=== PATIENT | male | born 1955 | race Caucasian/White ===

== ENCOUNTER 2016-08-01 12:37 | Outpatient (CLI) | payer OTHER | END 2016-08-01 12:38 | disposition home or self-care (01) | DX: R73.01 Impaired fasting glucose (principal); R79.0 Abnormal level of blood mineral ==

== ENCOUNTER 2016-08-11 11:01 | Outpatient (CLI) | payer OTHER | END 2016-08-11 11:02 | disposition home or self-care (01) | DX: R73.01 Impaired fasting glucose (principal); R79.0 Abnormal level of blood mineral ==

== ENCOUNTER 2016-10-08 11:07 | Outpatient (CLI) | payer OTHER ==
--- NOTE | 2016-10-09 09:50 | XRAY Report ---
TWO-VIEW CHEST: 10/08/2016 CLINICAL INDICATION: Pulmonary sarcoidosis. COMPARISON: 04/06/2014 FINDINGS: Frontal and lateral views of the chest demonstrate a normal cardiac silhouette. A left pierre bclavian dual-chamber pacemaker is now in place, with leads terminating in the expected locations of the right atrium and right ventricle. Bilateral hilar fullness persists, as does reticular nodular i nterstitial opacities predominant in the upper lobes, compatible with the given diagnosis of sarcoido sis. No effusion or pneumothorax is present. Previously noted mass-like consolidation in the right upper lobe has improved. IMPRESSION: FINDINGS COMPATIBLE WITH SARCOIDOSIS. NO EVIDENCE OF ACUTE CARDIOPULMONARY DISEASE. JOB #: [id number] EXT JOB #:[id number]
== END 2016-10-08 11:08 | disposition home or self-care (01) ==
LOC: DI.S 11:07
PROVIDERS: ATTEND Nurse Practitioner Family
DX: D86.0 Sarcoidosis of lung (principal)
CPT/HCPCS: 71020

== ENCOUNTER 2016-11-18 13:55 | Outpatient (CLI) | payer MEDICARE, OTHER ==
--- NOTE | 2016-11-20 11:43 | XRAY Report ---
RIGHT HAND, THREE VIEWS: 11/18/2016 CLINICAL HISTORY: Gout. FINDINGS: Mild narrowing is noted in the 1st MP joint and 3rd MP joint with a moderate degree of narrowing seen in the 2nd MP joint. Mild narrowing is noted in the proximal interphalangeal joints. Significant narrowing is seen in the distal interphalangeal joints of the ring and little fingers. Mild narrowing is seen in the distal interphalangeal joints of the index, middle, and thumb. There is a defect noted in the radial aspect of the head of the 2nd metacarpal. This is a V-shaped defect. This may be result of old trauma. Other possibility is erosive change due to gout. There is also subtle erosive change noted occurring in the ulnar aspect of the head of the 1st metacarpal that does appear to have an overhanging edge and may represent a subtle sign of gout. IMPRESSION: ARTHRITIC CHANGES NOTED IN THE RIGHT HAND. MOST OF THE ARTHRITIC CHANGE SEEN IS RELATED TO OSTEOARTHRITIS. EQUIVOCAL FINDINGS ARE NOTED IN REGARD TO GOUT INVOLVING THE RADIAL ASPECT OF THE HEAD OF THE 2ND METACARPAL AND THE ULNAR ASPECT OF THE HEAD OF THE 1ST METACARPAL. JOB #: [id number] EXT JOB #: [id number] LAMONTE
== END 2016-11-18 13:56 | disposition home or self-care (01) ==
LOC: DI.S 13:55
PROVIDERS: ATTEND Nurse Practitioner Family
DX: M19.041 Primary osteoarthritis, right hand (principal)

== ENCOUNTER 2016-11-30 08:00 | Outpatient (CLI) | payer MEDICARE | END 2016-11-30 23:59 | disposition home or self-care (01) | LOC: LAB.R 08:00 | PROVIDERS: ATTEND Nurse Practitioner Family | DX: R19.4 Change in bowel habit (principal) | CPT/HCPCS: 82270 ==

== ENCOUNTER 2016-12-03 07:57 | Outpatient (CLI) | payer MEDICARE ==
[2016-12-03 11:09] LABS: BASOPHILS # (AUTO) 0.1 10^3/uL (0.0-0.1); BASOPHILS % (AUTO) 1.3 %; EOSINOPHILS # (AUTO) 0.2 10^3/uL (0.0-0.7); HGB - HEMOGLOBIN 14.5 g/dL (14.0-18.0); LYMPHOCYTES # (AUTO) 0.6 10^3/uL (1.5-3.5); LYMPHOCYTES % (AUTO) 7.9 %; MEAN CORPUSCULAR HEMOGLOBIN 31.9 pg (27.0-31.0); MEAN CORPUSCULAR HGB CONC 33.7 g/dL (32.0-36.0); MEAN CORPUSCULAR VOLUME 94.8 fL (80.0-94.0); MEAN PLATELET VOLUME 8.4 fL (7.4-11.4); MONOCYTES # (AUTO) 0.7 10^3/uL (0.0-1.0); MONOCYTES % (AUTO) 10.4 %; NEUTROPHILS # (AUTO) 5.6 10^3/uL (1.5-6.6); NEUTROPHILS % (AUTO) 77.4 %; NUCLEATED RED BLOOD CELLS AUTO 0.2 /100WBC; RED BLOOD COUNT 4.54 10^6/uL (4.70-6.10); RED CELL DISTRIBUTION WIDTH 14.2 % (12.0-15.0); UNCORRECTED WHITE BLOOD COUNT 7.2 x10^3/uL; WHITE BLOOD COUNT 7.2 x10^3/uL (4.8-10.8)
[2016-12-03 11:23] LABS: ALBUMIN/GLOBULIN RATIO 1.2 (1.0-2.2); BILIRUBIN,TOTAL 0.8 mg/dL (0.2-1.0); CALCIUM 9.1 mg/dL (8.5-10.3); CREATININE 1.1 mg/dL (0.6-1.2); POTASSIUM 4.3 mmol/L (3.5-5.0); TOTAL PROTEIN 6.9 g/dL (6.7-8.2)
[2016-12-03 11:40] LABS: HEMOGLOBIN A1C 0.63 g/dL
== END 2016-12-03 07:58 | disposition home or self-care (01) ==
LOC: LAB.F 07:57
PROVIDERS: ATTEND Nurse Practitioner Family
DX: R73.01 Impaired fasting glucose (principal); D64.9 Anemia, unspecified; R79.0 Abnormal level of blood mineral
CPT/HCPCS: 36415; 80053; 83036; 83540; 84466; 85025

== ENCOUNTER 2017-04-01 09:37 | Outpatient (CLI) | payer MEDICARE | END 2017-04-01 09:38 | disposition home or self-care (01) | LOC: LAB.F 09:37 | PROVIDERS: ATTEND Nurse Practitioner Family | DX: Z78.9 Other specified health status (principal) | CPT/HCPCS: 36415; 86803 ==

== ENCOUNTER 2017-06-15 09:18 | Outpatient (CLI) | payer MEDICARE ==
[2017-06-15 18:06] LABS: BASOPHILS % (AUTO) 2.2 %; EOSINOPHILS % (AUTO) 3.5 %; HGB - HEMOGLOBIN 13.4 g/dL (14.0-18.0); LYMPHOCYTES % (AUTO) 11.9 %; MEAN CORPUSCULAR HEMOGLOBIN 30.5 pg (27.0-31.0); MEAN CORPUSCULAR HGB CONC 32.3 g/dL (32.0-36.0); MEAN CORPUSCULAR VOLUME 94.3 fL (80.0-94.0); MEAN PLATELET VOLUME 8.4 fL (7.4-11.4); MONOCYTES % (AUTO) 12.3 %; NEUTROPHILS % (AUTO) 70.1 %; PLT - PLATELET COUNT 232 10^3/uL (130-450); RED CELL DISTRIBUTION WIDTH 14.4 % (12.0-15.0)
[2017-06-15 18:22] LABS: ABNORMAL LYMPHS % (MANUAL) 0 %
[2017-06-15 18:31] LABS: % IRON SATURATION 19 % (20-50); ALBUMIN 3.7 g/dL (3.2-5.5); ALBUMIN/GLOBULIN RATIO 1.2 (1.0-2.2); ALKALINE PHOSPHATASE 61 IU/L (42-121); ALT ALANINE AMINOTRANSFERASE 13 IU/L (10-60); AST ASPARTATE AMINOTRANSFERASE 17 IU/L (10-42); BILIRUBIN,TOTAL 0.6 mg/dL (0.2-1.0); BUN - BLOOD UREA NITROGEN 28 mg/dL (6-20); CALCIUM 9.1 mg/dL (8.5-10.3); CARBON DIOXIDE - CO2 27 mmol/L (21-32); CHLORIDE 107 mmol/L (101-111); CHOL/HDL RATIO 6.1 (<5.0); CHOLESTEROL 158 mg/dL; CREATININE 1.3 mg/dL (0.6-1.2); GFR - MDRD 56 (>89); GLUCOSE 82 mg/dL (70-100); HDL CHOLESTEROL 26 mg/dL; IRON 73 ug/dL (45-182); LDL CHOLESTEROL,CALCULATED 113 mg/dL; LDL/HDL RATIO 4.3 (<3.6); SODIUM 138 mmol/L (135-145); TOTAL IRON BINDING CAPACITY 378 ug/dL (250-450); TOTAL PROTEIN 6.9 g/dL (6.7-8.2); TRANSFERRIN 270 mg/dL (180-329); URIC ACID 9.9 mg/dL (2.6-7.2); VLDL CHOLESTEROL 19 mg/dL
[2017-06-15 21:54] LABS: BAND NEUTROPHILS % (MANUAL) 4 %; BASOPHILS # (MANUAL) 0.1 10^3/uL (0-0.1); BASOPHILS % (MANUAL) 2 %; EOSINOPHILS # (MANUAL) 0.2 10^3/uL (0-0.7); LYMPHOCYTES # (MANUAL) 0.3 10^3/uL (1.5-3.5); LYMPHOCYTES % (MANUAL) 5 %; MONOCYTES # (MANUAL) 0.7 10^3/uL (0.0-1.0); NEUTROPHILS # (MANUAL) 4.6 10^3/uL (1.5-6.6); NEUTROPHILS % (MANUAL) 73 %; PLATELET ESTIMATE, MANUAL NORMAL (130-450,000) (NORMAL); PLATELET MORPHOLOGY NORMAL APPEARANCE (NORMAL); RBC MORPHOLOGY (MULTIPLE) NORMAL APPEARANCE (NORMAL)
[2017-06-15 21:55] LABS: DIFFERENTIAL COMMENT MANUAL DIFFERENTIAL
== END 2017-06-15 09:19 | disposition home or self-care (01) ==
LOC: LAB.S 09:18
PROVIDERS: ATTEND Nurse Practitioner Family
DX: E78.5 Hyperlipidemia, unspecified (principal); M10.9 Gout, unspecified; R79.0 Abnormal level of blood mineral
CPT/HCPCS: 36415; 80053; 80061; 82728; 83540; 83721; 84466; 84550; 85025

== ENCOUNTER 2017-07-06 14:28 | Outpatient (CLI) | payer MEDICARE ==
[2017-07-06 17:50] LABS: BASOPHILS # (AUTO) 0.1 10^3/uL (0.0-0.1); BASOPHILS % (AUTO) 1.1 %; EOSINOPHILS # (AUTO) 0.2 10^3/uL (0.0-0.7); EOSINOPHILS % (AUTO) 1.3 %; HGB - HEMOGLOBIN 14.5 g/dL (14.0-18.0); LYMPHOCYTES # (AUTO) 0.7 10^3/uL (1.5-3.5); LYMPHOCYTES % (AUTO) 5.4 %; MEAN CORPUSCULAR HEMOGLOBIN 30.3 pg (27.0-31.0); MEAN CORPUSCULAR HGB CONC 32.6 g/dL (32.0-36.0); MEAN PLATELET VOLUME 8.5 fL (7.4-11.4); MONOCYTES % (AUTO) 8.2 %; NEUTROPHILS # (AUTO) 10.1 10^3/uL (1.5-6.6); PLT - PLATELET COUNT 215 10^3/uL (130-450); RED BLOOD COUNT 4.78 10^6/uL (4.70-6.10); RED CELL DISTRIBUTION WIDTH 14.3 % (12.0-15.0); WHITE BLOOD COUNT 12.1 x10^3/uL (4.8-10.8)
[2017-07-06 18:52] LABS: HB2 TOTAL 15.5 g/dL; HEMOGLOBIN A1C 0.62 g/dL; HEMOGLOBIN A1C % 5.8 % (4.6-6.2)
== END 2017-07-06 14:29 | disposition home or self-care (01) ==
LOC: LAB.S 14:28
PROVIDERS: ATTEND Nurse Practitioner Family
DX: R73.01 Impaired fasting glucose (principal); N28.9 Disorder of kidney and ureter, unspecified
CPT/HCPCS: 36415; 83036; 85025

== ENCOUNTER 2017-07-31 10:02 | Outpatient (CLI) | payer MEDICARE ==
[2017-07-31 18:28] LABS: BUN - BLOOD UREA NITROGEN 15 mg/dL (6-20); CALCIUM 9.4 mg/dL (8.5-10.3); CARBON DIOXIDE - CO2 28 mmol/L (21-32); CHLORIDE 101 mmol/L (101-111); CHOL/HDL RATIO 6.2 (<5.0); CHOLESTEROL 174 mg/dL; CREATININE 0.8 mg/dL (0.6-1.2); GFR - MDRD 98 (>89); GLUCOSE 97 mg/dL (70-100); HDL CHOLESTEROL 28 mg/dL; LDL CHOLESTEROL,CALCULATED 123 mg/dL; LDL/HDL RATIO 4.4 (<3.6); SODIUM 136 mmol/L (135-145); VLDL CHOLESTEROL 23 mg/dL
== END 2017-07-31 10:03 | disposition home or self-care (01) ==
LOC: LAB.F 10:02
PROVIDERS: ATTEND Nurse Practitioner Family
DX: R94.4 Abnormal results of kidney function studies (principal); E78.5 Hyperlipidemia, unspecified; Z12.5 Encounter for screening for malignant neoplasm of prostate
CPT/HCPCS: 36415; 80048; 80061; G0103; 83721; 84153

== ENCOUNTER 2017-08-25 11:51 | Outpatient (CLI) | payer MEDICARE | END 2017-08-25 11:52 | disposition home or self-care (01) | LOC: LAB.F 11:51 | PROVIDERS: ATTEND Nurse Practitioner Family | DX: R97.20 Elevated prostate specific antigen [PSA] (principal) | CPT/HCPCS: 36415; 81599; 84402; 84403 ==

== ENCOUNTER 2017-09-12 10:58 | Inpatient (IN) | payer MEDICARE ==
[2017-09-12] MEDS ORDERED: FUROSEMIDE 40 MG/4 ML VIAL IVP STA (11:25)
[2017-09-12] MEDS ORDERED: diltiaZEM INJ 5 MG/ML VIAL IVP STA (11:25)
--- NOTE | 2017-09-12 11:26 | ED Physician Documentation ---
PD HPI DYSPNEA - Stated complaint Stated Complaint: SOA/DIZZY/NUMB FINGERS - Chief complaint Chief Complaint: Resp - History obtained from History obtained from: Patient - History of Present Illness Timing - onset: How many days ago (5) Timing - onset during: Rest Timing - duration: Days Timing - details: Gradual onset, Still present Improved by: O2, Sitting up Worsened by: Laying flat, Coughing Associated symptoms: Cough, Chest pain / discomfort, Bilateral edema Similar symptoms before: Diagnosis (COPD) Recently seen: Clinic - Additional information Additional information: 62-year-old male with a history of COPD has developed increasing dyspnea over the past week and he has not found any relief with the use of his inhalers. He did go and see his access assoc on a routine visit about 2 days ago and at that time he is saturating 100%. He did have CT scan done of his chest that day. The patient relates that over the past 4-5 days he has had increasing shortness of breath especially if he is laying flat or exerting himself. He has not been able to get relief with his inhaler. He has noticed some swelling in his ankles. Review of Systems Constitutional: denies: Fever Eyes: denies: Decreased vision Ears: denies: Ear pain Nose: denies: Congestion Throat: denies: Sore throat Cardiac: denies: Chest pain / pressure, Palpitations Respiratory: reports: Dyspnea, Cough GI: denies: Abdominal Pain, Nausea, Vomiting : denies: Dysuria, Frequency Skin: denies: Rash Musculoskeletal: reports: Extremity swelling. denies: Neck pain, Back pain, Extremity pain Neurologic: denies: Generalized weakness, Focal weakness, Numbness PD PAST MEDICAL HISTORY - Past Medical History Past Medical History: Yes Cardiovascular: Hypertension, Atrial fibrillation Respiratory: Other Musculoskeletal: Chronic back pain - Past Surgical History Past Surgical History: Yes Cardiovascular: Pacemaker HEENT: Tonsil/Adenoidectomy - Present Medications Home Medications: Ambulatory Orders Medication Instructions Recorded Confirmed Sotalol [Betapace] 80 mg PO BID 04/24/14 02/26/15 amLODIPine [Norvasc] 10 mg PO DAILY 11/13/14 02/26/15 Apixaban [Eliquis] 5 mg PO BID 02/26/15 02/26/15 Lisinopril 10 mg PO DAILY 02/26/15 02/26/15 - Allergies Allergies/Adverse Reactions: Allergies Allergy/AdvReac Type Severity Reaction Status Date / Time No Known Drug Allergies Allergy Verified 04/06/14 10:16 - Social History Does the pt smoke?: Yes Smoking Status: Former smoker Does the pt drink ETOH?: Yes Does the pt have substance abuse?: Yes - POLST Patient has POLST: No PD ED PE NORMAL - Vitals Vital signs reviewed: Yes (Tachycardic hypertensive and hypoxic) - General General: Alert and oriented X 3, No acute distress, Well developed/nourished - HEENT HEENT: Atraumatic, PERRL, EOMI - Neck Neck: Supple, no meningeal sign - Cardiac Cardiac: No murmur, Other (Irregularly irregular rate and rhythm with a rapid rate) - Respiratory Respiratory: No respiratory distress, Other - Abdomen Abdomen: Soft, Non tender - Back Back: No CVA TTP, No spinal TTP - Derm Derm: Normal color, Warm and dry, No rash - Extremities Extremities: No deformity, Other (Diminished breath sounds with Rales in the bases there is trace edema bilaterally that is pitting to the mid calf) - Neuro Neuro: No motor deficit, No sensory deficit Eye Opening: Spontaneous Motor: Obeys Commands Verbal: Oriented GCS Score: 15 - Psych Psych: Normal mood, Normal affect Results - Vitals Vitals: Vital Signs - 24 hr 09/12/17 11:02 Temperature 35.6 C L Heart Rate 110 H Respiratory 20 Rate Blood Pressure 146/98 H O2 Saturation 90 L Oxygen O2 Source [] Room air O2 Source [] Room air O2 Source Room air Oxygen Flow Rate 4 - EKG (time done) 1110 Rate: Rate (enter#) (123) Rhythm: Atrial fibrillation Ischemia: Normal ST segments, Non specific changes Compare to prior EKG: Changed from prior EKG (SPT 04-06-2018 rate has increased) Computer interpretation: Agree with computer - Labs Labs: Laboratory Tests 09/12/17 09/12/17 09/12/17 11:09 11:09 11:09 WBC 11.1 H RBC 4.90 Hgb 14.6 Hct 46.0 MCV 93.9 MCH 29.9 MCHC 31.8 L RDW 16.8 H Plt Count 242 MPV 7.9 Neut # 9.6 H Lymph # 0.6 L Kaufman # 0.7 Eos # 0.0 Baso # 0.1 Absolute Nucleated RBC 0.01 Nucleated RBC % 0.1 Sodium 138 Potassium 3.7 Chloride 101 Carbon Dioxide 29 Anion Gap 8.0 BUN 19 Creatinine 0.9 Estimated GFR (MDRD) 85 L Glucose 203 H Calcium 9.5 Total Bilirubin 1.1 H AST 23 ALT 14 Alkaline Phosphatase 85 Troponin I < 0.04 B-Natriuretic Peptide Total Protein 7.3 Albumin 3.8 Globulin 3.5 Albumin/Globulin Ratio 1.1 Lipase 51 Urine Color Urine Clarity Urine pH Ur Specific [place] Urine Protein Urine Glucose (UA) Urine Ketones Urine Occult Blood Urine Nitrite Urine Bilirubin Urine Urobilinogen Ur Leukocyte Esterase Urine RBC Urine WBC Ur Squamous Epith Cells Urine Bacteria Urine Casts Urine Mucus Ur Microscopic Review Urine Culture Comments 09/12/17 09/12/17 11:09 11:45 WBC RBC Hgb Hct MCV MCH MCHC RDW Plt Count MPV Neut # Lymph # Kaufman # Eos # Baso # Absolute Nucleated RBC Nucleated RBC % Sodium Potassium Chloride Carbon Dioxide Anion Gap BUN Creatinine Estimated GFR (MDRD) Glucose Calcium Total Bilirubin AST ALT Alkaline Phosphatase Troponin I B-Natriuretic Peptide 1665 H Total Protein Albumin Globulin Albumin/Globulin Ratio Lipase Urine Color YELLOW Urine Clarity CLEAR Urine pH 5.0 Ur Specific [place] 1.025 Urine Protein 100 H Urine Glucose (UA) NEGATIVE Urine Ketones NEGATIVE Urine Occult Blood TRACE-LYSE Urine Nitrite POSITIVE H Urine Bilirubin NEGATIVE Urine Urobilinogen 1 (NORMAL) Ur Leukocyte Esterase TRACE H Urine RBC 0-5 Urine WBC 6-10 H Ur Squamous Epith Cells NONE SEEN Urine Bacteria Few Urine Casts 0-2 Hyaline Casts Urine Mucus Few Strands Ur Microscopic Review INDICATED Urine Culture Comments INDICATED - Rads (name of study) 2 veiw chest Radiology: Prelim report reviewed (Impression: 1. Moderate right and small left pleural effusions, new from prior exam. 2. Moderate diffuse interstitial abnormality throughout both lungs with bilateral perihilar fullness similar to prior exam. 3. Heart and mediastinum appear stable with cardiac pacer leads in unchanged position.), EMP read indepedently, See rad report Procedures - IVC sono (time) 1115 Bedside IVC sono: IVC measures (cm) (2.22), IVC collapsed c insp (cm) (1.89), Collapsibility index (0.15), High CVP, Fluid overload PD MEDICAL DECISION MAKING - ED course Complexity details: reviewed old records, reviewed results, re-evaluated patient , considered differential, d/w patient ED course: 62-year-old male with a history of COPD and atrial fibrillation with a pacemaker in place has developed increasing exertional dyspnea and orthopnea and on evaluation here today is found to be in failure with a atrial fibrillation with rapid ventricular response. We have requested dose of diltiazem and Lasix. He has some improvement with treatment but remains hypoxic. He has urinary tract infection as well. Dr. Akbar is consulted in the case and will treat the patient further in the hospital. Departure - Departure Disposition: [facility] DC/Xfer Clinical Impression: Congestive heart failure Qualifiers: Heart failure type: unspecified Heart failure chronicity: acute on chronic Qualified Code(s): I50.9 - Heart failure, unspecified Urinary tract infection Qualifiers: Urinary tract infection type: acute cystitis Hematuria presence: without hematuria Qualified Code(s): N30.00 - Acute cystitis without hematuria Condition: Serious
[2017-09-12] MEDS ORDERED: DILTIAZEM 50 MG/10 ML VIAL IVP STA (11:34)
[2017-09-12 11:37] LABS: BASOPHILS # (AUTO) 0.1 10^3/uL (0.0-0.1); BASOPHILS % (AUTO) 0.9 %; EOSINOPHILS % (AUTO) 0.2 %; HGB - HEMOGLOBIN 14.6 g/dL (14.0-18.0); LYMPHOCYTES # (AUTO) 0.6 10^3/uL (1.5-3.5); LYMPHOCYTES % (AUTO) 5.7 %; MEAN CORPUSCULAR HEMOGLOBIN 29.9 pg (27.0-31.0); MEAN CORPUSCULAR HGB CONC 31.8 g/dL (32.0-36.0); MEAN CORPUSCULAR VOLUME 93.9 fL (80.0-94.0); MEAN PLATELET VOLUME 7.9 fL (7.4-11.4); MONOCYTES # (AUTO) 0.7 10^3/uL (0.0-1.0); MONOCYTES % (AUTO) 6.7 %; NEUTROPHILS # (AUTO) 9.6 10^3/uL (1.5-6.6); NEUTROPHILS % (AUTO) 86.5 %; PLT - PLATELET COUNT 242 10^3/uL (130-450); RED CELL DISTRIBUTION WIDTH 16.8 % (12.0-15.0); WHITE BLOOD COUNT 11.1 x10^3/uL (4.8-10.8)
[2017-09-12 11:46] LABS: ALBUMIN 3.8 g/dL (3.2-5.5); ALBUMIN/GLOBULIN RATIO 1.1 (1.0-2.2); BILIRUBIN,TOTAL 1.1 mg/dL (0.2-1.0); CALCIUM 9.5 mg/dL (8.5-10.3); CREATININE 0.9 mg/dL (0.6-1.2); TOTAL PROTEIN 7.3 g/dL (6.7-8.2)
[2017-09-12 11:57] LABS: BILIRUBIN,URINE NEGATIVE (NEGATIVE); GLUCOSE, URINE (UA) NEGATIVE (NEGATIVE); KETONES,URINE (UA) NEGATIVE (NEGATIVE); LEUKOCYTE ESTERASE, URINE TRACE (NEGATIVE); NITRITE,URINE POSITIVE (NEGATIVE); OCCULT BLOOD,URINE TRACE-LYSE (NEGATIVE); PROTEIN,URINE 100 mg/dL (NEGATIVE); UROBILINOGEN,URINE 1 (NORMAL) E.U./dL (NORMAL)
[2017-09-12 11:58] LABS: CLARITY,URINE CLEAR (CLEAR)
[2017-09-12 12:09] LABS: BACTERIA,URINE Few /HPF (None Seen); CASTS, URINE 0-2 Hyaline Casts /LPF; MUCUS,URINE Few Strands; RBC,URINE 0-5 /HPF (0-5); SQUAMOUS EPITHELIAL CELL,UR NONE SEEN (<= Few)
--- NOTE | 2017-09-12 12:40 | XRAY Report ---
EXAM: CHEST RADIOGRAPHY EXAM DATE: 09/12/2017 12:06 PM. CLINICAL HISTORY: Shortness of breath, diminished breath sounds. History of sarcoidosis. COMPARISON: 10/08/2016. TECHNIQUE: 2 views. FINDINGS: Lungs/Pleura: Moderate right and small left pleural effusions are noted. Diffuse interstitial abnorma lity throughout both lungs with bilateral perihilar fullness, similar to prior exam. Mediastinum: Heart and mediastinum are stable. Cardiac pacer leads appear in unchanged position. Other: None. IMPRESSION: 1. Moderate right and small left pleural effusions, new from prior exam. 2. Moderate diffuse interstitial abnormality throughout both lungs with bilateral perihilar fullness, similar to prior exam. 3. Heart and mediastinum appear stable with cardiac pacer leads in unchanged position. ELIANE Referring Provider Line: [phone] SITE ID: [id number]
[2017-09-12] MEDS ORDERED: TEMAZEPAM 15 MG CAPSULE PO PRN (15:19)
[2017-09-12] MEDS ORDERED: HYDROmorphone 0.5 MG/0.5 ML SYRINGE IVP PRN (15:19)
[2017-09-12] MEDS ORDERED: PROCHLORPERAZINE 10 MG/2 ML VIAL IVP PRN (15:19)
[2017-09-12] MEDS: METOPROLOL 5 MG/5 ML VIAL IVP SCH (20:27)
[2017-09-12] MEDS: SODIUM CHLORIDE FLUSH 0.9% 10 ML SYRINGE IVP SCH ×2 (20:27→23:58)
[2017-09-12] MEDS: CIPROFLOXACIN 400 MG/200 ML 200 ML IV SCH (20:49)
--- NOTE | 2017-09-12 20:49 | HISTORY & PHYSICAL EXAMINATION ---
DATE OF SERVICE: 09/12/2017 Physician: Sarah Mejia MD HISTORY OF PRESENT ILLNESS: This is a 62-year-old white male with a history of hypertension, tachybrady syndrome requiring a pacemaker implant approximately 4 years ago, pneumonia that he says led to sarcoidosis for which he is followed by a Label Rewinder. He sees his Radio Mechanic Apprentice approximately once a year, at which time he also gets his pacemaker checked. He is due for this check coming up, therefore, the last one was a year ago and everything was stable according to the patient. The patient presents with a 2-3 day history of shortness of breath with activity , new leg edema, PND and orthopnea. The patient states he normally keeps half a gallon of water by his bedside and keeps trying to "flush out the body." He was never told to have fluid restriction. The patient also reports that 3 days ago he lost all of his medications, looked in all the normal places that he keeps them and simply has not been able to find them. He has just asked for an override for lost prescriptions with his pharmacy, but has not received them yet. He therefore has been on no medicines for about 3 days. The patient denies any chest pain, palpitations, syncope or lightheadedness. There has been no cough or fever. PAST MEDICAL HISTORY: Tachybrady syndrome with a pacemaker. The patient is on Pradaxa for his atrial fibrillation as well as on sotalol. There is a history of hypertension and sarcoidosis. REVIEW OF SYSTEMS: A comprehensive review of systems was performed and the pertinent positives are listed above. The rest are negative. FAMILY HISTORY: No inherited diseases. SOCIAL HISTORY: The patient is an ex-smoker, quit 5-10 years ago, drinks beer socially. No illicit drug use. The patient is a , lives alone but is active. ALLERGIES: NONE. MEDICATIONS: 1. Allopurinol 100 mg daily. 2. Amlodipine 10 mg daily. 3. Pradaxa 150 b.i.d. 4. Lisinopril 20 mg b.i.d. 5. Sotalol 80 mg b.i.d. PHYSICAL EXAMINATION: GENERAL: Elderly white male. He is in mild to moderate respiratory distress with speaking. VITAL SIGNS: Blood pressure 150/98, heart rate 110 in atrial fibrillation. He is afebrile. Room air saturation is 90%, on 4 liters nasal cannula it increases to 96%. HEENT: Reveals moist oral mucosa and otherwise unremarkable. NECK: No JVD in a vertical position. No carotid bruits. CHEST: Bibasilar rales up one-third. No wheezes. HEART: Heart sounds are very distant. No murmurs. No gallop or heave. ABDOMEN: Soft, distended, possible ascites. No organomegaly. Nontender. Normal bowel sounds. EXTREMITIES: 1+ ankle edema. No clubbing or cyanosis. NEUROLOGIC: Intact. LABORATORY DATA: Normal electrolytes, normal BUN and creatinine. Normal liver tests. First troponin is not detectable at less than 0.04. BNP 1665. White blood count 11.1 with a slight left shift. Hemoglobin 14.6, platelet count normal at 242. No INR was done. Urinalysis showed no squamous cells, high protein, positive nitrites and trace esterase with few hyaline casts and bacteria. Chest x-ray: moderate diffuse interstitial lung disease and bilateral perihilar fullness, also moderate small left and right pleural effusions. The heart size is normal. EKG: Atrial fibrillation, rate 110-123, diffuse flat T waves and poor R-wave progression. An Echo, which was done in 2013, showed normal LV size and EF of 70%. IMPRESSION/DIAGNOSIS. 1. Congestive heart failure exacerbation, unknown if this is systolic or diastolic dysfunction. 2. Atrial fibrillation on Pradaxa and sotalol, with RVR. 3. Tachybrady syndrome with pacemaker. 4. Hypertension. 5. Urinary tract infection with CBC consistent with an infection. ASSESSMENT AND PLAN: 1. Admit the patient to telemetry. Begin IV diuresis, follow his I's and O's, daily weights, electrolytes, BUN and creatinine and magnesium. The most likely cause is that he has run out of his medications over the 3 days putting him into heart failure, especially in a gentleman who tries to "flush his body out with half a gallon of water daily." 2. Resume his anticoagulant, resume Sotalol and try for rate control and it may chemically cardiovert him to sinus rhythm. Because of the need for higher IV diuretic doses, plus rate control medications, his Amlodipine will be put on hold 3. Resume Lisinopril for BP control. 4. Treat his UTI, starting with iv antibiotics and plan a prolonged treatment course for potential prostatitis. Urology followup after discharge was discussed with the patient. He is agreeable with the plan. Deep venous thrombosis prophylaxis: Pradaxa and SCDs. CODE STATUS: FULL CODE. ATTESTATION: The patient is expected to be discharged or transferred to another facility within 96 hours. TD: 09/12/2017 20:48 LAMONTE
[2017-09-12] MEDS: DABIGATRAN 75 MG CAPSULE PO SCH (21:14)
[2017-09-12] MEDS: LISINOPRIL 20 MG TABLET PO SCH (21:14)
[2017-09-12] MEDS: FUROSEMIDE 20 MG/2 ML VIAL IVP SCH (21:15)
[2017-09-12] MEDS: SODIUM CHLORIDE FLUSH 0.9% 10 ML SYRINGE IVP PRN (21:15)
[2017-09-12] MEDS: SOTALOL 80 MG TABLET PO SCH (21:19)
[2017-09-13] MEDS: METOPROLOL 5 MG/5 ML VIAL IVP SCH ×2 (01:31→08:18)
[2017-09-13] MEDS: SODIUM CHLORIDE FLUSH 0.9% 10 ML SYRINGE IVP PRN (01:40)
[2017-09-13 06:34] LABS: BASOPHILS # (AUTO) 0.1 10^3/uL (0.0-0.1); BASOPHILS % (AUTO) 0.9 %; EOSINOPHILS # (AUTO) 0.1 10^3/uL (0.0-0.7); EOSINOPHILS % (AUTO) 1.2 %; HGB - HEMOGLOBIN 14.9 g/dL (14.0-18.0); LYMPHOCYTES # (AUTO) 0.8 10^3/uL (1.5-3.5); LYMPHOCYTES % (AUTO) 7.5 %; MEAN CORPUSCULAR HEMOGLOBIN 29.5 pg (27.0-31.0); MEAN CORPUSCULAR HGB CONC 30.5 g/dL (32.0-36.0); MEAN CORPUSCULAR VOLUME 96.7 fL (80.0-94.0); MEAN PLATELET VOLUME 7.4 fL (7.4-11.4); MONOCYTES # (AUTO) 1.4 10^3/uL (0.0-1.0); MONOCYTES % (AUTO) 12.8 %; NEUTROPHILS # (AUTO) 8.6 10^3/uL (1.5-6.6); NEUTROPHILS % (AUTO) 77.6 %; PLT - PLATELET COUNT 214 10^3/uL (130-450); RED BLOOD COUNT 5.04 10^6/uL (4.70-6.10); RED CELL DISTRIBUTION WIDTH 18.1 % (12.0-15.0); WHITE BLOOD COUNT 11.1 x10^3/uL (4.8-10.8)
[2017-09-13 07:09] LABS: CALCIUM 9.2 mg/dL (8.5-10.3); CREATININE 0.9 mg/dL (0.6-1.2); MAGNESIUM 1.9 mg/dL (1.7-2.8)
[2017-09-13] MEDS: CIPROFLOXACIN 400 MG/200 ML 200 ML IV SCH ×2 (08:18→20:59)
[2017-09-13] MEDS: POLYETHYLENE GLYCOL 3350 17 GM PACKET PO SCH ×2 (08:19→09:36)
[2017-09-13] MEDS: DABIGATRAN 75 MG CAPSULE PO SCH ×2 (08:19→21:09)
[2017-09-13] MEDS: FAMOTIDINE 20 MG TABLET PO SCH (08:19)
[2017-09-13] MEDS: ALLOPURINOL 100 MG TABLET PO SCH (08:20)
[2017-09-13] MEDS: LISINOPRIL 20 MG TABLET PO SCH ×2 (08:20→21:10)
[2017-09-13] MEDS: SOTALOL 80 MG TABLET PO SCH ×2 (08:33→21:10)
[2017-09-13] MEDS: FUROSEMIDE 20 MG/2 ML VIAL IVP SCH (08:47)
[2017-09-13] MEDS: SODIUM CHLORIDE FLUSH 0.9% 10 ML SYRINGE IVP SCH ×2 (08:47→21:09)
[2017-09-13] MEDS: METOPROLOL TARTRATE 50 MG TABLET PO SCH ×2 (09:12→21:10)
--- NOTE | 2017-09-13 11:14 | CT Report ---
EXAM: CT ABDOMEN AND PELVIS (CT KUB) EXAM DATE: 09/13/2017 10:32 AM. CLINICAL HISTORY: UTI. COMPARISONS: None. TECHNIQUE: Routine axial helical CT imaging was performed through the abdomen and pelvis without IV c ontrast. Reconstructions: Coronal and sagittal. In accordance with CT protocol optimization, one or more of the following dose reduction techniques w ere utilized for this exam: automated exposure control, adjustment of mA and/or KV based on patient s ize, or use of iterative reconstructive technique. FINDINGS: Lung Bases: Moderate right and small left pleural effusions. Patchy consolidation in the lingula. Sma ll groundglass nodular opacity in the RML most likely infectious/inflammatory. Subsegmental bilateral lower lobe atelectasis or consolidation. Mild groundglass attenuation at the lower lungs bilaterally , edema versus infiltrate. Coronary artery calcifications. Cardiac pacing leads. Kidneys/ureters: Small amount of thickening calculi measuring 3 mm the midpole of the right kidney an d 2 mm at the lower pole of the left kidney. No hydronephrosis. No hydroureter. No convincing uretera l calculi. No contour deforming renal mass. Other Solid Organs: 22 mm left adrenal nodule, indeterminate. Gallbladder/Bile Ducts: Contracted gallbladder with calcified gallstone. No secondary signs of inflam mation are evident. Peritoneal Cavity: There is lipomatosis or possibly lipoma of the ileocecal valve. No other mass or e vidence of acute inflammatory process. No evidence of obstruction. Pelvic Organs: No bladder stones or wall thickening. Noncontrast images of the visualized pelvic orga ns are unremarkable. Vasculature: Patient is status post aortobiiliac endovascular stent graft repair of abdominal aortic aneurysm. The aneurysm sac measures up to approximately 55 mm transverse. Other: None. IMPRESSION: No hydronephrosis. No ureteral calculi. Small bilateral nonobstructing renal calculi are present. Patchy lingular consolidation, groundglass nodular opacity in the RML, likely infectious/inflammatory . Subsegmental atelectasis or consolidation at the lower lobes bilaterally. Moderate right and small left pleural effusions. Abdominal aortic aneurysm status post endovascular stent graft repair. Other findings as noted above. [facility] Referring Provider Line: [phone] SITE ID: [id number]
--- NOTE | 2017-09-13 11:21 | PROVIDER PROGRESS NOTE ---
Assessment/Plan - Problem List (1) Acute systolic congestive heart failure, NYHA class 4 Assessment/Plan: Today's Echo shows 4 chamber enlargement, severe global LV hypkinesis, LVEF <20 % and pulmonary HTN with PAP 55-60 mmHg, and Cor Pulmonale with a flattened septum. This may be a tachycardia-induced cardiomyopathy, since the patient cannot feel his rapid Afib and therefore may have been in rapid Afib for a long time. Alternatively this may be an ischemic Cardiomyopathy, since coronary calificatioms are seen on CT. Also, sarcoid cardimyopathy may be present or end- stage hypertensive cardiomyopathy (but he does not have significant LVH). Will change the Sotalol and Metoprolol to Coreg, add Spironolactone, continue diuresis with Lasix, continue ASA and Lisinopril. Monitor I's and O's and daily weight, electrolytes, Mg, BUN/creat. (2) Atrial fibrillation with RVR Assessment/Plan: As above, will stop Sotalol, as it is not maintaining sinus rhythm. Will start Coreg, high doses, for CHF plus rate control. Cardizem may also be needed for rate control. Continue Pardaxa. (3) Hypertension Assessment/Plan: Adjust meds for BP control. (4) Tachy-parag syndrome Assessment/Plan: Pacer in for a backup rate, as his tachycardia needs incresing doses of HR slowinh meds. Monitor on telemetry. (5) History of AAA (abdominal aortic aneurysm) repair Assessment/Plan: Stable abdominal exam. Stable AAA repair findings on CT. Continue ASA and check lipids for possible statin need. Also he needs better BP control (6) Sarcoidosis Assessment/Plan: Evidence of some sarcoid change in chest, by CT (KUB). Will not start a steroid yet, until CHF more treated. (7) Cor pulmonale Assessment/Plan: Non-compliance with CPP is likely adding to this finding. Continue management as in #1. (8) SANDRA (obstructive sleep apnea) Assessment/Plan: Non-complaint with CPAP for 2-3 years. This may be adding to Afib. Will check an overnite oximetry. - Current Meds Current Meds: Current Medications Generic Name Dose Route Start Last Admin Trade Name Freq PRN Reason Stop Dose Admin Allopurinol 100 mg 09/13/17 09:00 09/13/17 08:20 Zyloprim PO 100 mg DAILY MARLO Administration Dabigatran 150 mg 09/12/17 21:00 09/13/17 08:19 Pradaxa PO 150 mg BID MARLO Administration Famotidine 20 mg 09/13/17 09:00 09/13/17 08:19 Pepcid PO 20 mg DAILY MARLO Administration Furosemide 20 mg 09/12/17 21:00 09/13/17 08:47 Lasix Inj 20mg Vial IVP 20 mg BID MARLO Administration Ciprofloxacin 200 mls @ 200 mls/hr 09/12/17 20:00 09/13/17 09:30 Cipro 400 Mg/200 Ml IV Infused Q12H MARLO Infusion Lisinopril 20 mg 09/12/17 21:00 09/13/17 08:20 Zestril PO 20 mg BID MARLO Administration Metoprolol Tartrate 50 mg 09/13/17 09:00 09/13/17 09:12 Lopressor PO 50 mg BID MARLO Administration Polyethylene Glycol 17 gm 09/13/17 09:00 09/13/17 09:36 Miralax PO Not Given DAILY MARLO Sodium Chloride 10 ml 09/12/17 15:19 09/13/17 01:40 Normal Saline Flush 0.9% IVP 10 ml PRN PRN Administration NEEDED PER PROVIDER ORDERS Sodium Chloride 10 ml 09/12/17 17:00 09/13/17 08:47 Normal Saline Flush 0.9% IVP 10 ml 0100,0900,1700 MARLO Administration Sotalol HCl 80 mg 09/12/17 21:00 09/13/17 08:33 Betapace PO 80 mg BID MARLO Administration - Lab Result Fish Bone Diagrams: 09/13/17 06:19 09/13/17 06:56 - Additional Planning My Orders: My Active Orders 09/12/17 16:00 CULTURE, BLOOD #1 [RM] Stat 09/12/17 17:57 CULTURE, BLOOD #2 [RM] Stat 09/12/17 20:00 Ciprofloxacin 400 mg/200 ml [Cipro 400 mg/200 ml] 200 ml IV Q12H 09/12/17 21:00 Dabigatran [Pradaxa] 150 mg PO BID FUROSEMIDE INJ 20mg VIAL [LASIX INJ 20mg VIAL] 20 mg IVP BID Lisinopril [Zestril] 20 mg PO BID Sotalol [Betapace] 80 mg PO BID 09/13/17 09:00 Allopurinol [Zyloprim] 100 mg PO DAILY Metoprolol Tartrate [Lopressor] 50 mg PO BID 09/14/17 05:00 BMP - BASIC METABOLIC PANEL [CHEM] DAILYLAB CBC - COMP BLD CT W/AUTO DIFF [HEME] DAILYLAB MAGNESIUM [CHEM] DAILYLAB 09/15/17 05:00 BMP - BASIC METABOLIC PANEL [CHEM] DAILYLAB CBC - COMP BLD CT W/AUTO DIFF [HEME] DAILYLAB Subjective - Subjective Patient Reports: Feeling Better, Shortness of Breath, Other (Today the patient shared more PMH with me: He had Renal failure and saw a Rheostat Assembler who stopped many of his meds, down to just 4 meds, and his renal failure improved. Also, the patient did have Cardioversion once, then the pacemaker was implanted. Also, the patient has had a pharmaceutical stress test and a cor. angio, but does not know the results, cannot remember if there were coronary blockages. Also, he was diagnosed with Sleep Apnea and used his CPAP intermittently and then returned the device 2-3 years ago. Also, he reports AAA repair with a stent several years ago.) Nursing Reports: Other (Tachy as high as 170 bpm) Objective Vital Signs: Vital Signs - 24 hr 09/12/17 09/12/17 09/12/17 15:45 16:00 20:00 Temperature 36.5 C 36.6 C Heart Rate 94 Heart Rate [ 78 88 Apical] Respiratory 20 21 22 Rate Blood Pressure 148/113 H Blood Pressure [Left Brachial artery] Blood Pressure 143/104 H 140/96 H [Right Brachial artery] O2 Saturation 96 98 96 09/12/17 09/12/17 09/12/17 20:25 20:27 20:40 Temperature Heart Rate Heart Rate [ 100 125 H Apical] Respiratory Rate Blood Pressure 148/109 H Blood Pressure 148/109 H 138/103 H [Left Brachial artery] Blood Pressure 148/109 H 138/103 H [Right Brachial artery] O2 Saturation 09/12/17 09/12/17 09/12/17 20:45 20:50 21:05 Temperature Heart Rate Heart Rate [ 118 H 88 93 Apical] Respiratory Rate Blood Pressure Blood Pressure 153/103 H 140/96 H 157/97 H [Left Brachial artery] Blood Pressure [Right Brachial artery] O2 Saturation 05/12/18 05/12/18 05/13/18 21:20 21:35 00:00 Temperature 37.0 C Heart Rate Heart Rate [ 98 105 H 98 Apical] Respiratory 18 Rate Blood Pressure Blood Pressure 152/109 H 150/107 H 123/96 H [Left Brachial artery] Blood Pressure [Right Brachial artery] O2 Saturation 97 09/13/17 09/13/17 09/13/17 01:31 01:38 01:41 Temperature Heart Rate Heart Rate [ 120 H 103 H Apical] Respiratory Rate Blood Pressure 137/104 H Blood Pressure 146/101 H 133/93 H [Left Brachial artery] Blood Pressure [Right Brachial artery] O2 Saturation 09/13/17 09/13/17 09/13/17 01:46 01:59 02:15 Temperature Heart Rate Heart Rate [ 117 H 100 90 Apical] Respiratory Rate Blood Pressure Blood Pressure 149/106 H 143/100 H 150/107 H [Left Brachial artery] Blood Pressure [Right Brachial artery] O2 Saturation 09/13/17 09/13/17 09/13/17 02:31 04:00 07:37 Temperature 36.7 C 36.5 C Heart Rate Heart Rate [ 108 H 102 H Apical] Respiratory 20 16 Rate Blood Pressure Blood Pressure 154/112 H 133/100 H 138/104 H [Left Brachial artery] Blood Pressure [Right Brachial artery] O2 Saturation 96 92 09/13/17 09/13/17 09/13/17 07:58 08:18 08:25 Temperature Heart Rate Heart Rate [ 111 H 77 Apical] Respiratory 24 Rate Blood Pressure 140/101 H Blood Pressure 142/101 H 130/94 H [Left Brachial artery] Blood Pressure [Right Brachial artery] O2 Saturation 98 09/13/17 09/13/17 09/13/17 08:30 08:45 09:12 Temperature Heart Rate Heart Rate [ 64 78 Apical] Respiratory Rate Blood Pressure 135/99 H Blood Pressure 143/98 H 135/99 H [Left Brachial artery] Blood Pressure [Right Brachial artery] O2 Saturation Oxygen O2 Source Nasal cannula I&O (Last 24 Hrs): Intake and Output Totals x24h 09/11/17 09/12/17 09/13/17 23:59 23:59 23:59 Intake Total 770 440 Output Total 800 1225 Balance -30 -785 General: Oriented x3 HEENT: Mucous membr. moist/pink Neck: Supple, No JVD Neuro: Non Focal Cardiovascular: Other (Irreg, distant HS) Abdomen: Other (Distended vs obese with pannus) Extremities: No edema (R ankle 1+ edema, non on L) - Results Results: Laboratory Results WBC 11.1 x10^3/uL (4.8-10.8) H 09/13/17 06:19 RBC 5.04 10^6/uL (4.70-6.10) 09/13/17 06:19 Hgb 14.9 g/dL (14.0-18.0) 09/13/17 06:19 Hct 48.8 % (42.0-52.0) 09/13/17 06:19 MCV 96.7 fL (80.0-94.0) H 09/13/17 06:19 MCH 29.5 pg (27.0-31.0) 09/13/17 06:19 MCHC 30.5 g/dL (32.0-36.0) L 09/13/17 06:19 RDW 18.1 % (12.0-15.0) H 09/13/17 06:19 Plt Count 214 10^3/uL (130-450) 09/13/17 06:19 MPV 7.4 fL (7.4-11.4) 09/13/17 06:19 Neut # 8.6 10^3/uL (1.5-6.6) H 09/13/17 06:19 Lymph # 0.8 10^3/uL (1.5-3.5) L 09/13/17 06:19 [place] # 1.4 10^3/uL (0.0-1.0) H 09/13/17 06:19 Eos # 0.1 10^3/uL (0.0-0.7) 09/13/17 06:19 Baso # 0.1 10^3/uL (0.0-0.1) 09/13/17 06:19 Absolute Nucleated RBC 0.01 x10^3/uL 09/13/17 06:19 Nucleated RBC % 0.1 /100WBC 09/13/17 06:19 Sodium 139 mmol/L (135-145) 09/13/17 06:56 Potassium 4.1 mmol/L (3.5-5.0) 09/13/17 06:56 Chloride 104 mmol/L (101-111) 09/13/17 06:56 Carbon Dioxide 29 mmol/L (21-32) 09/13/17 06:56 Anion Gap 6.0 (6-13) 09/13/17 06:56 BUN 26 mg/dL (6-20) H 09/13/17 06:56 Creatinine 0.9 mg/dL (0.6-1.2) 09/13/17 06:56 Estimated GFR (MDRD) 85 (>89) L 09/13/17 06:56 Glucose 98 mg/dL (70-100) 09/13/17 06:56 Calcium 9.2 mg/dL (8.5-10.3) 09/13/17 06:56 Magnesium 1.9 mg/dL (1.7-2.8) 09/13/17 06:56 Total Bilirubin 1.1 mg/dL (0.2-1.0) H 09/12/17 11:09 AST 23 IU/L (10-42) 09/12/17 11:09 ALT 14 IU/L (10-60) 09/12/17 11:09 Alkaline Phosphatase 85 IU/L (42-121) 09/12/17 11:09 Troponin I 0.08 ng/mL (<0.49) 09/13/17 00:57 B-Natriuretic Peptide 967 pg/mL (5-100) H 09/13/17 06:19 Total Protein 7.3 g/dL (6.7-8.2) 09/12/17 11:09 Albumin 3.8 g/dL (3.2-5.5) 09/12/17 11:09 Globulin 3.5 g/dL (2.1-4.2) 09/12/17 11:09 Albumin/Globulin Ratio 1.1 (1.0-2.2) 09/12/17 11:09 Lipase 51 U/L (22-51) 09/12/17 11:09 Urine Color YELLOW 09/12/17 11:45 Urine Clarity CLEAR (CLEAR) 09/12/17 11:45 Urine pH 5.0 PH (5.0-7.5) 09/12/17 11:45 Ur Specific [place] 1.025 (1.002-1.030) 09/12/17 11:45 Urine Protein 100 mg/dL (NEGATIVE) H 09/12/17 11:45 Urine Glucose (UA) NEGATIVE mg/dL (NEGATIVE) 09/12/17 11:45 Urine Ketones NEGATIVE mg/dL (NEGATIVE) 09/12/17 11:45 Urine Occult Blood TRACE-LYSE (NEGATIVE) 09/12/17 11:45 Urine Nitrite POSITIVE (NEGATIVE) H 09/12/17 11:45 Urine Bilirubin NEGATIVE (NEGATIVE) 09/12/17 11:45 Urine Urobilinogen 1 (NORMAL) E.U./dL (NORMAL) 09/12/17 11:45 Ur Leukocyte Esterase TRACE (NEGATIVE) H 09/12/17 11:45 Urine RBC 0-5 /HPF (0-5) 09/12/17 11:45 Urine WBC 6-10 /HPF (0-3) H 09/12/17 11:45 Ur Squamous Epith Cells NONE SEEN (<= Few) 09/12/17 11:45 Urine Bacteria Few /HPF (None Seen) 09/12/17 11:45 Urine Casts 0-2 Hyaline Casts /LPF 09/12/17 11:45 Urine Mucus Few Strands 09/12/17 11:45 Ur Microscopic Review INDICATED 09/12/17 11:45 Urine Culture Comments INDICATED 09/12/17 11:45 ABX Reporting Has patient been on IV antibiotics over the past 48 hours?: Yes
[2017-09-13] MEDS ORDERED: MORPHINE 2 MG/ML SYRINGE IVP ONE (14:12)
[2017-09-13] MEDS ORDERED: FUROSEMIDE 20 MG/2 ML VIAL IVP SCH (14:20)
[2017-09-14] MEDS: SODIUM CHLORIDE FLUSH 0.9% 10 ML SYRINGE IVP SCH ×3 (00:04→16:56)
[2017-09-14 05:54] LABS: BASOPHILS # (AUTO) 0.1 10^3/uL (0.0-0.1); BASOPHILS % (AUTO) 1.3 %; EOSINOPHILS # (AUTO) 0.2 10^3/uL (0.0-0.7); EOSINOPHILS % (AUTO) 2.3 %; HGB - HEMOGLOBIN 13.3 g/dL (14.0-18.0); LYMPHOCYTES # (AUTO) 0.7 10^3/uL (1.5-3.5); LYMPHOCYTES % (AUTO) 7.2 %; MEAN CORPUSCULAR HEMOGLOBIN 29.6 pg (27.0-31.0); MEAN CORPUSCULAR HGB CONC 31.6 g/dL (32.0-36.0); MEAN CORPUSCULAR VOLUME 93.7 fL (80.0-94.0); MEAN PLATELET VOLUME 7.4 fL (7.4-11.4); MONOCYTES # (AUTO) 1.2 10^3/uL (0.0-1.0); MONOCYTES % (AUTO) 12.2 %; NEUTROPHILS # (AUTO) 7.4 10^3/uL (1.5-6.6); PLT - PLATELET COUNT 225 10^3/uL (130-450); RED BLOOD COUNT 4.51 10^6/uL (4.70-6.10); RED CELL DISTRIBUTION WIDTH 17.5 % (12.0-15.0); WHITE BLOOD COUNT 9.6 x10^3/uL (4.8-10.8)
[2017-09-14 06:01] LABS: MAGNESIUM 1.8 mg/dL (1.7-2.8)
[2017-09-14] MEDS: SODIUM CHLORIDE FLUSH 0.9% 10 ML SYRINGE IVP PRN (06:49)
[2017-09-14] MEDS: FUROSEMIDE 40 MG/4 ML VIAL IVP SCH ×2 (08:37→15:14)
[2017-09-14] MEDS: ALLOPURINOL 100 MG TABLET PO SCH (08:37)
[2017-09-14] MEDS: DABIGATRAN 75 MG CAPSULE PO SCH ×2 (08:37→21:15)
[2017-09-14] MEDS: LISINOPRIL 20 MG TABLET PO SCH ×2 (08:37→21:13)
[2017-09-14] MEDS: FAMOTIDINE 20 MG TABLET PO SCH (08:37)
[2017-09-14] MEDS: POLYETHYLENE GLYCOL 3350 17 GM PACKET PO SCH (08:37)
[2017-09-14] MEDS: SPIRONOLACTONE 25 MG TABLET PO SCH (08:43)
[2017-09-14] MEDS ORDERED: AMOX/CLAV 875 MG/125 MG TABLET PO SCH (09:00)
[2017-09-14] MEDS ORDERED: CARVEDILOL 12.5 MG TABLET PO SCH (09:00)
[2017-09-14] MEDS: diltiaZEM CD 120 MG CAPSULE PO SCH (11:22)
--- NOTE | 2017-09-14 13:38 | PROVIDER PROGRESS NOTE ---
Assessment/Plan - Problem List (1) Acute systolic congestive heart failure, NYHA class 4 Assessment/Plan: Pt still has PND. Weigjt down only lbs. Will increase Lasix iv dose and give at 8 am and 2 pm. Monoitor I's and O's, daily weigjht, BUN/creat, electrolytes amnd Mg. HR still excessive, which may have caused tachycardia-induced cardiomyopathy, therefore will adjust meds for better rate control. (2) Atrial fibrillation with RVR Assessment/Plan: HR still excessive, which may have caused tachycardia-induced cardiomyopathy, therefore will adjust meds for better rate contro. Continue Pradaxa, dose was reviewed and OKd with our Pharmacist Sincere. (3) Hypertension Assessment/Plan: BP still poorly controlled. Will adjust meds. monitor BUN/creat. (4) Tachy-parag syndrome Assessment/Plan: Pt has a pacemeker for backup. We have not seen a HR low enough for the pacing to kick in. (5) History of AAA (abdominal aortic aneurysm) repair Assessment/Plan: Stable (6) Sarcoidosis Assessment/Plan: Stable, presumably, since Pt was just seen by his Security Systems Administrator as an outpt before this admission, for SOB. (7) Cor pulmonale Assessment/Plan: Continue with management as in #1. (8) SANDRA (obstructive sleep apnea) Assessment/Plan: Pt has admitted he is non-compliant with a CPAP, since he needed to send it in because he was "not using it as prescribed at least 8 hours a night". This will need attention and restart after Dch. - Current Meds Current Meds: Current Medications Generic Name Dose Route Start Last Admin Trade Name Marcelle PRN Reason Stop Dose Admin Allopurinol 100 mg 09/13/17 09:00 09/14/17 08:37 Zyloprim PO 100 mg DAILY MARLO Administration Dabigatran 150 mg 09/12/17 21:00 09/14/17 08:37 Pradaxa PO 150 mg BID MARLO Administration Diltiazem HCl 120 mg 09/14/17 11:00 09/14/17 11:22 Cardizem Cd PO 120 mg DAILY MARLO Administration Famotidine 20 mg 09/13/17 09:00 09/14/17 08:37 Pepcid PO 20 mg DAILY MARLO Administration Furosemide 40 mg 09/14/17 08:30 09/14/17 08:37 Lasix Inj 40 Mg Vial IVP 40 mg 0800,1400 MARLO Administration Lisinopril 20 mg 09/12/17 21:00 09/14/17 08:37 Zestril PO 20 mg BID MARLO Administration Polyethylene Glycol 17 gm 09/13/17 09:00 09/14/17 08:37 Miralax PO Not Given DAILY MARLO Sodium Chloride 10 ml 09/12/17 15:19 09/14/17 06:49 Normal Saline Flush 0.9% IVP 10 ml PRN PRN Administration NEEDED PER PROVIDER ORDERS Sodium Chloride 10 ml 09/12/17 17:00 09/14/17 08:37 Normal Saline Flush 0.9% IVP 10 ml 0100,0900,1700 MARLO Administration Spironolactone 25 mg 09/14/17 09:00 09/14/17 08:43 Aldactone PO 25 mg DAILY MARLO Administration - Lab Result Fish Bone Diagrams: 09/14/17 05:37 09/14/17 05:37 - Additional Planning My Orders: My Active Orders 09/14/17 08:09 HYDROmorphone INJ SYRINGE [Dilaudid Inj Syringe] 0.5 mg IVP Q2H PRN 09/14/17 08:30 FUROSEMIDE INJ 40mg VIAL [LASIX INJ 40 mg VIAL] 40 mg IVP 0800,1400 09/14/17 09:00 Spironolactone [Aldactone] 25 mg PO DAILY 09/14/17 10:27 Nutrition Consult [CONS] Routine 09/14/17 11:00 [id number] CD [Cardizem Cd] 120 mg PO DAILY 09/14/17 21:00 Metoprolol Succinate [Toprol Xl] 100 mg PO BID Sulfamethox/Trimeth 800/160 [Bactrim Ds 800/160] 1 tab PO BID 09/15/17 05:00 BMP - BASIC METABOLIC PANEL [CHEM] DAILYLAB MAGNESIUM [CHEM] DAILYLAB 09/16/17 05:00 BMP - BASIC METABOLIC PANEL [CHEM] DAILYLAB MAGNESIUM [CHEM] DAILYLAB 09/17/17 05:00 MAGNESIUM [CHEM] DAILYLAB Subjective - Subjective Patient Reports: Feeling Better Objective Vital Signs: Vital Signs - 24 hr 09/13/17 09/13/17 09/13/17 15:58 21:08 21:10 Temperature 36.3 C L 36.6 C Heart Rate [ 90 90 Apical] Respiratory 22 20 Rate Blood Pressure 134/90 H Blood Pressure 123/94 H 136/86 H [Left Brachial artery] O2 Saturation 96 95 09/13/17 09/14/17 09/14/17 23:40 04:20 08:00 Temperature 36.5 C 36.6 C 36.4 C L Heart Rate [ 80 90 84 Apical] Respiratory 16 18 18 Rate Blood Pressure Blood Pressure 135/86 H 143/83 H 140/97 H [Left Brachial artery] O2 Saturation 95 94 91 L Oxygen O2 Source Nasal cannula I&O (Last 24 Hrs): Intake and Output Totals x24h 09/12/17 09/13/17 09/14/17 23:59 23:59 23:59 Intake Total 770 1400 1010 Output Total 800 2550 1460 Balance -30 -1150 -450 General: Alert, Oriented x3 HEENT: Mucous membr. moist/pink Neck: Supple, No JVD Neuro: Non Focal Cardiovascular: No murmurs Respiratory: Other (Bilat rales up 1/) Abdomen: Soft Extremities: No edema - Results Results: Laboratory Results WBC 9.6 x10^3/uL (4.8-10.8) 09/14/17 05:37 RBC 4.51 10^6/uL (4.70-6.10) L 09/14/17 05:37 Hgb 13.3 g/dL (14.0-18.0) L 09/14/17 05:37 Hct 42.3 % (42.0-52.0) 09/14/17 05:37 MCV 93.7 fL (80.0-94.0) 09/14/17 05:37 MCH 29.6 pg (27.0-31.0) 09/14/17 05:37 MCHC 31.6 g/dL (32.0-36.0) L 09/14/17 05:37 RDW 17.5 % (12.0-15.0) H 09/14/17 05:37 Plt Count 225 10^3/uL (130-450) 09/14/17 05:37 MPV 7.4 fL (7.4-11.4) 09/14/17 05:37 Neut # 7.4 10^3/uL (1.5-6.6) H 09/14/17 05:37 Lymph # 0.7 10^3/uL (1.5-3.5) L 09/14/17 05:37 [place] # 1.2 10^3/uL (0.0-1.0) H 09/14/17 05:37 Eos # 0.2 10^3/uL (0.0-0.7) 09/14/17 05:37 Baso # 0.1 10^3/uL (0.0-0.1) 09/14/17 05:37 Absolute Nucleated RBC 0.01 x10^3/uL 09/14/17 05:37 Nucleated RBC % 0.1 /100WBC 09/14/17 05:37 Sodium 139 mmol/L (135-145) 09/14/17 05:37 Potassium 3.8 mmol/L (3.5-5.0) 09/14/17 05:37 Chloride 99 mmol/L (101-111) L 09/14/17 05:37 Carbon Dioxide 35 mmol/L (21-32) H 09/14/17 05:37 Anion Gap 5.0 (6-13) L 09/14/17 05:37 BUN 26 mg/dL (6-20) H 09/14/17 05:37 Creatinine 1.0 mg/dL (0.6-1.2) 09/14/17 05:37 Estimated GFR (MDRD) 75 (>89) L 09/14/17 05:37 Glucose 102 mg/dL (70-100) H 09/14/17 05:37 Calcium 9.0 mg/dL (8.5-10.3) 09/14/17 05:37 Magnesium 1.8 mg/dL (1.7-2.8) 09/14/17 05:37 Total Bilirubin 1.1 mg/dL (0.2-1.0) H 09/12/17 11:09 AST 23 IU/L (10-42) 09/12/17 11:09 ALT 14 IU/L (10-60) 09/12/17 11:09 Alkaline Phosphatase 85 IU/L (42-121) 09/12/17 11:09 Troponin I 0.08 ng/mL (<0.49) 09/13/17 00:57 B-Natriuretic Peptide 967 pg/mL (5-100) H 09/13/17 06:19 Total Protein 7.3 g/dL (6.7-8.2) 09/12/17 11:09 Albumin 3.8 g/dL (3.2-5.5) 09/12/17 11:09 Globulin 3.5 g/dL (2.1-4.2) 09/12/17 11:09 Albumin/Globulin Ratio 1.1 (1.0-2.2) 09/12/17 11:09 Lipase 51 U/L (22-51) 09/12/17 11:09 Urine Color YELLOW 09/12/17 11:45 Urine Clarity CLEAR (CLEAR) 09/12/17 11:45 Urine pH 5.0 PH (5.0-7.5) 09/12/17 11:45 Ur Specific [place] 1.025 (1.002-1.030) 09/12/17 11:45 Urine Protein 100 mg/dL (NEGATIVE) H 09/12/17 11:45 Urine Glucose (UA) NEGATIVE mg/dL (NEGATIVE) 09/12/17 11:45 Urine Ketones NEGATIVE mg/dL (NEGATIVE) 09/12/17 11:45 Urine Occult Blood TRACE-LYSE (NEGATIVE) 09/12/17 11:45 Urine Nitrite POSITIVE (NEGATIVE) H 09/12/17 11:45 Urine Bilirubin NEGATIVE (NEGATIVE) 09/12/17 11:45 Urine Urobilinogen 1 (NORMAL) E.U./dL (NORMAL) 09/12/17 11:45 Ur Leukocyte Esterase TRACE (NEGATIVE) H 09/12/17 11:45 Urine RBC 0-5 /HPF (0-5) 09/12/17 11:45 Urine WBC 6-10 /HPF (0-3) H 09/12/17 11:45 Ur Squamous Epith Cells NONE SEEN (<= Few) 09/12/17 11:45 Urine Bacteria Few /HPF (None Seen) 09/12/17 11:45 Urine Casts 0-2 Hyaline Casts /LPF 09/12/17 11:45 Urine Mucus Few Strands 09/12/17 11:45 Ur Microscopic Review INDICATED 09/12/17 11:45 Urine Culture Comments INDICATED 09/12/17 11:45
[2017-09-14] MEDS: SULFAMETH/TRIMETH DS 800/160 MG TABLET PO SCH (21:16)
[2017-09-14] MEDS: METOPROLOL SUCCINATE 50 MG TABLET PO SCH (21:16)
[2017-09-15 05:38] LABS: CALCIUM 9.1 mg/dL (8.5-10.3); CREATININE 0.8 mg/dL (0.6-1.2); MAGNESIUM 1.9 mg/dL (1.7-2.8)
[2017-09-15] MEDS: SODIUM CHLORIDE FLUSH 0.9% 10 ML SYRINGE IVP SCH ×3 (07:31→17:11)
[2017-09-15] MEDS: FAMOTIDINE 20 MG TABLET PO SCH (08:16)
[2017-09-15] MEDS: DABIGATRAN 75 MG CAPSULE PO SCH ×2 (08:16→21:34)
[2017-09-15] MEDS: diltiaZEM CD 120 MG CAPSULE PO SCH (08:17)
[2017-09-15] MEDS: ALLOPURINOL 100 MG TABLET PO SCH (08:17)
[2017-09-15] MEDS: SPIRONOLACTONE 25 MG TABLET PO SCH (08:17)
[2017-09-15] MEDS: METOPROLOL SUCCINATE 50 MG TABLET PO SCH ×2 (08:17→21:34)
[2017-09-15] MEDS: LISINOPRIL 20 MG TABLET PO SCH ×2 (08:17→21:35)
[2017-09-15] MEDS: SULFAMETH/TRIMETH DS 800/160 MG TABLET PO SCH ×2 (08:17→21:35)
[2017-09-15] MEDS: POLYETHYLENE GLYCOL 3350 17 GM PACKET PO SCH (08:22)
[2017-09-15] MEDS: FUROSEMIDE 40 MG/4 ML VIAL IVP SCH ×2 (10:36→14:18)
[2017-09-15] MEDS: ACETAMINOPHEN 325 MG TABLET PO PRN (11:18)
[2017-09-15] MEDS ORDERED: NAPROXEN 250 MG TABLET PO PRN (12:38)
--- NOTE | 2017-09-15 12:41 | PROVIDER PROGRESS NOTE ---
Subjective - Prog Note Date Prog Note Date: 09/15/17 Prog Note Time: 12:40 - Subjective Subjective: 1. CHF. For his sob he is not at baseline. he is much improved since admit but still hernandez with getting up to go to bathroom. at home he isn't he states. denies cp, palpitations. 2. Ankle and toe pain. Got up to urinate last night and stubbed in little toe on left foot and hit ankle. now red, hot, hurts to weight bear on ankle. Current Medications - Current Medications Current Medications: Active Medications Acetaminophen (Tylenol) 650 mg PO Q4HR PRN PRN Reason: Pain or Fever > 38C (100.4F) Last Admin: 09/15/17 11:18 Dose: 650 mg Allopurinol (Zyloprim) 100 mg PO DAILY [facility] Last Admin: 09/15/17 08:17 Dose: 100 mg Celecoxib (Celebrex) 100 mg PO BID [facility] Dabigatran (Pradaxa) 150 mg PO BID [facility] Last Admin: 09/15/17 08:16 Dose: 150 mg Diltiazem HCl (Cardizem Cd) 120 mg PO DAILY [facility] Last Admin: 09/15/17 08:17 Dose: 120 mg Famotidine (Pepcid) 20 mg PO DAILY [facility] Last Admin: 09/15/17 08:16 Dose: 20 mg Furosemide (Lasix Inj 40 Mg Vial) 40 mg IVP 0800,1400 [facility] Last Admin: 09/15/17 10:36 Dose: 40 mg Hydromorphone HCl (Dilaudid Inj Syringe) 0.5 mg IVP Q2H PRN PRN Reason: Dyspnea Lisinopril (Zestril) 20 mg PO BID [facility] Last Admin: 09/15/17 08:17 Dose: 20 mg Metoprolol Succinate (Toprol Xl) 100 mg PO BID [facility] Last Admin: 09/15/17 08:17 Dose: 100 mg Naproxen (Naprosyn) 250 mg PO TID PRN PRN Reason: PAIN Polyethylene Glycol (Miralax) 17 gm PO DAILY [facility] Last Admin: 09/15/17 08:22 Dose: Not Given Prochlorperazine Edisylate (Compazine Inj) 10 mg IVP Q6HR PRN PRN Reason: Nausea / Vomiting Sodium Chloride (Normal Saline Flush 0.9%) 10 ml IVP PRN PRN PRN Reason: NEEDED PER PROVIDER ORDERS Last Admin: 09/14/17 06:49 Dose: 10 ml Sodium Chloride (Normal Saline Flush 0.9%) 10 ml IVP 0100,0900,1700 [facility] Last Admin: 09/15/17 10:36 Dose: 10 ml Spironolactone (Aldactone) 25 mg PO DAILY [facility] Last Admin: 09/15/17 08:17 Dose: 25 mg Temazepam (Restoril) 15 mg PO QPM PRN PRN Reason: Insomnia Trimethoprim/Sulfamethoxazole (Bactrim Ds 800/160) 1 tab PO BID [facility] Last Admin: 09/15/17 08:17 Dose: 1 tab Sotalol [Betapace] 80 mg PO BID 04/24/14 Allopurinol [Zyloprim] 100 mg PO DAILY 09/12/17 Amlodipine Besylate [Norvasc] 10 mg PO DAILY 09/12/17 Dabigatran Etexilate Mesylate [Pradaxa] 150 mg PO BID 09/12/17 Lisinopril [Zestril] 20 mg PO BID 09/12/17 Objective - Vital Signs/Intake & Output Reviewed Vital Signs: Yes Vital Signs: Vital Signs x48h Temp Pulse Resp BP Pulse Ox 09/15/17 07:49 36.5 C 88 16 129/85 H 95 09/15/17 05:00 36.5 C 77 16 127/67 95 Intake & Output: Intake & Output 09/12/17 09/13/17 09/14/17 09/15/17 23:59 23:59 23:59 23:59 Intake Total 770 1400 1570 356 Output Total 800 2550 3560 1675 Balance -30 -1150 -1990 -1319 - Objective General Appearance: positive: No acute distress, Alert, Other (tall alert white male looks older than stated age, sitting up in chair, comfortable) Eyes Bilateral: positive: PERRL ENT: positive: Pharynx nml Neck: positive: No JVD, Carotid bruit. negative: Stiff neck Respiratory: positive: No respiratory distress, Rales (at bases.), Other (very poor air sounds diffusely) Cardiovascular: positive: Irregularly irregular, Systolic murmur. negative: JVD present, Gallop/S4, Friction rub Abdomen: positive: Non-tender, No organomegaly, Nml bowel sounds, No distention Skin: positive: Warm, Dry Extremities: positive: Full ROM (except for his left ankle, pain with inversion along medial malleoli, warm to touch, left 5th toe is swollen), Pedal edema ( with reddened shins, ankles, slightly warm to touch) Neurologic/Psychiatric: positive: Oriented x3, CN's nml (2-12), Motor nml - Lab Results Fish Bones: 09/14/17 05:37 09/15/17 05:05 Other Labs: Lab Results x24hrs 09/15/17 Range/Units 05:05 Sodium 142 (135-145) mmol/L Potassium 4.0 (3.5-5.0) mmol/L Chloride 101 (101-111) mmol/L Carbon Dioxide 36 H (21-32) mmol/L Anion Gap 5.0 L (6-13) BUN 24 H (6-20) mg/dL Creatinine 0.8 (0.6-1.2) mg/dL Estimated GFR (MDRD) 98 (>89) Glucose 119 H (70-100) mg/dL Calcium 9.1 (8.5-10.3) mg/dL Magnesium 1.9 (1.7-2.8) mg/dL ABX Reporting Has patient been on IV antibiotics over the past 48 hours?: No Assessment/Plan - Problem List (1) Left ankle injury Impression: he states it was from getting up last night and hitting his toes and his ankle. hurts to weight bear and to invert. check films I tried to use toradol, naprosyn, or celebrex but all are contraindicated bc of his pradaxa. So will use tylenol and dilaudid prn. Qualifiers: Encounter type: initial encounter Qualified Code(s): S99.912A - Unspecified injury of left ankle, initial encounter (2) Acute systolic congestive heart failure, NYHA class 4 Impression: Pt still has PND. Weight was 117 on admit and he's 121 today even though his I/ O have been consistently negative since admit. On increased Lasix iv dose and given at 8 am and 2 pm. Monoitor I's and O's, daily weigjht, BUN/creat, electrolytes and Mg. HR was excessive, which may have caused tachycardia-induced cardiomyopathy, therefore meds adjusted for better rate control. ECHO shows he has deteriorated with his LVEF. His EF is 35%, severely dilated LA , reduced EF of dilated RV and his severe TR. Aorta is up to 4 cm. His IV has infiltrated but will need new one since I do want more IV lasix until he is baseline. Anticipate 1-2 more days of diuresis Check BNP in am. (3) Atrial fibrillation with RVR Assessment/Plan: HR was excessive, which may have caused tachycardia-induced cardiomyopathy, therefore meds adjusted for better rate control. He was on sotalol in the outpatient setting and that was switched to metoprolol bid. Then on 09/14 cardizem 120 mg added. Continue Pradaxa, dose was reviewed and OKd with our Pharmacist Sincere. His pulse has been in 70's to 80's since yesterday so currently controlled. (4) Hypertension Assessment/Plan: controlled BP has been 115-129 systolic since yesterday's adjustment. monitor BUN/creat. (5) Tachy-parag syndrome Assessment/Plan: Pt has a pacemeker for backup. We have not seen a HR low enough for the pacing to kick in. (6) History of AAA (abdominal aortic aneurysm) repair Assessment/Plan: Stable (7) Sarcoidosis Assessment/Plan: Stable, presumably, since Pt was just seen by his Capability Lead, Dr. Mynor Rai from the [facility], as an outpt before this admission, for SOB. (8) Cor pulmonale Assessment/Plan: Continue with management as in #1. (9) SANDRA (obstructive sleep apnea) Assessment/Plan: Pt has admitted he is non-compliant with a CPAP, since he needed to send it in because he was "not using it as prescribed at least 8 hours a night". This will need attention and restart after [facility].
[2017-09-15] MEDS: HYDROmorphone 0.5 MG/0.5 ML SYRINGE IVP PRN ×2 (12:52→17:11)
[2017-09-15] MEDS: SODIUM CHLORIDE FLUSH 0.9% 10 ML SYRINGE IVP PRN ×3 (12:53→17:11)
[2017-09-15] MEDS ORDERED: CELECOXIB 100 MG CAPSULE PO SCH (13:00)
--- NOTE | 2017-09-15 14:20 | XRAY Report ---
TWO VIEW LEFT FOOT: 09/15/2017 CLINICAL INDICATION: Trauma, pain. FINDINGS: Frontal and lateral views of the left foot demonstrate osteoarthritis. There is no evidence of fracture or dislocation. Soft tissue swelling is present. No foreign body is seen in the soft tissues. IMPRESSION: OSTEOARTHRITIS. TD: 09/15/2017 13:49
--- NOTE | 2017-09-15 14:21 | XRAY Report ---
TWO VIEW LEFT ANKLE: 09/15/2017 CLINICAL INDICATION: Trauma pain. FINDINGS: Frontal and lateral views of the left ankle demonstrate no evidence of acute fracture or dislocation. Degenerative changes are present, with plantar and posterior calcaneal spurring. Soft tissue swelling is present. No foreign body is seen. IMPRESSION: DEGENERATIVE CHANGES. NO EVIDENCE OF ACUTE FRACTURE. TD: 09/15/2017 13:51
[2017-09-16] MEDS: SODIUM CHLORIDE FLUSH 0.9% 10 ML SYRINGE IVP SCH ×3 (01:29→21:11)
[2017-09-16 06:05] LABS: CALCIUM 9.2 mg/dL (8.5-10.3); CREATININE 0.9 mg/dL (0.6-1.2); MAGNESIUM 1.9 mg/dL (1.7-2.8)
[2017-09-16] MEDS: ACETAMINOPHEN 325 MG TABLET PO PRN (06:07)
[2017-09-16] MEDS: HYDROmorphone 0.5 MG/0.5 ML SYRINGE IVP PRN ×2 (07:55→21:19)
[2017-09-16] MEDS: SODIUM CHLORIDE FLUSH 0.9% 10 ML SYRINGE IVP PRN ×2 (07:56→15:05)
[2017-09-16] MEDS: LISINOPRIL 20 MG TABLET PO SCH ×2 (07:59→21:11)
[2017-09-16] MEDS: ALLOPURINOL 100 MG TABLET PO SCH (07:59)
[2017-09-16] MEDS: diltiaZEM CD 120 MG CAPSULE PO SCH (07:59)
[2017-09-16] MEDS: SPIRONOLACTONE 25 MG TABLET PO SCH (07:59)
[2017-09-16] MEDS: DABIGATRAN 75 MG CAPSULE PO SCH ×2 (07:59→21:11)
[2017-09-16] MEDS: SULFAMETH/TRIMETH DS 800/160 MG TABLET PO SCH ×2 (07:59→21:11)
[2017-09-16] MEDS: METOPROLOL SUCCINATE 50 MG TABLET PO SCH ×2 (08:00→21:11)
[2017-09-16] MEDS: POLYETHYLENE GLYCOL 3350 17 GM PACKET PO SCH (08:00)
[2017-09-16] MEDS: FAMOTIDINE 20 MG TABLET PO SCH (08:00)
[2017-09-16] MEDS: FUROSEMIDE 40 MG/4 ML VIAL IVP SCH ×2 (08:00→15:05)
--- NOTE | 2017-09-16 10:23 | PROVIDER PROGRESS NOTE ---
Subjective - Prog Note Date Prog Note Date: 09/16/17 Prog Note Time: 10:20 - Subjective Pt reports feeling: No change Subjective: his ankle pain and toe pain are better. No new injuries. Walking in room w aid of a cane. Goes to BR. Prefers to sit up in chair bc of mild PND now. Overall not much change in CAMPOS or edema from yesterday but overall this admission has helped quite a bit. Denies cp, cough, phlegm. No GI problems. Current Medications - Current Medications Current Medications: Active Medications Acetaminophen (Tylenol) 650 mg PO Q4HR PRN PRN Reason: Pain or Fever > 38C (100.4F) Last Admin: 09/16/17 06:07 Dose: 650 mg Allopurinol (Zyloprim) 100 mg PO DAILY [facility] Last Admin: 09/16/17 07:59 Dose: 100 mg Dabigatran (Pradaxa) 150 mg PO BID [facility] Last Admin: 09/16/17 07:59 Dose: 150 mg Diltiazem HCl (Cardizem Cd) 120 mg PO DAILY [facility] Last Admin: 09/16/17 07:59 Dose: 120 mg Famotidine (Pepcid) 20 mg PO DAILY [facility] Last Admin: 09/16/17 08:00 Dose: 20 mg Furosemide (Lasix Inj 40 Mg Vial) 40 mg IVP 0800,1400 [facility] Last Admin: 09/16/17 08:00 Dose: 40 mg Hydromorphone HCl (Dilaudid Inj Syringe) 0.5 mg IVP Q2H PRN PRN Reason: Dyspnea Last Admin: 09/16/17 07:55 Dose: 0.5 mg Lisinopril (Zestril) 20 mg PO BID [facility] Last Admin: 09/16/17 07:59 Dose: 20 mg Metoprolol Succinate (Toprol Xl) 100 mg PO BID [facility] Last Admin: 09/16/17 08:00 Dose: 100 mg Polyethylene Glycol (Miralax) 17 gm PO DAILY [facility] Last Admin: 09/16/17 08:00 Dose: Not Given Prochlorperazine Edisylate (Compazine Inj) 10 mg IVP Q6HR PRN PRN Reason: Nausea / Vomiting Sodium Chloride (Normal Saline Flush 0.9%) 10 ml IVP PRN PRN PRN Reason: NEEDED PER PROVIDER ORDERS Last Admin: 09/16/17 07:56 Dose: 10 ml Sodium Chloride (Normal Saline Flush 0.9%) 10 ml IVP 0100,0900,1700 [facility] Last Admin: 09/16/17 08:01 Dose: 10 ml Spironolactone (Aldactone) 25 mg PO DAILY [facility] Last Admin: 09/16/17 07:59 Dose: 25 mg Temazepam (Restoril) 15 mg PO QPM PRN PRN Reason: Insomnia Trimethoprim/Sulfamethoxazole (Bactrim Ds 800/160) 1 tab PO BID [facility] Last Admin: 09/16/17 07:59 Dose: 1 tab Sotalol [Betapace] 80 mg PO BID 04/24/14 Allopurinol [Zyloprim] 100 mg PO DAILY 09/12/17 Amlodipine Besylate [Norvasc] 10 mg PO DAILY 09/12/17 Dabigatran Etexilate Mesylate [Pradaxa] 150 mg PO BID 09/12/17 Lisinopril [Zestril] 20 mg PO BID 09/12/17 Objective - Vital Signs/Intake & Output Reviewed Vital Signs: Yes Vital Signs: Vital Signs x48h Temp Pulse Resp BP BP Pulse Ox 09/16/17 08:19 75 91 L 09/16/17 07:20 36.4 C L 90 18 122/84 H 92 09/16/17 03:00 36.7 C 85 18 111/74 95 Intake & Output: Intake & Output 09/13/17 09/14/17 09/15/17 09/16/17 23:59 23:59 23:59 23:59 Intake Total 1400 1570 1246 360 Output Total 2550 3560 3150 650 Balance -1150 -1990 -1904 -290 - Objective General Appearance: positive: No acute distress, Alert, Other (middle aged white male who looks older than stated age, sitting up in chair. Has already eaten breakfast. Comfortable.) Eyes Bilateral: positive: PERRL ENT: positive: Pharynx nml, Other (bad teeth) Neck: positive: No JVD. negative: Stiff neck, Carotid bruit Respiratory: positive: Chest non-tender, Rales (still at bases, no change), Other (overall quiet lungs with poor heard air movement diffusely). negative: Wheezes (but has prolonged end exhalation), Rhonchi Cardiovascular: positive: Irregularly irregular, Systolic murmur. negative: Gallop/S3, Gallop/S4, Friction rub Abdomen: positive: Non-tender, No organomegaly, Nml bowel sounds, No distention Back: positive: Other Extremities: positive: Pedal edema (mild with redness of shins and ankles without change from yesterday) Neurologic/Psychiatric: positive: Oriented x3, CN's nml (2-12), Motor nml, Other (is using a cane to ambulate . cane if from home. does limp a little off of left ankle) - Lab Results Fish Bones: 09/14/17 05:37 09/16/17 05:30 Other Labs: Lab Results x24hrs 09/16/17 Range/Units 05:30 Sodium 136 (135-145) mmol/L Potassium 4.1 (3.5-5.0) mmol/L Chloride 97 L (101-111) mmol/L Carbon Dioxide 34 H (21-32) mmol/L Anion Gap 5.0 L (6-13) BUN 25 H (6-20) mg/dL Creatinine 0.9 (0.6-1.2) mg/dL Estimated GFR (MDRD) 85 L (>89) Glucose 101 H (70-100) mg/dL Calcium 9.2 (8.5-10.3) mg/dL Magnesium 1.9 (1.7-2.8) mg/dL ABX Reporting Has patient been on IV antibiotics over the past 48 hours?: No Assessment/Plan - Problem List (1) Acute systolic congestive heart failure, NYHA class 4 Impression: Pt still has PND and prefers to sit not lay down. Weight was 117 on admit, 121 yesterday and 118.5 today. I/O have been consistently negative since admit. On increased Lasix iv dose and given at 8 am and 2 pm. Monoitor I's and O's, daily weigjht, BUN/creat, electrolytes and Mg. HR was excessive, which may have caused tachycardia-induced cardiomyopathy, therefore meds adjusted for better rate control. ECHO shows he has deteriorated with his LVEF. His EF is 35%, severely dilated LA , reduced EF of dilated RV and his severe TR. Aorta is up to 4 cm. His IV had infiltratedyesterday and needed new one since I do want more IV lasix until he is baseline. Anticipate 1 more days of diuresis. Still has crackles at bases. BNP not ordered today for am, so will order for afternoon. See Advanced Care Planning conversation under separate note. (2) Atrial fibrillation with RVR Assessment/Plan: HR was excessive, which may have caused tachycardia-induced cardiomyopathy, therefore meds adjusted for better rate control. He was on sotalol in the outpatient setting and that was switched to metoprolol bid. Then on 09/14 cardizem 120 mg added. Continue Pradaxa, dose was reviewed and OKd with our Pharmacist Sincere. His pulse has been in 70's to 80's since 09/14 so currently controlled. (3) Hypertension Assessment/Plan: controlled BP has been 115-129 systolic once meds changed and has been 90-122 systolic today. monitor BUN/creat. (4) Tachy-parag syndrome Assessment/Plan: Pt has a pacemeker for backup. We have not seen a HR low enough for the pacing to kick in. (5) History of AAA (abdominal aortic aneurysm) repair Assessment/Plan: Stable (6) Sarcoidosis Assessment/Plan: Stable, presumably, since Pt was just seen by his [employer] Social Worker, Dr. Mynor Rai from the [facility], as an outpt before this admission, for SOB. (7) Cor pulmonale Assessment/Plan: Continue with management as in #1. (8) SANDRA (obstructive sleep apnea) Assessment/Plan: Pt has admitted he is non-compliant with a CPAP, since he needed to send it in because he was "not using it as prescribed at least 8 hours a night". This will need attention and restart after [facility]. (9) Left ankle injury Impression: he states it was from getting up the night of 09/14 and hitting his toes and his ankle. hurts to weight bear and to invert. Films show only OA and no fracture. Less pain today. Able to ambulate without assists of a DME. Uses a cane at home anyway. I tried to use toradol, naprosyn, or celebrex but all are contraindicated bc of his pradaxa. So will use tylenol and dilaudid prn. Qualifiers: Encounter type: initial encounter Qualified Code(s): S99.912A - Unspecified injury of left ankle, initial encounter (10) UTI with E coli. E coli is resistant to quinolone so he's on Bactrim for closest tissue penetration we can get. Plan for 21-30 days of treatment in a male. Day #3 today.
--- NOTE | 2017-09-16 11:26 | ADVANCE CARE PLANNING NOTE ---
Advance Care Planning - Date/Time Date: 09/16/17 Time: 11:21 - Purpose of encounter Text: Explore his understanding of his disease and plans for the future. - Parties in attendance Parties in attendance: Hospitalist and patient. - Decisional capacity Decisional capacity of: patient is intact. Alert, oriented, lucid historian. - Subjective/Patient's story Subjective/Patient's story: He is a gentleman that used to live between [place] and [facility]. He traveled back and forth between the 2 states. He used his parents basement is a storage facility to keep things here while he was in [place]. He has lost his . [place]. He describes himself as a wanderer. He actually will sometimes live out of his van because he likes the freedom. He was hospitalized for pneumonia in the past, and was found to have sarcoidosis. He does see a pharmaceutical engineer. He started having problems with near syncope and underwent a pacemaker implant 4 years ago for tachybradycardia syndrome. He has high blood pressure. He was told that he had congestive heart failure but not Y. He does not remember having a heart attack. He does not understand what happened, but he lost his bottles of medications and went to get them refilled. However they needed an override because it was an early refill. The authorization from his job recruiter had not come through in time. He was without his medicines for 3-4 days and he went into congestive heart failure. This admissions ECHO shows his EF to have deteriorated from his previous EF. His life is very sedentary. Because of chronic dyspnea on exertion the most he can walk is 2-3 blocks walking very slowly, using a cane. He is still able to complete his activities of daily living with regards to self-care, eating, driving. He lives in the basement of his parents house. He rarely gets out. Is taking longer and longer for him to climb that single flight of stairs into the main house. He sometimes uses the garage door exit which takes him outside , but then he still has to climb a slight hill to get back into his parents house. He does go out to [employer]. Has to rely on the cart to lean on to be able to finish the shopping excursion. That is getting harder and harder to do. He is in contact with both of his kids. 1 of them just got . He describes them in terms of a loving, intact relationship. He just does not see [place] very often [place] - Objective/Medical story Objective/Medical Story: Past medical history of hypertension, tachybradycardia syndrome with an implant 4 years ago, sarcoidosis, and pneumonia. He is an ex-smoker who quit 5-10 years ago. Drinks beer socially. Ran out of his medications and progressed to orthopnea, pedal edema, dyspnea on exertion. Now admitted for acute on chronic systolic congestive heart failure. He has been gradually improving during the stay with weight going from 121 kg to 118 kg. Intake and output has been consistently negative for 4 days. Baseline exam still has crackles at the lung bases. But it is much improved from his admission exam where he had crackles throughout all lung oconnor with increasing respiratory effort even at rest. He is not able to sit upright, eat his breakfast, speak in a normal hoa without dyspnea on exertion. This admission's echocardiogram shows reduction in his ejection fraction from 65% down to 35%. - Goals of Care Goals of care determinations: He has not thought much about the future. While he recognizes that his lifestyle is getting increasingly restricted because of his inability to ambulate, he has not thought about the end game of what will happen when he can no longer take care of himself. Because this is a new question I imposing to him, he really cannot formulate an answer with regards to his plans. Options that I have mentioned to him include staying with his parents, and hiring somebody to take care of him if his parents cannot. A second option is moving into an assisted living facility. A third option is going from an assisted living facility to a intermediate facility. A fourth option is moving to the [id number] and living with his children or living near his children. All of these suggestions are in the assumption that he will continue to deteriorate with regards to cardiac status. I explained that sometimes people just get slower, slower, and finally just cannot get out of bed without assist. I do not know when that would happen to him. It could be 2 [address] down the road, 3 [address] or even [address]. Right now his goal is to remain as independent as possible. To continue his current lifestyle of leaving his parents house when he wants to to travel in his van. Although he recognizes that is happening less and less in the last year. With this in mind, he still wishes to be a full code. - Plan Plan: POLST form will be filled out To start exploring with his parents and his children's what their ideas are about his inevitable aging and deterioration Discussed this decision with his parents, children, and his primary care provider, ERVIN Ortiz Plan a visit with his job recruiter to make sure his job recruiter knows about the increasingly reduced ejection fraction and to make sure he is getting the appropriate workup in the outpatient setting Make sure his medications always remain up-to-date so that he can avoid hospitalizations because of not taking them - Code Status Code Status: Attempt Resuscitation - Time Spent on Advance Care Planning Time spent on advance care plannin minutes.
[2017-09-17] MEDS: ACETAMINOPHEN 325 MG TABLET PO PRN (00:25)
[2017-09-17] MEDS: SODIUM CHLORIDE FLUSH 0.9% 10 ML SYRINGE IVP SCH ×2 (00:26→11:09)
[2017-09-17] MEDS: FUROSEMIDE 40 MG/4 ML VIAL IVP SCH (09:16)
[2017-09-17] MEDS: ALLOPURINOL 100 MG TABLET PO SCH (09:20)
[2017-09-17] MEDS: SPIRONOLACTONE 25 MG TABLET PO SCH (09:21)
[2017-09-17] MEDS: SULFAMETH/TRIMETH DS 800/160 MG TABLET PO SCH (09:22)
[2017-09-17] MEDS: FAMOTIDINE 20 MG TABLET PO SCH (09:22)
--- NOTE | 2017-09-17 09:24 | Discharge Plan ---
Discharge Plan Disposition: 01 Home, Self Care Condition: Fair Prescriptions: Furosemide [Lasix] 20 mg PO BID #60 tablet Spironolactone [Aldactone] 25 mg PO DAILY #30 tablet Sulfamethox/Trimeth 800/160 [Bactrim Ds] 1 tab PO BID #32 tablet Diet: Cardiac Activity Restrictions: Activity as Tolerated Shower Restrictions: No Driving Restrictions: No Additional Instructions or Follow Up instructions: You were admitted to the hospital because you had lost your medications and were not able to take them for a few days. This resulted in acute congestive heart failure. We aggressively diuresed (or made you urinate a lot) you with IV Lasix and oral Spironolactone. While here, we repeated your echocardiogram and compared it to your previous echocardiogram. Your ejection fraction, the amount your heart pumps forward, has been reduced since the last time you were checked. You're now pumping it about 35%. The other thing we found you to have was a urinary tract infection. A urinary tract infection in males is different than females. Because you have a prostate , you will need antibiotic therapy for up to 3 weeks. Please see your enamel machine operator, Dr. Evangelista, from the [facility] in follow- up. I have called his office and you have an appointment on September 24. It is a 1: 05 PM check-in for a 1:20 PM appointment. Make sure that Dr. Evangelista checks your potassium. Much of your medication will interact to give you a high potassium if we do not keep an eye on it. He can also review your new echocardiogram results to see if anything else needs to be done to assess your heart. This should be straightforward for him since it is his group that reads the echocardiograms from [facility]. I would also like you to see your primary care provider, Lindsey Pantoja, in follow-up in the next 2-3 weeks to make sure she is having adequate continuity of your care. I have also referred you to the medical ambulatory clinic for congestive heart failure classes. Follow-Up Care: [facility] - CHF Classes No Smoking: If you smoke, Please STOP! Call for help. Follow-up with: Lindsey Pantoja ARNP [Primary Care Provider] -
[2017-09-17] MEDS: DABIGATRAN 75 MG CAPSULE PO SCH (09:25)
[2017-09-17] MEDS: METOPROLOL SUCCINATE 50 MG TABLET PO SCH (09:26)
[2017-09-17] MEDS: LISINOPRIL 20 MG TABLET PO SCH (09:27)
[2017-09-17] MEDS: diltiaZEM CD 120 MG CAPSULE PO SCH (09:27)
[2017-09-17] MEDS ORDERED: FUROSEMIDE 40 MG TABLET PO SCH (10:15)
[2017-09-17] MEDS: POLYETHYLENE GLYCOL 3350 17 GM PACKET PO SCH (11:09)
[2017-09-17 12:13] VITALS: BP 109/80
--- NOTE | 2017-09-21 12:43 | DISCHARGE SUMMARY ---
Physician: Leatha Mccullough MD DATE OF ADMISSION: 09/12/2017 DATE OF DISCHARGE: 09/17/2017 DISCHARGE DIAGNOSES 1. Acute systolic congestive heart failure, [place] Heart Association class IV. 2. Atrial fibrillation with rapid ventricular response. 3. Hypertension. 4. Tachybrady syndrome. 5. History of abdominal aortic aneurysm repair. 6. Sarcoidosis. 7. Cor pulmonale. 8. Obstructive sleep apnea. 9. Left ankle injury. 10. Urinary tract infection with Escherichia coli. DISCHARGE MEDICATIONS 1. Allopurinol 100 mg daily. 2. Norvasc 10 mg daily. 3. Pradaxa 150 mg p.o. b.i.d. 4. Zestril 20 mg p.o. daily. 5. Sotalol 80 mg p.o. b.i.d. 6. New prescription for Lasix 20 mg p.o. b.i.d. 7. New prescription for spironolactone 25 mg p.o. daily. 8. New prescription for Bactrim double strength 1 p.o. b.i.d., #32. PRINCIPAL PROCEDURES 1. Chest x-ray on admission showing moderate right pleural effusion, small left pleural effusion. Moderate diffuse interstitial abnormalities throughout both lungs with bilateral perihilar fullness, similar to exam 10/08/2016. 2. Abdomen and pelvis CT shows moderate right pleural effusion, left small pleural effusion. Patchy consolidation of the lingula. Small ground-glass nodular opacity in the right middle lobe, most likely infectious/inflammatory. Subsegmental bilateral lower lobe atelectasis. Mild ground-glass attenuation in the lower lungs bilaterally compatible with edema versus infiltrate. No hydronephrosis. No hydroureter. A small nonobstructing calculus in the mid pole of the right kidney. A 22 mm left adrenal nodule. A contracted gallbladder with calcified gallstone. No secondary signs of inflammation. Status post aortoiliac endovascular stent graft repair of abdominal aortic aneurysm. The aneurysm sac measures approximately 55 mm transverse. 3. Echocardiogram, which was compared to 04/2014 echocardiogram. Current echocardiogram has mild left ventricular enlargement. Moderately impaired ejection fraction of 35% to 40%. As compared to the previous echo, there is significant change from the 65% reported previously. Diastole and subtle regional wall motion abnormality, difficult to assess in the presence of arrhythmia. Severe left atrial enlargement. Moderately dilated right ventricle with mildly reduced function. Moderate tricuspid regurgitation. Pulmonary artery systolic pressure is 47 mmHg. Mildly dilated ascending aorta at 4 cm. 4. Blood cultures negative after 5 days. 5. Urine culture positive for E coli. 6. Stool fecal occult blood positive. HOSPITAL COURSE: The patient is a 62-year-old white male who has a history of hypertension, tachybrady syndrome requiring a pacemaker 4 years ago, and a history of recurrent pneumonia that led to a diagnosis of sarcoidosis. He is followed by Cardiology and Pulmonology. He sees his software specialist once a year, at which time he gets his pacemaker checked. Last time he saw Cardiology was about a year ago. Unfortunately, he lost his prescriptions. He could not find them and asked for refills. In getting authorizations and overrides, because he was getting prescriptions early, he was without his medicines for 3 to 4 days. He is adamant that he had no complaints up until then. In that 3 to 4 days, he developed leg edema, dyspnea on exertion, orthopnea, and a fast heart rate. He keeps a half gallon of water by his bedside to "flush out his body," and was drinking copious amounts of water. He denied chest pain, fevers, chills. He denied any abdominal complaints. He denied urgency, frequency, dysuria. He came to the emergency room and was evaluated by Dr. Garibay. Dr. Garibay also obtained a history of cough and chest pain in addition to the above problems. His temperature was 35.6, heart rate was 110, respirations 20, blood pressure 146/98. He is 90% saturated on room air. Dr. Garibay found him to be in atrial fibrillation with rapid ventricular response, no respiratory distress, but he had diminished breath sounds with rales at the bases, trace edema bilaterally that was pitting to the mid calf. He did not comment on any JVD. HOSPITAL COURSE He was admitted by the hospitalist who felt that the patient was in significant congestive heart failure with crackles all the way up. A repeat echocardiogram showed 4 chamber enlargement with severe global LV hypokinesis and a left ventricular ejection fraction that was significantly diminished from previous echoes. 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 The patient could not feel his AFib. He was aggressively diuresed with Lasix, spironolactone added. His sotalol was not on formulary and he was changed to metoprolol. He was continued on his Pradaxa. For a short time, Cardizem was used to control his rate. On abdominal examination, his aneurysm repair appeared stable. Sarcoidosis was not being manifested as sweats, fever or weight loss. He was now felt to have a new diagnosis of acute right-sided heart failure, considering the echo and cor pulmonale on exam. He was being noncompliant with his CPAP for the last 2 or 3 years and that may be adding to his atrial fibrillation. With the slowing of his heart rate, and diuresis, his intake and output balance was negative. Overall, we were able to diurese him a little over 7700 mL of negative balance. His weight was difficult to obtain at times. On admission, he was 117 kg, went up to 121 kg, and at discharge he is being recorded at 120 kg. We do not know how exact that is considering how negative his intake and output were. He was identified as having a urinary tract infection. It was sensitive to Bactrim. He was treated with Bactrim and expected to be treated for the next 3 weeks because of prostate. Blood pressure continued to be stable during his stay. He was not considered uncontrolled. He was encouraged, as an outpatient, to resume his CPAP. During his stay, he got up to urinate the night of 09/14/2017. He stubbed his toe and his ankle against the bedside brace, and it hurt to weight bear the next day and his ankle was a little bit swollen on inversion. We obtained films and other than osteoarthritis and soft tissue swelling, there was no other injury. I began advanced care planning discussions with him. With his new diagnosis of worsening congestive heart failure. I wanted to see what his plans were with regards to health care, planning for the future. He has not thought about the future. He recognizes that his lifestyle is getting increasingly restricted because of his inability to ambulate overall. Because this was a new thought process for him, he really could not formulate an answer with regards to future plans if he became so disabled that he needed to be taken care of. Right now he lives in the basement of his parents' house. It is getting harder and harder for him to climb that flight of stairs. It is also getting harder for him to even go out the garage door exit and walk around to the other door because it is uphill. At this time, he was unable to fill out a POLST. He did not know what his wishes were. As such, by default, he will be a FULL CODE. I asked him to strongly consider advanced care planning with his primary care provider and discuss at least resuscitative status. Make sure that he follows up with his software specialist because his software specialist needs to know that his ejection fraction is much worse, and make sure he follows up with his pelletising extruder operator. While I am sympathetic that he lost his pills, he cannot miss dosing from here on out. At discharge, I have given him a new prescription for Lasix and a new prescription for spironolactone. He has resumed his sotalol, resumed his Norvasc, but did not resume his JAYY inhibitor. I warned him that may be resumed by his primary care provider or his software specialist once he achieves a stable state with regards to his congestive heart failure. PHYSICAL EXAMINATION ON DISCHARGE VITAL SIGNS: Temperature was 36.7, pulse 66, blood pressure 109/80, respirations 18, 93% on room air. GENERAL: He is a middle-aged white male who looks older than stated age. NECK: No JVD. LUNGS: Over the last few days, he has had gradually decreasing rales. Initially they were all up into the upper lung [place], and when I came on service he was at the bases. He still has occasional crackle that clears with a good cough. CARDIAC: He has an irregular rate and rhythm that is now rate controlled. He is on anticoagulation with Pradaxa. He has a systolic ejection murmur and a diastolic murmur. ABDOMEN: Soft, nontender, with hypoactive bowel sounds. EXTREMITIES: There is only trace edema around the malleoli. His left ankle is still slightly warm and swollen from where he sprained it. He is ambulating in the room without any assistance or increased respiratory effort. He is asked to please follow up with seeing his primary care provider, software specialist, and pelletising extruder operator. Greater than 30 minutes was spent coordinating discharge. His software specialist is Dr. Evangelista. His primary care provider is Lindsey Pantoja. His pelletising extruder operator is Dr. Rai. I did get him an appointment with Dr. Evangelista on 09/24/2017. He has a 1:05 check-in, and his appointment is at 1:20. cc: ERVIN Ortiz TD: 09/20/2017 18:45
== END 2017-09-17 12:55 | disposition home or self-care (01) | DRG 292 ==
LOC: ED 10:58 → MS2 15:19
PROVIDERS: ADMIT Internal Medicine; ATTEND Specialist
DX: I11.0 Hypertensive heart disease with heart failure (principal); I50.9 Heart failure, unspecified; N30.00 Acute cystitis without hematuria; J44.9 Chronic obstructive pulmonary disease, unspecified; R09.02 Hypoxemia; N39.0 Urinary tract infection, site not specified; I50.23 Acute on chronic systolic (congestive) heart failure; T46.1X6A Underdosing of calcium-channel blockers, initial encounter; T44.7X6A Underdosing of beta-adrenoreceptor antagonists, initial encounter; T45.516A Underdosing of anticoagulants, initial encounter; T46.4X6A Underdosing of angiotensin-converting-enzyme inhibitors, initial encounter; Z91.138 Patient's unintentional underdosing of medication regimen for other reason; I48.91 Unspecified atrial fibrillation; I27.81 Cor pulmonale (chronic); I50.811 Acute right heart failure; I42.8 Other cardiomyopathies; B96.20 Unspecified Escherichia coli [E. coli] as the cause of diseases classified elsewhere; I49.5 Sick sinus syndrome; D86.0 Sarcoidosis of lung; G47.33 Obstructive sleep apnea (adult) (pediatric); I07.1 Rheumatic tricuspid insufficiency; I27.20 Pulmonary hypertension, unspecified; S93.402A Sprain of unspecified ligament of left ankle, initial encounter; W22.8XXA Striking against or struck by other objects, initial encounter; Y92.230 Patient room in hospital as the place of occurrence of the external cause; Z16.23 Resistance to quinolones and fluoroquinolones; Z95.828 Presence of other vascular implants and grafts; Z95.0 Presence of cardiac pacemaker; Z87.01 Personal history of pneumonia (recurrent); Z87.891 Personal history of nicotine dependence; Z79.01 Long term (current) use of anticoagulants; Z86.79 Personal history of other diseases of the circulatory system; Z91.19 Patient's noncompliance with other medical treatment and regimen
CPT/HCPCS: 36415; 71046; 74176; 80048; 80053; 81001; 81003; 83690; 83735; 83880; 84484; 85025; 87040; 87077; 87086; 93005; 93306; 96374; 96375; 99284

== ENCOUNTER 2018-02-02 11:40 | Outpatient (CLI) | payer MEDICARE | END 2018-02-02 11:41 | disposition home or self-care (01) | LOC: RT.S 11:40 | PROVIDERS: ATTEND Nurse Practitioner Family | DX: I48.91 Unspecified atrial fibrillation (principal) | CPT/HCPCS: 93005 ==

== ENCOUNTER 2018-02-04 11:54 | Inpatient (IN) | payer MEDICARE ==
[2018-02-04 12:48] LABS: BASOPHILS # (AUTO) 0.1 10^3/uL (0.0-0.1); BASOPHILS % (AUTO) 1.1 %; EOSINOPHILS # (AUTO) 0.1 10^3/uL (0.0-0.7); EOSINOPHILS % (AUTO) 0.8 %; LYMPHOCYTES # (AUTO) 0.5 10^3/uL (1.5-3.5); LYMPHOCYTES % (AUTO) 5.3 %; MEAN CORPUSCULAR HEMOGLOBIN 30.8 pg (27.0-31.0); MEAN CORPUSCULAR HGB CONC 32.4 g/dL (32.0-36.0); MEAN CORPUSCULAR VOLUME 95.2 fL (80.0-94.0); MONOCYTES # (AUTO) 0.7 10^3/uL (0.0-1.0); MONOCYTES % (AUTO) 8.4 %; NEUTROPHILS # (AUTO) 7.4 10^3/uL (1.5-6.6); NEUTROPHILS % (AUTO) 84.4 %; PLT - PLATELET COUNT 185 10^3/uL (130-450); RED BLOOD COUNT 4.53 10^6/uL (4.70-6.10); RED CELL DISTRIBUTION WIDTH 16.8 % (12.0-15.0); WHITE BLOOD COUNT 8.7 x10^3/uL (4.8-10.8)
--- NOTE | 2018-02-04 12:59 | ED Physician Documentation ---
History of Present Illness - Stated complaint Stated Complaint: SOA - Chief complaint Chief Complaint: Cardiac - History obtained from History obtained from: Patient - History of Present Illness Timing: How many days ago (several) Pain level max: 0 Pain level now: 0 Improved by: rest Worsened by: exertion, lying flat - Additonal information Additional information: Patient is a 62-year-old male who presents to the emergency department several days of worsening shortness of breath. He states that he feels like his congestive heart failure is worsening. Does not use home O2. No chest pain. Review of Systems Ten Systems: 10 systems reviewed and negative Constitutional: denies: Fever, Chills Ears: denies: Ear pain Nose: denies: Rhinorrhea / runny nose, Congestion Throat: denies: Sore throat Cardiac: denies: Chest pain / pressure, Palpitations Respiratory: reports: Dyspnea. denies: Cough GI: denies: Abdominal Pain, Vomiting, Diarrhea Skin: denies: Rash Musculoskeletal: denies: Neck pain, Back pain Neurologic: denies: Focal weakness, Numbness, Headache PD PAST MEDICAL HISTORY - Past Medical History Past Medical History: Yes Cardiovascular: Congestive heart failure, Hypertension, Atrial fibrillation Respiratory: Other Endocrine/Autoimmune: None Psych: None Musculoskeletal: Chronic back pain Derm: None - Past Surgical History Past Surgical History: Yes General: Colonoscopy Cardiovascular: Pacemaker HEENT: Tonsil/Adenoidectomy - Present Medications Home Medications: Ambulatory Orders Medication Instructions Recorded Confirmed Allopurinol [Zyloprim] 100 mg PO DAILY 09/12/17 02/04/18 Dabigatran Etexilate Mesylate 150 mg PO BID 09/12/17 02/04/18 [Pradaxa] Lisinopril [Zestril] 20 mg PO BID 09/12/17 02/04/18 Spironolactone [Aldactone] 25 mg PO DAILY #30 tablet 09/17/17 02/04/18 Furosemide [Lasix] 20 mg PO BIDDIURETIC 02/04/18 02/04/18 Metoprolol Succinate [Toprol Xl] 200 mg PO DAILY 02/04/18 02/04/18 - Allergies Allergies/Adverse Reactions: Allergies Allergy/AdvReac Type Severity Reaction Status Date / Time No Known Drug Allergies Allergy Verified 02/04/18 13:16 - Social History Does the pt smoke?: Yes Smoking Status: Current every day smoker Does the pt drink ETOH?: Yes Does the pt have substance abuse?: Yes - POLST Patient has POLST: No PD ED PE NORMAL - Vitals Vital signs reviewed: Yes - General General: Alert and oriented X 3, No acute distress - HEENT HEENT: Moist mucous membranes - Neck Neck: Supple, no meningeal sign - Cardiac Cardiac: Other (irregular) - Respiratory Respiratory: Other (diminished BS bilaterally.) - Abdomen Abdomen: Soft, Non tender, Non distended - Derm Derm: Warm and dry - Extremities Extremities: No edema - Neuro Neuro: Alert and oriented X 3 - Psych Psych: Normal mood, Normal affect Results - Vitals Vitals: Vital Signs - 24 hr 02/04/18 11:58 Temperature 36.4 C L Heart Rate 94 Respiratory 36 H Rate Blood Pressure 138/95 H O2 Saturation 87 L Oxygen O2 Source [With Activity] Room air O2 Source [Without Activity] Room air O2 Source Room air - EKG (time done) 1206 Rate: Rate (enter#) (92) Rhythm: Atrial fibrillation [place]: Normal QRS: Normal Ischemia: Normal ST segments - Labs Labs: Laboratory Tests 02/04/18 12:20 WBC 8.7 RBC 4.53 L Hgb 14.0 Hct 43.2 MCV 95.2 H MCH 30.8 MCHC 32.4 RDW 16.8 H Plt Count 185 MPV 8.0 Neut # (Auto) 7.4 H Lymph # (Auto) 0.5 L Bath # (Auto) 0.7 Eos # (Auto) 0.1 Baso # (Auto) 0.1 Absolute Nucleated RBC 0.00 Nucleated RBC % 0.0 - Rads (name of study) cxr Radiology: Prelim report reviewed, EMP read contemporaneously, See rad report (Ovoid, somewhat spiculated opacity in the right suprahilar region appears increased in density since 2017. Neoplasm cannot be excluded. Chest CT is recommended for further evaluation. 2. No significant change in hazy bibasilar opacities and small bilateral pleural effusions. Opacities may represent atelectasis or infiltrate. 3. Bilateral hilar prominence, present on multiple prior examinations and suggestive of pulmonary arterial enlargement, which raises the possibility of pulmonary arterial hypertension. ) PD MEDICAL DECISION MAKING - ED course Complexity details: reviewed old records, reviewed results, re-evaluated patient, considered differential, d/w patient, d/w senior sustainability consultant ED course: Patient is a 62-year-old male who presents to the emergency department with an acute CHF exacerbation and pulmonary edema. Given IV Lasix as well as a DuoNeb treatment for possible COPD involvement. He remains hypoxic and will need diuresis as an inpatient. Discussed the case with Dr. Mccullough, hospitalist who accepts. This document was made in part using voice recognition software. While efforts are made to proofread this document, sound alike and grammatical errors may occur. - Sepsis Event Vital Signs: Vital Signs - 24 hr 02/04/18 11:58 Temperature 36.4 C L Heart Rate 94 Respiratory 36 H Rate Blood Pressure 138/95 H O2 Saturation 87 L Oxygen O2 Source [With Activity] Room air O2 Source [Without Activity] Room air O2 Source Room air Departure - Departure Disposition: 66 [facility] DC/Xfer Clinical Impression: Hypoxia, Lung mass Acute exacerbation of CHF (congestive heart failure) Qualifiers: Heart failure type: unspecified Qualified Code(s): I50.9 - Heart failure, unspecified Pulmonary edema Qualifiers: Chronicity: acute Qualified Code(s): J81.0 - Acute pulmonary edema Condition: Stable
[2018-02-04 13:05] LABS: ALBUMIN 3.7 g/dL (3.2-5.5); ALBUMIN/GLOBULIN RATIO 1.2 (1.0-2.2); BILIRUBIN,TOTAL 0.9 mg/dL (0.2-1.0); CALCIUM 9.9 mg/dL (8.5-10.3); TOTAL PROTEIN 6.8 g/dL (6.7-8.2)
[2018-02-04] MEDS ORDERED: FUROSEMIDE 40 MG/4 ML VIAL IVP STA (13:05)
[2018-02-04] MEDS ORDERED: IPRATROPIUM/ALBUTEROL 3 ML NEB INH STA (13:05)
--- NOTE | 2018-02-04 13:17 | XRAY Report ---
Reason: SOA Procedure Date: 02/04/2018 Accession Number: [id number] / [id number] Procedure: XR - Chest 2 View X-Ray CPT Code: 22878 FULL RESULT: EXAM: CHEST RADIOGRAPHY EXAM DATE: 02/04/2018 12:42 PM. CLINICAL HISTORY: Shortness of breath. COMPARISON: Chest radiograph from 09/12/2017, 10/08/2016, 04/06/2014. TECHNIQUE: 2 views. FINDINGS: Examination is overall underpenetrated. Lungs/Pleura: There are hazy bibasilar opacities, which have not significantly changed from prior examinations. There is ovoid, mildly spiculated opacity in the right suprahilar region, present on the most recent prior examination but more dense than on the 2017 examination. Small bilateral pleural effusions demonstrated. No pneumothorax. Mediastinum: Cardiac silhouette is mildly enlarged. Mediastinal contour is mildly prominent, similar to prior examinations. There is bilateral hilar prominence, which has been present on multiple prior examinations, suggestive of pulmonary arterial enlargement. Other: Generator overlies the left chest with leads in the right atrium and right ventricle. IMPRESSION: 1. Ovoid, somewhat spiculated opacity in the right suprahilar region appears increased in density since 2017. Neoplasm cannot be excluded. Chest CT is recommended for further evaluation. 2. No significant change in hazy bibasilar opacities and small bilateral pleural effusions. Opacities may represent atelectasis or infiltrate. 3. Bilateral hilar prominence, present on multiple prior examinations and suggestive of pulmonary arterial enlargement, which raises the possibility of pulmonary arterial hypertension. [facility]
[2018-02-04] MEDS ORDERED: ONDANSETRON 4 MG/2 ML VIAL IVP PRN (14:02)
[2018-02-04] MEDS ORDERED: ZOLPIDEM 5 MG TABLET PO PRN (14:02)
[2018-02-04] MEDS ORDERED: ACETAMINOPHEN 325 MG TABLET PO PRN (14:02)
[2018-02-04] MEDS ORDERED: IOPAMIDOL-300 100 ML VIAL ONE (14:07)
[2018-02-04] MEDS ORDERED: IPRATROPIUM/ALBUTEROL 3 ML NEB INH PRN (14:09)
[2018-02-04] MEDS ORDERED: ALBUTEROL NEB 2.5 MG/3 ML INH PRN (14:09)
--- NOTE | 2018-02-04 14:15 | HISTORY & PHYSICAL EXAMINATION ---
Chief Complaint - Chief Complaint Chief Complaint: shortness of breath History of Present Illness - History of Present Illness HPI Comment/Other: Mr. mcgee is a 62-year-old male with a PMH significant for HTN, tachybrady syndrome requiring a pacemakeer implant about 4 yrs ago, CHF, HTN, Afib on Pradaxa, chronic back pain, HLD, sarcoidosis, obesity, who presents to the emergency department for 3-4 days of worsening shortness of breath. He states, after he stayed at his mother home, ate more of "good food" his mother made, he became shortness of breath. He recognized he gained 3-4 pound of weight in the recent a few days. he feels like his congestive heart failure is worsening. Pt report he had similar episode about 4 months, which let him admitted in the hospital. Pt also report gain some of leg edema, PND, and orthopnea. Pt denies use O2 in the home. He denies chest pain, fever, chill, cough. Pt had significant elevated BNP 4700 from 270 on last admission. CXR reveals ovoid, spiculated opacity in the right suprahilar region, neoplasm cannot be excluded, no significant changes in hazy bibasilar opacities, also raises the possibility of pulmonary arterial hypertension. History - Past Medical History Cardiovascular: reports: Congestive heart failure, Hypertension, Atrial fibrillation Respiratory: reports: Other Endocrine/Autoimmune: reports: None Psych: reports: None Musculoskeletal: reports: Chronic back pain Derm: reports: None MRSA Hx?: No - Past Surgical History General: reports: Colonoscopy Cardiovascular: reports: Pacemaker HEENT: reports: Tonsil/Adenoidectomy - Family & Social History Family History: Mother: Alive and Well, CAD, CVA/TIA, Father: Alive and Well, Cancer Social History Notes: pt is ex-smoker, quit 10 yrs ago, drink beer socially, no illicit drug abuse. - POLST Patient has POLST: No Meds/Allgy - Home Medications Home Medications: Ambulatory Orders Medication Instructions Recorded Confirmed Allopurinol [Zyloprim] 100 mg PO DAILY 09/12/17 02/04/18 Dabigatran Etexilate Mesylate 150 mg PO BID 09/12/17 02/04/18 [Pradaxa] Lisinopril [Zestril] 20 mg PO BID 09/12/17 02/04/18 Spironolactone [Aldactone] 25 mg PO DAILY #30 tablet 09/17/17 02/04/18 Furosemide [Lasix] 20 mg PO BIDDIURETIC 02/04/18 02/04/18 Metoprolol Succinate [Toprol Xl] 200 mg PO DAILY 02/04/18 02/04/18 - Allergies Allergies/Adverse Reactions: Allergies Allergy/AdvReac Type Severity Reaction Status Date / Time No Known Drug Allergies Allergy Verified 02/04/18 13:16 Review of Systems - Constitutional Constitutional: reports: Weight loss. denies: Fatigue, Fever, Chills, Malaise, Weakness, Poor appetite, Diaphoresis, Night sweats - Eyes Eyes: denies: Pain, Irritation, Amaurosis, Blurred vision, Spots in vision, Field loss, Vision loss, Dipolpia - Ears, Nose & Throat Ears, Nose & Throat: denies: Ear pain, Hearing loss, Hearing aids, Tinnitus, Vertigo, Nasal pain, Nasal discharge, Nosebleeds, Nasal obstruction, Nasal congestion, Postnasal drainage, Sore throat, Hoarseness - Cardiovascular Cariovascular: denies: Irregular heart rate, Palpitations, Chest pain, Edema, Lightheadedness, Syncope, Exertional dyspnea, Decr. exercise tolerance - Respiratory Respiratory: reports: Orthopnea, SOB with exertion. denies: Cough, Sputum production, Wheezing, Snoring, Hemoptysis, SOB at rest, Apnea, Stridor, Pleuritic pain - Gastrointestinal Gastrointestinal: denies: Abdominal pain, Abdominal distention, Constipation, Diarrhea, Change in bowel habits, Rectal bleeding, Black stools, Bloody stools, Nausea, Vomiting, Bile emesis, Marco blood emesis, Coffee grounds emesis, Reflux/heartburn - Genitourinary Genitourinary: denies: Dysuria, Frequency, Urgency, Hematuria, Incontinence, Flank pain, Nocturia, Urethral discharge - Musculoskeletal Musculoskeletal: denies: Muscle pain, Back pain, Muscle aches, Stiffness, Limited range of motion, Muscle weakness, Gout, Joint pain - Integumentary Integumentary: denies: Rash, Pruritis, Lesions, Dryness, Lumps, Pigment changes, Nail changes - Neurological Neurological: denies: General weakness, Focal weakness, Headache, Dizziness, Numbness, Memory problems, Pre-existing deficit, Abnormal gait, Seizures, Incoordination, Slurred speech - Psychiatric Psychiatric: denies: Depression, Anxiety, Suicidal, Delusions, Hallucinations, Homicidal - Endocrine Endocrine: denies: Polyuria, Polydypsia, Polyphagia, Intolerance to cold - Hematologic/Lymphatic Hematologic/Lymphatic: denies: Anemia, Bruising, Petechiae, Blood clots, Lymphadenopathy, Bleeding tendencies Prior Level of Functionality: pt is living with his parent at his parent's house of base first floor in [facility]. Pt is window, his children are far from [facility] Exam - Vital Signs Reviewed Vital Signs: Yes Vital Signs: Vital Signs x48h Temp Pulse Resp BP Pulse Ox 02/04/18 13:54 88 18 142/93 H 94 02/04/18 13:22 82 26 H 02/04/18 11:58 36.4 C L 94 36 H 138/95 H 87 L - Physical Exam General Appearance: positive: No acute distress, Alert. negative: Lethargic Eyes Bilateral: positive: Normal inspection, PERRL, No lid inflammation, Conjunctivae nml ENT: positive: ENT inspection nml, Pharynx nml, No signs of dehydration. negative: Purulent nasal drainage, Pharyngeal erythema, Oral lesions Neck: positive: Nml inspection, Thyroid nml, No JVD, Trachea midline. negative: Thyromegaly, Lymphadenopathy (R), Lymphadenopathy (L), Stiff neck, Swelling/bruising, Tracheal deviation Respiratory: positive: Chest non-tender, No respiratory distress. negative: Wheezes, Rales, Rhonchi Cardiovascular: positive: Regular rate & rhythm, No murmur, No gallop. negative: Irregularly irregular, Extrasystoles, Tachycardia, Bradycardia, JVD present, Systolic murmur, Diastolic murmur Peripheral Pulses: positive: 2+ Abdomen: positive: Non-tender, No organomegaly, Nml bowel sounds, No distention. negative: Tenderness, Guarding, Rebound Back: positive: Nml inspection. negative: CVA tenderness (R), CVA tenderness (L) Skin: positive: Color nml, No rash, Warm, Dry. negative: Cyanosis, Diaphoresis, Pallor Extremities: positive: Non-tender, Full ROM, Nml appearance. negative: Calf tenderness, Joint swelling, Marika's sign/cords Neurologic/Psychiatric: positive: Oriented x3, Motor nml, Sensation nml, Mood/affect nml. negative: Weakness, Sensory loss, Facial droop, Slurred/abnml speech, Depressed mood/affect Conclusion/Plan - Problem List (1) CHF exacerbation Conclusion/Plan: pt present PNA, orthopnea, weight gain then SOB, and significant elevated BNP, recurrent CHF exacerbation., gain a few pound of weight before he had symptoms. pt's last ECHO reveals 35% EF Lasix IV of 40 mg bid ECHO, follow up tele, vital monitor daily lab monitor fluid restriction daily weight lower sodium cardiac diet (2) Hypoxia Conclusion/Plan: pt present 87% sats at room air in ER. pt has hx of sarcoidosis, hx of cigarette smoker, CXR indicates spiculated ovoid. order PRN duoneb, albuteral O2 supplement PRN CT of chest, will followup (3) Afib Conclusion/Plan: stable, HR is around 80 continue home meds beta-cary continue Pradaxa tele, vital monitor (4) HTN (hypertension) Conclusion/Plan: stable now, resume home meds (5) Sarcoidosis Conclusion/Plan: pt followup his environmental aide now, encourage pt continue, pt will have CT of chest and follow up, since CXR is not clearly for etiology (6) DVT prophylaxis Conclusion/Plan: SCD (7) Full code status Conclusion/Plan: pt request full code - Lab Results Fish Bones: 02/04/18 12:20 02/04/18 12:20 Core Measures - Anticipated LOS I expect patient to be DC'd or transferred within 96 hours.: Yes - DVT/VTE - Prophylaxis VTE/DVT Device ordered at admit?: Yes VTE/DVT Prophylaxis med ordered at admit?: No
[2018-02-04] MEDS ORDERED: IOPAMIDOL-300 100 ML VIAL IVP ONE (14:27)
--- NOTE | 2018-02-04 14:49 | CT Report ---
Reason: ovoid, spiculated opacity Procedure Date: 02/04/2018 Accession Number: [id number] / [id number] Procedure: CT - Chest W/ CPT Code: FULL RESULT: EXAM: CT CHEST EXAM DATE: 02/04/2018 02:26 PM. CLINICAL HISTORY: Ovoid, spiculated opacity seen on chest radiography. COMPARISONS: CHEST 2 VIEW 02/04/2018 12:33 PM. TECHNIQUE: Routine helical CT imaging was performed through the chest. IV contrast: 80 cc Isovue 300. Reconstructions: Coronal and sagittal. In accordance with CT protocol optimization, one or more of the following dose reduction techniques were utilized for this exam: automated exposure control, adjustment of mA and/or KV based on patient size, or use of iterative reconstructive technique. FINDINGS: Lungs/Pleura: Irregular, primarily linear band of tissue in the right upper lobe measuring up to 2 cm in thickness. Small linear band of tissue in the left upper lobe (6 mm thick). Mild diffuse fine interstitial opacities, but no other concerning focal opacity in the aerated parenchyma. Mild bibasilar atelectasis versus scarring. Moderate right and small left pleural effusions. No pneumothorax. Mediastinum: Lymphadenopathy, for example with a precarinal node measuring 14 mm in short axis diameter. Multiple calcified or partially calcified nodes compatible with chronic granulomatous disease. Mild to moderate cardiomegaly. No pericardial effusion. Bones: Unremarkable. Visualized Abdomen: There may be left periaortic lymphadenopathy just inferior to the hiatus. Otherwise the visualized abdomen is unremarkable. Other: No axillary adenopathy. IMPRESSION: 1. Thick, irregular linear opacity in the right upper lobe may reflect a chronic process but underlying neoplasm is not excluded. PET/CT or biopsy is recommended for further evaluation. 2. Mediastinal lymphadenopathy, possible retroperitoneal lymphadenopathy, and bilateral pleural effusions. RADIA
[2018-02-04] MEDS: FUROSEMIDE 40 MG/4 ML VIAL IVP SCH (19:24)
[2018-02-04] MEDS: SODIUM CHLORIDE FLUSH 0.9% 10 ML SYRINGE IVP SCH (19:24)
[2018-02-04] MEDS: DABIGATRAN 75 MG CAPSULE PO SCH (20:38)
[2018-02-04] MEDS: LISINOPRIL 20 MG TABLET PO SCH (20:38)
[2018-02-05] MEDS: SODIUM CHLORIDE FLUSH 0.9% 10 ML SYRINGE IVP SCH ×3 (00:06→17:08)
[2018-02-05 06:08] LABS: BASOPHILS # (AUTO) 0.1 10^3/uL (0.0-0.1); BASOPHILS % (AUTO) 1.3 %; EOSINOPHILS # (AUTO) 0.2 10^3/uL (0.0-0.7); HGB - HEMOGLOBIN 14.2 g/dL (14.0-18.0); LYMPHOCYTES # (AUTO) 0.5 10^3/uL (1.5-3.5); LYMPHOCYTES % (AUTO) 6.8 %; MEAN CORPUSCULAR HEMOGLOBIN 30.8 pg (27.0-31.0); MEAN CORPUSCULAR HGB CONC 32.2 g/dL (32.0-36.0); MEAN CORPUSCULAR VOLUME 95.6 fL (80.0-94.0); MEAN PLATELET VOLUME 7.8 fL (7.4-11.4); MONOCYTES # (AUTO) 0.6 10^3/uL (0.0-1.0); MONOCYTES % (AUTO) 8.5 %; NEUTROPHILS # (AUTO) 6.1 10^3/uL (1.5-6.6); NEUTROPHILS % (AUTO) 80.4 %; PLT - PLATELET COUNT 180 10^3/uL (130-450); RED CELL DISTRIBUTION WIDTH 16.7 % (12.0-15.0); WHITE BLOOD COUNT 7.6 x10^3/uL (4.8-10.8)
[2018-02-05 06:18] LABS: ALBUMIN 3.6 g/dL (3.2-5.5); ALBUMIN/GLOBULIN RATIO 1.2 (1.0-2.2); BILIRUBIN,TOTAL 0.9 mg/dL (0.2-1.0); CALCIUM 9.3 mg/dL (8.5-10.3); MAGNESIUM 2.1 mg/dL (1.7-2.8); TOTAL PROTEIN 6.6 g/dL (6.7-8.2)
[2018-02-05] MEDS: FUROSEMIDE 40 MG/4 ML VIAL IVP SCH ×2 (06:41→14:58)
[2018-02-05] MEDS ORDERED: ENOXAPARIN 40 MG/0.4 ML SYRINGE SUBQ SCH (09:00)
[2018-02-05] MEDS: ALLOPURINOL 100 MG TABLET PO SCH (09:36)
[2018-02-05] MEDS: SPIRONOLACTONE 25 MG TABLET PO SCH (09:36)
[2018-02-05] MEDS: FAMOTIDINE 20 MG TABLET PO SCH (09:36)
[2018-02-05] MEDS: DABIGATRAN 75 MG CAPSULE PO SCH ×2 (09:36→20:23)
[2018-02-05] MEDS: METOPROLOL SUCCINATE 50 MG TABLET PO SCH (09:36)
[2018-02-05] MEDS: POLYETHYLENE GLYCOL 3350 17 GM PACKET PO SCH (09:36)
[2018-02-05] MEDS: LISINOPRIL 20 MG TABLET PO SCH ×2 (09:36→20:24)
--- NOTE | 2018-02-05 11:20 | PROVIDER PROGRESS NOTE ---
Subjective - Prog Note Date Prog Note Date: 02/05/18 - Subjective Pt reports feeling: Improved Subjective: pt state he feel better than yesterday, shortness of breath is better when he walk to bathroom, but still feel very fatigue. pt denies fever, chill, CP Current Medications - Current Medications Current Medications: Active Medications Acetaminophen (Tylenol) 650 mg PO Q4HR PRN PRN Reason: Pain 1 to 4 Albuterol () 2.5 mg INH QID PRN PRN Reason: Wheezing Albuterol/Ipratropium (Duoneb) 3 ml INH RTQID PRN PRN Reason: Shortness of Air/Wheezing Allopurinol (Zyloprim) 100 mg PO DAILY [facility] Last Admin: 02/05/18 09:36 Dose: 100 mg Dabigatran (Pradaxa) 150 mg PO BID [facility] Last Admin: 02/05/18 09:36 Dose: 150 mg Famotidine (Pepcid) 20 mg PO DAILY [facility] Last Admin: 02/05/18 09:36 Dose: 20 mg Furosemide (Lasix Inj 40 Mg Vial) 40 mg IVP BIDDIURETIC [facility] Last Admin: 02/05/18 06:41 Dose: 40 mg Lisinopril (Zestril) 20 mg PO BID [facility] Last Admin: 02/05/18 09:36 Dose: 20 mg Metoprolol Succinate (Toprol Xl) 200 mg PO DAILY [facility] Last Admin: 02/05/18 09:36 Dose: 200 mg Ondansetron HCl (Zofran Inj) 4 mg IVP Q6HR PRN PRN Reason: Nausea / Vomiting Polyethylene Glycol (Miralax) 17 gm PO DAILY [facility] Last Admin: 02/05/18 09:36 Dose: 17 gm Sodium Chloride (Normal Saline Flush 0.9%) 10 ml IVP PRN PRN PRN Reason: NEEDED PER PROVIDER ORDERS Sodium Chloride (Normal Saline Flush 0.9%) 10 ml IVP 0100,0900,1700 [facility] Last Admin: 02/05/18 09:37 Dose: 10 ml Spironolactone (Aldactone) 25 mg PO DAILY [facility] Last Admin: 02/05/18 09:36 Dose: 25 mg Zolpidem Tartrate (Ambien) 5 mg PO QPM PRN PRN Reason: Insomnia Allopurinol [Zyloprim] 100 mg PO DAILY 09/12/17 Dabigatran Etexilate Mesylate [Pradaxa] 150 mg PO BID 09/12/17 Lisinopril [Zestril] 20 mg PO BID 09/12/17 Furosemide [Lasix] 20 mg PO BIDDIURETIC 02/04/18 Metoprolol Succinate [Toprol Xl] 200 mg PO DAILY 02/04/18 Objective - Vital Signs/Intake & Output Reviewed Vital Signs: Yes Vital Signs: Vital Signs x48h Temp Pulse Resp BP Pulse Ox 02/05/18 08:00 36.7 C 106 H 19 147/90 H 95 02/05/18 04:00 36.8 C 95 18 118/90 H 93 Intake & Output: Intake & Output 02/02/18 02/03/18 02/04/18 02/05/18 23:59 23:59 23:59 23:59 Intake Total 420 800 Output Total 3200 2825 Balance -278 -2024 - Objective General Appearance: positive: No acute distress, Alert. negative: Lethargic Eyes Bilateral: positive: Normal inspection, PERRL, No lid inflammation, Conjunc tivae nml ENT: positive: ENT inspection nml, Pharynx nml, No signs of dehydration. negative: Purulent nasal drainage, Pharyngeal erythema, Oral lesions Neck: positive: Nml inspection, Thyroid nml, No JVD. negative: Trachea midline, Thyromegaly, Lymphadenopathy (R), Lymphadenopathy (L), Stiff neck, Swelling/bruising, Tracheal deviation Respiratory: positive: Chest non-tender, No respiratory distress, Breath sounds nml. negative: Wheezes, Rales, Rhonchi Cardiovascular: positive: Regular rate & rhythm, No murmur, No gallop. negative: Irregularly irregular, Extrasystoles, Tachycardia, Bradycardia, JVD present, Systolic murmur, Diastolic murmur Peripheral Pulses: 2+ Radial (R), 2+ Radial (L), 2+ Dorsalis pedis (R), 2+ Dorsalis pedis (L) Abdomen: positive: Non-tender, No organomegaly, Nml bowel sounds, No distention. negative: Tenderness, Guarding, Rebound Back: positive: Nml inspection. negative: CVA tenderness (R), CVA tenderness (L) Skin: positive: Color nml, No rash, Warm, Dry. negative: Cyanosis, Diaphoresis, Pallor Extremities: positive: Non-tender, Full ROM, Nml appearance. negative: Calf tenderness, Joint swelling, Marika's sign/cords Neurologic/Psychiatric: positive: Oriented x3, Motor nml, Sensation nml, Mood/affect nml. negative: Weakness, Sensory loss, Facial droop, Slurred/abnml speech, Depressed mood/affect - Lab Results Fish Bones: 02/05/18 05:35 02/05/18 05:35 Other Labs: Lab Results x24hrs 02/05/18 02/05/18 02/05/18 Range/Units 05:35 05:35 05:35 WBC 7.6 (4.8-10.8) x10^3/uL RBC 4.60 L (4.70-6.10) 10^6/uL Hgb 14.2 (14.0-18.0) g/dL Hct 44.0 (42.0-52.0) % MCV 95.6 H (80.0-94.0) fL MCH 30.8 (27.0-31.0) pg MCHC 32.2 (32.0-36.0) g/dL RDW 16.7 H (12.0-15.0) % Plt Count 180 (130-450) 10^3/uL MPV 7.8 (7.4-11.4) fL Neut # (Auto) 6.1 (1.5-6.6) 10^3/uL Lymph # (Auto) 0.5 L (1.5-3.5) 10^3/uL Sherman # (Auto) 0.6 (0.0-1.0) 10^3/uL Eos # (Auto) 0.2 (0.0-0.7) 10^3/uL Baso # (Auto) 0.1 (0.0-0.1) 10^3/uL Absolute Nucleated RBC 0.01 x10^3/uL Nucleated RBC % 0.1 /100WBC Sodium 140 (135-145) mmol/L Potassium 4.5 (3.5-5.0) mmol/L Chloride 99 L (101-111) mmol/L Carbon Dioxide 33 H (21-32) mmol/L Anion Gap 8.0 (6-13) BUN 35 H (6-20) mg/dL Creatinine 1.0 (0.6-1.2) mg/dL Estimated GFR (MDRD) 75 L (>89) Glucose 98 (70-100) mg/dL Calcium 9.3 (8.5-10.3) mg/dL Magnesium 2.1 (1.7-2.8) mg/dL Total Bilirubin 0.9 (0.2-1.0) mg/dL AST 26 (10-42) IU/L ALT 25 (10-60) IU/L Alkaline Phosphatase 73 (42-121) IU/L Troponin I (<0.49) ng/mL B-Natriuretic Peptide 2555 H (5-100) pg/mL Total Protein 6.6 L (6.7-8.2) g/dL Albumin 3.6 (3.2-5.5) g/dL Globulin 3.0 (2.1-4.2) g/dL Albumin/Globulin Ratio 1.2 (1.0-2.2) Lipase (22-51) U/L 02/04/18 02/04/18 02/04/18 Range/Units 12:20 12:20 12:20 WBC (4.8-10.8) x10^3/uL RBC (4.70-6.10) 10^6/uL Hgb (14.0-18.0) g/dL Hct (42.0-52.0) % MCV (80.0-94.0) fL MCH (27.0-31.0) pg MCHC (32.0-36.0) g/dL RDW (12.0-15.0) % Plt Count (130-450) 10^3/uL MPV (7.4-11.4) fL Neut # (Auto) (1.5-6.6) 10^3/uL Lymph # (Auto) (1.5-3.5) 10^3/uL Sherman # (Auto) (0.0-1.0) 10^3/uL Eos # (Auto) (0.0-0.7) 10^3/uL Baso # (Auto) (0.0-0.1) 10^3/uL Absolute Nucleated RBC x10^3/uL Nucleated RBC % /100WBC Sodium 142 (135-145) mmol/L Potassium 4.3 (3.5-5.0) mmol/L Chloride 100 L (101-111) mmol/L Carbon Dioxide 35 H (21-32) mmol/L Anion Gap 7.0 (6-13) BUN 29 H (6-20) mg/dL Creatinine 1.0 (0.6-1.2) mg/dL Estimated GFR (MDRD) 75 L (>89) Glucose 99 (70-100) mg/dL Calcium 9.9 (8.5-10.3) mg/dL Magnesium (1.7-2.8) mg/dL Total Bilirubin 0.9 (0.2-1.0) mg/dL AST 22 (10-42) IU/L ALT 17 (10-60) IU/L Alkaline Phosphatase 74 (42-121) IU/L Troponin I < 0.04 (<0.49) ng/mL B-Natriuretic Peptide 4710 H (5-100) pg/mL Total Protein 6.8 (6.7-8.2) g/dL Albumin 3.7 (3.2-5.5) g/dL Globulin 3.1 (2.1-4.2) g/dL Albumin/Globulin Ratio 1.2 (1.0-2.2) Lipase 52 H (22-51) U/L 02/04/18 Range/Units 12:20 WBC 8.7 (4.8-10.8) x10^3/uL RBC 4.53 L (4.70-6.10) 10^6/uL Hgb 14.0 (14.0-18.0) g/dL Hct 43.2 (42.0-52.0) % MCV 95.2 H (80.0-94.0) fL MCH 30.8 (27.0-31.0) pg MCHC 32.4 (32.0-36.0) g/dL RDW 16.8 H (12.0-15.0) % Plt Count 185 (130-450) 10^3/uL MPV 8.0 (7.4-11.4) fL Neut # (Auto) 7.4 H (1.5-6.6) 10^3/uL Lymph # (Auto) 0.5 L (1.5-3.5) 10^3/uL Sherman # (Auto) 0.7 (0.0-1.0) 10^3/uL Eos # (Auto) 0.1 (0.0-0.7) 10^3/uL Baso # (Auto) 0.1 (0.0-0.1) 10^3/uL Absolute Nucleated RBC 0.00 x10^3/uL Nucleated RBC % 0.0 /100WBC Sodium (135-145) mmol/L Potassium (3.5-5.0) mmol/L Chloride (101-111) mmol/L Carbon Dioxide (21-32) mmol/L Anion Gap (6-13) BUN (6-20) mg/dL Creatinine (0.6-1.2) mg/dL Estimated GFR (MDRD) (>89) Glucose (70-100) mg/dL Calcium (8.5-10.3) mg/dL Magnesium (1.7-2.8) mg/dL Total Bilirubin (0.2-1.0) mg/dL AST (10-42) IU/L ALT (10-60) IU/L Alkaline Phosphatase (42-121) IU/L Troponin I (<0.49) ng/mL B-Natriuretic Peptide (5-100) pg/mL Total Protein (6.7-8.2) g/dL Albumin (3.2-5.5) g/dL Globulin (2.1-4.2) g/dL Albumin/Globulin Ratio (1.0-2.2) Lipase (22-51) U/L ABX Reporting Has patient been on IV antibiotics over the past 48 hours?: No Assessment/Plan - Problem List (1) CHF exacerbation Impression: Conclusion/Plan: 02/04 pt feel better, less shortness of breath on exertion, BNP is down to 2500 from 4700 discussed with pt about new ECHO finding, EF 20-25%. pt recognize the severity of his heart condition, advise follow up his nursing specialist very closely. pt also consider palliative care consult with palliative care continue IV of Lasix continue Fluid restriction, daily weight, low sodium diet continue tele, vital monitor pt present PNA, orthopnea, weight gain then SOB, and significant elevated BNP, recurrent CHF exacerbation., gain a few pound of weight before he had symptoms. pt's last ECHO reveals 35% EF Lasix IV of 40 mg bid ECHO, follow up tele, vital monitor daily lab monitor fluid restriction daily weight lower sodium cardiac diet (2) Hypoxia Conclusion/Plan: 02/04 96% sats on 3 liter of O2 discussed with pt about the finding on chest CT, advise pt follow up his polisher aluminum very closely. pt state he has appointment with his polisher aluminum on end of continue RT treatment as needed pt present 87% sats at room air in ER. pt has hx of sarcoidosis, hx of cigarette smoker, CXR indicates spiculated ovoid. order PRN duoneb, albuteral O2 supplement PRN CT of chest, will followup (3) Afib Conclusion/Plan: stable, HR is around 80 continue home meds beta-cary continue Pradaxa tele, vital monitor (4) HTN (hypertension) Conclusion/Plan: stable now, resume home meds (5) Sarcoidosis Conclusion/Plan: pt followup his polisher aluminum now, encourage pt continue, pt will have CT of chest and follow up, since CXR is not clearly for etiology
--- NOTE | 2018-02-05 12:34 | ADVANCE CARE PLANNING NOTE ---
Advance Care Planning - Date/Time Date: 02/05/18 Time: 12:32 - Purpose of encounter Text: advance care - Parties in attendance Parties in attendance: pt and me - Decisional capacity Decisional capacity of: pt seek palliative care - Subjective/Patient's story Subjective/Patient's story: pt state he feel very fatigue and can not tolerate to activity, shortness of breath on exertion. - Objective/Medical story Objective/Medical Story: new ECHO reveals EF 20-25%. CT of chest reveals lung nodule with lymphadenopathy - Goals of Care Goals of care determinations: seek palliative care, look for quality of life - Plan Plan: consult with palliative care, will follow up - Code Status Code Status: Attempt Resuscitation - Time Spent on Advance Care Planning Time spent on advance care plannin
[2018-02-05] MEDS: SODIUM CHLORIDE FLUSH 0.9% 10 ML SYRINGE IVP PRN (14:58)
[2018-02-06] MEDS: SODIUM CHLORIDE FLUSH 0.9% 10 ML SYRINGE IVP SCH ×3 (00:20→18:45)
[2018-02-06 06:09] LABS: BASOPHILS # (AUTO) 0.1 10^3/uL (0.0-0.1); BASOPHILS % (AUTO) 1.7 %; EOSINOPHILS # (AUTO) 0.3 10^3/uL (0.0-0.7); EOSINOPHILS % (AUTO) 4.3 %; HGB - HEMOGLOBIN 14.5 g/dL (14.0-18.0); LYMPHOCYTES # (AUTO) 0.5 10^3/uL (1.5-3.5); LYMPHOCYTES % (AUTO) 7.3 %; MEAN CORPUSCULAR HEMOGLOBIN 30.8 pg (27.0-31.0); MEAN PLATELET VOLUME 7.7 fL (7.4-11.4); MONOCYTES # (AUTO) 0.8 10^3/uL (0.0-1.0); MONOCYTES % (AUTO) 11.3 %; NEUTROPHILS # (AUTO) 5.4 10^3/uL (1.5-6.6); NEUTROPHILS % (AUTO) 75.4 %; PLT - PLATELET COUNT 182 10^3/uL (130-450); RED BLOOD COUNT 4.72 10^6/uL (4.70-6.10); RED CELL DISTRIBUTION WIDTH 16.4 % (12.0-15.0); WHITE BLOOD COUNT 7.1 x10^3/uL (4.8-10.8)
[2018-02-06] MEDS: FUROSEMIDE 40 MG/4 ML VIAL IVP SCH ×2 (06:13→15:29)
[2018-02-06 06:21] LABS: ALBUMIN 3.5 g/dL (3.2-5.5); ALBUMIN/GLOBULIN RATIO 1.1 (1.0-2.2); BILIRUBIN,TOTAL 0.9 mg/dL (0.2-1.0); CALCIUM 9.3 mg/dL (8.5-10.3); TOTAL PROTEIN 6.7 g/dL (6.7-8.2)
[2018-02-06] MEDS: DABIGATRAN 75 MG CAPSULE PO SCH ×2 (09:34→21:46)
[2018-02-06] MEDS: FAMOTIDINE 20 MG TABLET PO SCH (09:34)
[2018-02-06] MEDS: LISINOPRIL 20 MG TABLET PO SCH ×2 (09:34→21:46)
[2018-02-06] MEDS: ALLOPURINOL 100 MG TABLET PO SCH (09:34)
[2018-02-06] MEDS: METOPROLOL SUCCINATE 50 MG TABLET PO SCH (09:37)
[2018-02-06] MEDS: SPIRONOLACTONE 25 MG TABLET PO SCH (09:37)
[2018-02-06] MEDS: SODIUM CHLORIDE FLUSH 0.9% 10 ML SYRINGE IVP PRN ×2 (09:41→15:33)
[2018-02-06] MEDS: POLYETHYLENE GLYCOL 3350 17 GM PACKET PO SCH (09:41)
--- NOTE | 2018-02-06 13:59 | PROVIDER PROGRESS NOTE ---
Subjective - Prog Note Date Prog Note Date: 02/06/18 - Subjective Pt reports feeling: Improved Subjective: pt report he feel improvement comparing when pt was admitted, feel less shortness of breath when when on exertion. He denies CP, fever, chill. Current Medications - Current Medications Current Medications: Active Medications Acetaminophen (Tylenol) 650 mg PO Q4HR PRN PRN Reason: Pain 1 to 4 Albuterol () 2.5 mg INH QID PRN PRN Reason: Wheezing Albuterol/Ipratropium (Duoneb) 3 ml INH RTQID PRN PRN Reason: Shortness of Air/Wheezing Allopurinol (Zyloprim) 100 mg PO DAILY [facility] Last Admin: 02/06/18 09:34 Dose: 100 mg Dabigatran (Pradaxa) 150 mg PO BID [facility] Last Admin: 02/06/18 09:34 Dose: 150 mg Famotidine (Pepcid) 20 mg PO DAILY [facility] Last Admin: 02/06/18 09:34 Dose: 20 mg Furosemide (Lasix Inj 40 Mg Vial) 40 mg IVP BIDDIURETIC [facility] Last Admin: 02/06/18 06:13 Dose: 40 mg Lisinopril (Zestril) 20 mg PO BID [facility] Last Admin: 02/06/18 09:34 Dose: 20 mg Metoprolol Succinate (Toprol Xl) 200 mg PO DAILY [facility] Last Admin: 02/06/18 09:37 Dose: 200 mg Ondansetron HCl (Zofran Inj) 4 mg IVP Q6HR PRN PRN Reason: Nausea / Vomiting Polyethylene Glycol (Miralax) 17 gm PO DAILY [facility] Last Admin: 02/06/18 09:41 Dose: Not Given Sodium Chloride (Normal Saline Flush 0.9%) 10 ml IVP PRN PRN PRN Reason: NEEDED PER PROVIDER ORDERS Last Admin: 02/06/18 09:41 Dose: 5 ml Sodium Chloride (Normal Saline Flush 0.9%) 10 ml IVP 0100,0900,1700 [facility] Last Admin: 02/06/18 06:24 Dose: 5 ml Spironolactone (Aldactone) 25 mg PO DAILY [facility] Last Admin: 02/06/18 09:37 Dose: 25 mg Zolpidem Tartrate (Ambien) 5 mg PO QPM PRN PRN Reason: Insomnia Allopurinol [Zyloprim] 100 mg PO DAILY 09/12/17 Dabigatran Etexilate Mesylate [Pradaxa] 150 mg PO BID 09/12/17 Lisinopril [Zestril] 20 mg PO BID 09/12/17 Furosemide [Lasix] 20 mg PO BIDDIURETIC 02/04/18 Metoprolol Succinate [Toprol Xl] 200 mg PO DAILY 02/04/18 Objective - Vital Signs/Intake & Output Reviewed Vital Signs: Yes Vital Signs: Vital Signs x48h Temp Pulse Resp BP Pulse Ox 02/06/18 13:00 37.0 C 112 H 16 114/73 92 02/06/18 12:58 18 94 02/06/18 07:56 36.8 C 56 L 18 122/99 H 97 02/06/18 06:12 127/89 H Intake & Output: Intake & Output 02/03/18 02/04/18 02/05/18 02/06/18 23:59 23:59 23:59 23:59 Intake Total 420 1660 550 Output Total 3200 4500 1550 Balance -2780 -2840 -1000 - Objective General Appearance: positive: No acute distress, Alert. negative: Lethargic Eyes Bilateral: positive: Normal inspection, PERRL, No lid inflammation, Conjunctivae nml ENT: positive: ENT inspection nml, Pharynx nml, No signs of dehydration. negative: Purulent nasal drainage, Pharyngeal erythema, Oral lesions Neck: positive: Nml inspection, Thyroid nml, No JVD, Trachea midline. negative: Thyromegaly, Lymphadenopathy (R), Lymphadenopathy (L), Stiff neck, Swelling/bruising, Tracheal deviation Respiratory: positive: Chest non-tender, No respiratory distress, Breath sounds nml. negative: Wheezes, Rales, Rhonchi Cardiovascular: positive: Regular rate & rhythm, No murmur, No gallop. negative: Irregularly irregular, Extrasystoles, Tachycardia, Bradycardia, JVD present, Systolic murmur, Diastolic murmur Peripheral Pulses: 2+ Radial (R), 2+ Radial (L), 2+ Dorsalis pedis (R), 2+ Dorsalis pedis (L) Abdomen: positive: Non-tender, No organomegaly, Nml bowel sounds, No distention. negative: Tenderness, Guarding, Rebound Back: positive: Nml inspection. negative: CVA tenderness (R), CVA tenderness (L) Skin: positive: Color nml, No rash, Warm, Dry. negative: Cyanosis, Diaphoresis, Pallor Extremities: positive: Non-tender, Full ROM, Nml appearance. negative: Calf tenderness, Joint swelling, Marika's sign/cords Neurologic/Psychiatric: positive: Oriented x3, Motor nml, Sensation nml, Mood/affect nml. negative: Weakness, Sensory loss, Facial droop, Slurred/abnml speech, Depressed mood/affect - Lab Results Fish Bones: 02/06/18 05:35 02/06/18 05:35 Other Labs: Lab Results x24hrs 02/06/18 02/06/18 02/06/18 Range/Units 05:35 05:35 05:35 WBC 7.1 (4.8-10.8) x10^3/uL RBC 4.72 (4.70-6.10) 10^6/uL Hgb 14.5 (14.0-18.0) g/dL Hct 45.3 (42.0-52.0) % MCV 96.0 H (80.0-94.0) fL MCH 30.8 (27.0-31.0) pg MCHC 32.0 (32.0-36.0) g/dL RDW 16.4 H (12.0-15.0) % Plt Count 182 (130-450) 10^3/uL MPV 7.7 (7.4-11.4) fL Neut # (Auto) 5.4 (1.5-6.6) 10^3/uL Lymph # (Auto) 0.5 L (1.5-3.5) 10^3/uL Faulk # (Auto) 0.8 (0.0-1.0) 10^3/uL Eos # (Auto) 0.3 (0.0-0.7) 10^3/uL Baso # (Auto) 0.1 (0.0-0.1) 10^3/uL Absolute Nucleated RBC 0.00 x10^3/uL Nucleated RBC % 0.0 /100WBC Sodium 139 (135-145) mmol/L Potassium 4.3 (3.5-5.0) mmol/L Chloride 96 L (101-111) mmol/L Carbon Dioxide 37 H (21-32) mmol/L Anion Gap 6.0 (6-13) BUN 36 H (6-20) mg/dL Creatinine 1.0 (0.6-1.2) mg/dL Estimated GFR (MDRD) 75 L (>89) Glucose 92 (70-100) mg/dL Calcium 9.3 (8.5-10.3) mg/dL Total Bilirubin 0.9 (0.2-1.0) mg/dL AST 22 (10-42) IU/L ALT 20 (10-60) IU/L Alkaline Phosphatase 75 (42-121) IU/L B-Natriuretic Peptide 972 H (5-100) pg/mL Total Protein 6.7 (6.7-8.2) g/dL Albumin 3.5 (3.2-5.5) g/dL Globulin 3.2 (2.1-4.2) g/dL Albumin/Globulin Ratio 1.1 (1.0-2.2) ABX Reporting Has patient been on IV antibiotics over the past 48 hours?: No Assessment/Plan - Problem List (1) CHF exacerbation Impression: Impression: 02/06 pt feel improvement for SOB, his BNP is 970 today comparing yesterday 2500 continue IV of Lasix daily lab monitor continue Fluid restriction, daily weight, low sodium diet 02/05 pt feel better, less shortness of breath on exertion, BNP is down to 2500 from 4700 discussed with pt about new ECHO finding, EF 20-25%. pt recognize the severity of his heart condition, advise follow up his re dye hand very closely. pt also consider palliative care consult with palliative care continue IV of Lasix continue Fluid restriction, daily weight, low sodium diet continue tele, vital monitor pt present PNA, orthopnea, weight gain then SOB, and significant elevated BNP, recurrent CHF exacerbation., gain a few pound of weight before he had symptoms. pt's last ECHO reveals 35% EF Lasix IV of 40 mg bid ECHO, follow up tele, vital monitor daily lab monitor fluid restriction daily weight lower sodium cardiac diet (2) Hypoxia Conclusion/Plan: 02/05 92% sats on 1 liter of O2. discuss with pt about the finding of his lung, which can affect his breathing and O2 sats, advise pt follow up his pulmonologis t appointment continue RT treatment 02/05 96% sats on 3 liter of O2 discussed with pt about the finding on chest CT, advise pt follow up his research administrator very closely. pt state he has appointment with his research administrator on end of continue RT treatment as needed pt present 87% sats at room air in ER. pt has hx of sarcoidosis, hx of cigarette smoker, CXR indicates spiculated ovoid. order PRN duoneb, albuteral O2 supplement PRN CT of chest, will followup (3) Afib Conclusion/Plan: stable, continue tele and vital monitor stable, HR is around 80 continue home meds beta-cary continue Pradaxa tele, vital monitor (4) HTN (hypertension) Conclusion/Plan: stable now, resume home meds (5) Sarcoidosis Conclusion/Plan: pt followup his research administrator now, encourage pt continue, pt will have CT of chest and follow up, since CXR is not clearly for etiology
[2018-02-07] MEDS: SODIUM CHLORIDE FLUSH 0.9% 10 ML SYRINGE IVP SCH ×3 (00:50→16:10)
[2018-02-07 05:08] LABS: BASOPHILS # (AUTO) 0.1 10^3/uL (0.0-0.1); BASOPHILS % (AUTO) 0.6 %; EOSINOPHILS # (AUTO) 0.2 10^3/uL (0.0-0.7); EOSINOPHILS % (AUTO) 2.6 %; HGB - HEMOGLOBIN 14.1 g/dL (14.0-18.0); LYMPHOCYTES # (AUTO) 0.7 10^3/uL (1.5-3.5); LYMPHOCYTES % (AUTO) 8.9 %; MEAN CORPUSCULAR HEMOGLOBIN 30.6 pg (27.0-31.0); MEAN CORPUSCULAR HGB CONC 32.1 g/dL (32.0-36.0); MEAN CORPUSCULAR VOLUME 95.4 fL (80.0-94.0); MEAN PLATELET VOLUME 7.8 fL (7.4-11.4); MONOCYTES % (AUTO) 12.4 %; NEUTROPHILS # (AUTO) 6.4 10^3/uL (1.5-6.6); NEUTROPHILS % (AUTO) 75.5 %; PLT - PLATELET COUNT 189 10^3/uL (130-450); RED CELL DISTRIBUTION WIDTH 16.1 % (12.0-15.0); WHITE BLOOD COUNT 8.4 x10^3/uL (4.8-10.8)
[2018-02-07 05:21] LABS: ALBUMIN 3.6 g/dL (3.2-5.5); ALBUMIN/GLOBULIN RATIO 1.2 (1.0-2.2); BILIRUBIN,TOTAL 0.7 mg/dL (0.2-1.0); CALCIUM 9.6 mg/dL (8.5-10.3); TOTAL PROTEIN 6.6 g/dL (6.7-8.2)
[2018-02-07] MEDS: FUROSEMIDE 40 MG/4 ML VIAL IVP SCH (05:47)
[2018-02-07] MEDS: DABIGATRAN 75 MG CAPSULE PO SCH ×2 (08:26→20:49)
[2018-02-07] MEDS: ALLOPURINOL 100 MG TABLET PO SCH (08:26)
[2018-02-07] MEDS: FAMOTIDINE 20 MG TABLET PO SCH (08:26)
[2018-02-07] MEDS: METOPROLOL SUCCINATE 50 MG TABLET PO SCH (08:27)
[2018-02-07] MEDS: POLYETHYLENE GLYCOL 3350 17 GM PACKET PO SCH (08:27)
[2018-02-07] MEDS: LISINOPRIL 20 MG TABLET PO SCH ×2 (08:27→20:49)
[2018-02-07] MEDS: SPIRONOLACTONE 25 MG TABLET PO SCH (08:28)
--- NOTE | 2018-02-07 13:50 | PROVIDER PROGRESS NOTE ---
Subjective - Prog Note Date Prog Note Date: 02/07/18 - Subjective Pt reports feeling: Improved Subjective: pt today state he feel great, shortness of breath is great improved when on exertion. But today pt's creatinine increase to 2 from 1. pt report he had renal failure in his history. otherwise he denies other complaints Current Medications - Current Medications Current Medications: Active Medications Acetaminophen (Tylenol) 650 mg PO Q4HR PRN PRN Reason: Pain 1 to 4 Albuterol () 2.5 mg INH QID PRN PRN Reason: Wheezing Albuterol/Ipratropium (Duoneb) 3 ml INH RTQID PRN PRN Reason: Shortness of Air/Wheezing Allopurinol (Zyloprim) 100 mg PO DAILY [facility] Last Admin: 02/07/18 08:26 Dose: 100 mg Dabigatran (Pradaxa) 150 mg PO BID [facility] Last Admin: 02/07/18 08:26 Dose: 150 mg Famotidine (Pepcid) 20 mg PO DAILY [facility] Last Admin: 02/07/18 08:26 Dose: 20 mg Furosemide (Lasix Inj 20mg Vial) 20 mg IVP BIDDIURETIC [facility] Lisinopril (Zestril) 20 mg PO BID [facility] Last Admin: 02/07/18 08:27 Dose: 20 mg Metoprolol Succinate (Toprol Xl) 200 mg PO DAILY [facility] Last Admin: 02/07/18 08:27 Dose: 200 mg Ondansetron HCl (Zofran Inj) 4 mg IVP Q6HR PRN PRN Reason: Nausea / Vomiting Polyethylene Glycol (Miralax) 17 gm PO DAILY [facility] Last Admin: 02/07/18 08:27 Dose: Not Given Sodium Chloride (Normal Saline Flush 0.9%) 10 ml IVP PRN PRN PRN Reason: NEEDED PER PROVIDER ORDERS Last Admin: 02/06/18 15:33 Dose: 10 ml Sodium Chloride (Normal Saline Flush 0.9%) 10 ml IVP 0100,0900,1700 [facility] Last Admin: 02/07/18 08:28 Dose: 5 ml Spironolactone (Aldactone) 25 mg PO DAILY [facility] Last Admin: 02/07/18 08:28 Dose: 25 mg Zolpidem Tartrate (Ambien) 5 mg PO QPM PRN PRN Reason: Insomnia Allopurinol [Zyloprim] 100 mg PO DAILY 09/12/17 Dabigatran Etexilate Mesylate [Pradaxa] 150 mg PO BID 09/12/17 Lisinopril [Zestril] 20 mg PO BID 09/12/17 Furosemide [Lasix] 20 mg PO BIDDIURETIC 02/04/18 Metoprolol Succinate [Toprol Xl] 200 mg PO DAILY 02/04/18 Objective - Vital Signs/Intake & Output Reviewed Vital Signs: Yes Vital Signs: Vital Signs x48h Temp Pulse Pulse Resp BP Pulse Ox 02/07/18 13:00 36.6 C 43 L 16 87/60 L 95 02/07/18 07:57 36.4 C L 86 19 110/74 99 02/07/18 07:39 110 H 18 Intake & Output: Intake & Output 02/04/18 02/05/18 02/06/18 02/07/18 23:59 23:59 23:59 23:59 Intake Total 420 1660 936 600 Output Total 3200 4500 1775 100 Balance -2780 -2840 -839 500 - Objective General Appearance: positive: No acute distress, Alert. negative: Lethargic Eyes Bilateral: positive: Normal inspection, PERRL, No lid inflammation, Conjunctivae nml ENT: positive: ENT inspection nml, Pharynx nml, No signs of dehydration. negative: Purulent nasal drainage, Pharyngeal erythema, Oral lesions Neck: positive: Nml inspection, Thyroid nml, No JVD, Trachea midline. negative: Thyromegaly, Lymphadenopathy (R), Lymphadenopathy (L), Stiff neck, Swelling/bruising, Tracheal deviation Respiratory: positive: Chest non-tender, No respiratory distress, Breath sounds nml. negative: Wheezes, Rales, Rhonchi Cardiovascular: positive: Regular rate & rhythm, No murmur, No gallop. negative: Irregularly irregular, Extrasystoles, Tachycardia, Bradycardia, JVD present, Systolic murmur, Diastolic murmur Peripheral Pulses: 2+ Radial (R), 2+ Radial (L), 2+ Dorsalis pedis (R), 2+ Dorsalis pedis (L) Abdomen: positive: Non-tender, No organomegaly, Nml bowel sounds, No distention. negative: Tenderness, Guarding, Rebound Back: positive: Nml inspection. negative: CVA tenderness (R), CVA tenderness (L) Skin: positive: Color nml, No rash, Warm, Dry. negative: Cyanosis, Diaphoresis, Pallor Extremities: positive: Non-tender, Full ROM, Nml appearance. negative: Calf tenderness, Joint swelling, Marika's sign/cords Neurologic/Psychiatric: positive: Oriented x3, Motor nml, Sensation nml, Mood/affect nml. negative: Weakness, Sensory loss, Facial droop, Slurred/abnml speech, Depressed mood/affect - Lab Results Fish Bones: 02/07/18 04:40 02/07/18 04:40 Other Labs: Lab Results x24hrs 02/07/18 02/07/18 02/07/18 Range/Units 04:40 04:40 04:40 WBC 8.4 (4.8-10.8) x10^3/uL RBC 4.60 L (4.70-6.10) 10^6/uL Hgb 14.1 (14.0-18.0) g/dL Hct 43.9 (42.0-52.0) % MCV 95.4 H (80.0-94.0) fL MCH 30.6 (27.0-31.0) pg MCHC 32.1 (32.0-36.0) g/dL RDW 16.1 H (12.0-15.0) % Plt Count 189 (130-450) 10^3/uL MPV 7.8 (7.4-11.4) fL Neut # (Auto) 6.4 (1.5-6.6) 10^3/uL Lymph # (Auto) 0.7 L (1.5-3.5) 10^3/uL Dawes # (Auto) 1.0 (0.0-1.0) 10^3/uL Eos # (Auto) 0.2 (0.0-0.7) 10^3/uL Baso # (Auto) 0.1 (0.0-0.1) 10^3/uL Absolute Nucleated RBC 0.01 x10^3/uL Nucleated RBC % 0.1 /100WBC Sodium 137 (135-145) mmol/L Potassium 4.3 (3.5-5.0) mmol/L Chloride 93 L (101-111) mmol/L Carbon Dioxide 38 H (21-32) mmol/L Anion Gap 6.0 (6-13) BUN 50 H (6-20) mg/dL Creatinine 2.0 H (0.6-1.2) mg/dL Estimated GFR (MDRD) 34 L (>89) Glucose 156 H (70-100) mg/dL Calcium 9.6 (8.5-10.3) mg/dL Total Bilirubin 0.7 (0.2-1.0) mg/dL AST 19 (10-42) IU/L ALT 18 (10-60) IU/L Alkaline Phosphatase 69 (42-121) IU/L B-Natriuretic Peptide 447 H (5-100) pg/mL Total Protein 6.6 L (6.7-8.2) g/dL Albumin 3.6 (3.2-5.5) g/dL Globulin 3.0 (2.1-4.2) g/dL Albumin/Globulin Ratio 1.2 (1.0-2.2) ABX Reporting Has patient been on IV antibiotics over the past 48 hours?: No Assessment/Plan - Problem List (1) Hypoxia Impression: CHF exacerbation Impression: 02/07 pt feel much better, BNP is 447 today from previous over 4000 continue lasix 40 mg daily IV from bid, because over-diuretics affect renal function. continue vital monitor and daily lab monitor 02/06 pt feel improvement for SOB, his BNP is 970 today comparing yesterday 2500 continue IV of Lasix daily lab monitor continue Fluid restriction, daily weight, low sodium diet 02/05 pt feel better, less shortness of breath on exertion, BNP is down to 2500 from 4700 discussed with pt about new ECHO finding, EF 20-25%. pt recognize the severity of his heart condition, advise follow up his dry cell battery assembler very closely. pt also consider palliative care consult with palliative care continue IV of Lasix continue Fluid restriction, daily weight, low sodium diet continue tele, vital monitor pt present PNA, orthopnea, weight gain then SOB, and significant elevated BNP, recurrent CHF exacerbation., gain a few pound of weight before he had symptoms. pt's last ECHO reveals 35% EF Lasix IV of 40 mg bid ECHO, follow up tele, vital monitor daily lab monitor fluid restriction daily weight lower sodium cardiac diet (2) Hypoxia Conclusion/Plan: resolved. pt has 98% sats on room air 02/05 92% sats on 1 liter of O2. discuss with pt about the finding of his lung, which can affect his breathing and O2 sats, advise pt follow up his nuclear supervising operator appointment continue RT treatment 02/05 96% sats on 3 liter of O2 discussed with pt about the finding on chest CT, advise pt follow up his nuclear supervising operator very closely. pt state he has appointment with his nuclear supervising operator on end of continue RT treatment as needed pt present 87% sats at room air in ER. pt has hx of sarcoidosis, hx of cigarette smoker, CXR indicates spiculated ovoid. order PRN duoneb, albuteral O2 supplement PRN CT of chest, will followup (3) Afib Conclusion/Plan: stable, continue tele and vital monitor stable, HR is around 80 continue home meds beta-cary continue Pradaxa tele, vital monitor (4) hypotension pt's SBP is down to 86, HR is under 60. pt is asymptomatic, closely vital monitor pt, may consider reduce of his beta-cary dosage Conclusion/Plan: stable now, resume home meds (5) Sarcoidosis Conclusion/Plan: pt followup his nuclear supervising operator now, encourage pt continue, pt will have CT of chest and follow up, since CXR is not clearly for etiology (6) acute renal injury pt has hx of renal failure. today his Creatinine to 2 from 1 on yesterday. it appear from over-diuretics reduce lasix bid to daily, increase Fluid restriction volume from 1800 to 2000 daily monitor lab, vital monitor (7) CHF exacerbation Impression: (1) CHF exacerbation Impression: Impression: 02/06 pt feel improvement for SOB, his BNP is 970 today comparing yesterday 2500 continue IV of Lasix daily lab monitor continue Fluid restriction, daily weight, low sodium diet 02/05 pt feel better, less shortness of breath on exertion, BNP is down to 2500 from 4700 discussed with pt about new ECHO finding, EF 20-25%. pt recognize the severity of his heart condition, advise follow up his dry cell battery assembler very closely. pt also consider palliative care consult with palliative care continue IV of Lasix continue Fluid restriction, daily weight, low sodium diet continue tele, vital monitor pt present PNA, orthopnea, weight gain then SOB, and significant elevated BNP, recurrent CHF exacerbation., gain a few pound of weight before he had symptoms. pt's last ECHO reveals 35% EF Lasix IV of 40 mg bid ECHO, follow up tele, vital monitor daily lab monitor fluid restriction daily weight lower sodium cardiac diet (2) Hypoxia Conclusion/Plan: 02/05 92% sats on 1 liter of O2. discuss with pt about the finding of his lung, which can affect his breathing and O2 sats, advise pt follow up his nuclear supervising operator appointment continue RT treatment 02/05 96% sats on 3 liter of O2 discussed with pt about the finding on chest CT, advise pt follow up his nuclear supervising operator very closely. pt state he has appointment with his nuclear supervising operator on end of continue RT treatment as needed pt present 87% sats at room air in ER. pt has hx of sarcoidosis, hx of cigarette smoker, CXR indicates spiculated ovoid. order PRN duoneb, albuteral O2 supplement PRN CT of chest, will followup (3) Afib Conclusion/Plan: stable, continue tele and vital monitor stable, HR is around 80 continue home meds beta-cary continue Pradaxa tele, vital monitor (4) HTN (hypertension) Conclusion/Plan: stable now, resume home meds (5) Sarcoidosis Conclusion/Plan: pt followup his nuclear supervising operator now, encourage pt continue, pt will have CT of chest and follow up, since CXR is not clearly for etiology
[2018-02-07] MEDS ORDERED: FUROSEMIDE 40 MG/4 ML VIAL IVP SCH (14:00)
[2018-02-08] MEDS: SODIUM CHLORIDE FLUSH 0.9% 10 ML SYRINGE IVP SCH ×3 (00:17→20:24)
[2018-02-08 05:08] LABS: BASOPHILS # (AUTO) 0.1 10^3/uL (0.0-0.1); BASOPHILS % (AUTO) 2.2 %; EOSINOPHILS # (AUTO) 0.3 10^3/uL (0.0-0.7); HGB - HEMOGLOBIN 13.3 g/dL (14.0-18.0); LYMPHOCYTES # (AUTO) 0.7 10^3/uL (1.5-3.5); LYMPHOCYTES % (AUTO) 11.4 %; MEAN CORPUSCULAR HEMOGLOBIN 30.6 pg (27.0-31.0); MEAN CORPUSCULAR HGB CONC 32.6 g/dL (32.0-36.0); MEAN CORPUSCULAR VOLUME 93.8 fL (80.0-94.0); MEAN PLATELET VOLUME 7.6 fL (7.4-11.4); MONOCYTES % (AUTO) 15.5 %; NEUTROPHILS # (AUTO) 4.3 10^3/uL (1.5-6.6); NEUTROPHILS % (AUTO) 66.9 %; PLT - PLATELET COUNT 172 10^3/uL (130-450); RED BLOOD COUNT 4.36 10^6/uL (4.70-6.10); RED CELL DISTRIBUTION WIDTH 16.3 % (12.0-15.0); WHITE BLOOD COUNT 6.4 x10^3/uL (4.8-10.8)
[2018-02-08 05:18] LABS: CALCIUM 9.5 mg/dL (8.5-10.3); MAGNESIUM 2.3 mg/dL (1.7-2.8)
[2018-02-08] MEDS: FUROSEMIDE 20 MG TABLET PO SCH ×2 (05:28→15:02)
[2018-02-08] MEDS ORDERED: FUROSEMIDE 20 MG/2 ML VIAL IVP SCH (06:00)
[2018-02-08] MEDS: ALLOPURINOL 100 MG TABLET PO SCH (10:22)
[2018-02-08] MEDS: DABIGATRAN 75 MG CAPSULE PO SCH ×2 (10:23→20:24)
[2018-02-08] MEDS: LISINOPRIL 5 MG TABLET PO SCH ×2 (10:23→20:24)
[2018-02-08] MEDS: FAMOTIDINE 20 MG TABLET PO SCH (10:23)
[2018-02-08] MEDS: POLYETHYLENE GLYCOL 3350 17 GM PACKET PO SCH (10:24)
[2018-02-08] MEDS: SPIRONOLACTONE 25 MG TABLET PO SCH (10:24)
[2018-02-08] MEDS: METOPROLOL SUCCINATE 50 MG TABLET PO SCH (10:24)
--- NOTE | 2018-02-08 13:50 | PROVIDER PROGRESS NOTE ---
Subjective - Prog Note Date Prog Note Date: 02/08/18 - Subjective Pt reports feeling: Improved Subjective: pt report he feel good, SOB is much better. but pt's creatinine is at 2. pt's baseline creatinine was 1. Current Medications - Current Medications Current Medications: Active Medications Acetaminophen (Tylenol) 650 mg PO Q4HR PRN PRN Reason: Pain 1 to 4 Albuterol () 2.5 mg INH QID PRN PRN Reason: Wheezing Albuterol/Ipratropium (Duoneb) 3 ml INH RTQID PRN PRN Reason: Shortness of Air/Wheezing Allopurinol (Zyloprim) 100 mg PO DAILY [facility] Last Admin: 02/08/18 10:22 Dose: 100 mg Dabigatran (Pradaxa) 150 mg PO BID [facility] Last Admin: 02/08/18 10:23 Dose: 150 mg Famotidine (Pepcid) 20 mg PO DAILY [facility] Last Admin: 02/08/18 10:23 Dose: 20 mg Furosemide (Lasix) 20 mg PO BIDDIURETIC [facility] Last Admin: 02/08/18 05:28 Dose: 20 mg Lisinopril (Zestril) 5 mg PO BID [facility] Last Admin: 02/08/18 10:23 Dose: 5 mg Metoprolol Succinate (Toprol Xl) 200 mg PO DAILY [facility] Last Admin: 02/08/18 10:24 Dose: 200 mg Ondansetron HCl (Zofran Inj) 4 mg IVP Q6HR PRN PRN Reason: Nausea / Vomiting Polyethylene Glycol (Miralax) 17 gm PO DAILY [facility] Last Admin: 02/08/18 10:24 Dose: Not Given Sodium Chloride (Normal Saline Flush 0.9%) 10 ml IVP PRN PRN PRN Reason: NEEDED PER PROVIDER ORDERS Last Admin: 02/06/18 15:33 Dose: 10 ml Sodium Chloride (Normal Saline Flush 0.9%) 10 ml IVP 0100,0900,1700 [facility] Last Admin: 02/08/18 10:25 Dose: 10 ml Spironolactone (Aldactone) 25 mg PO DAILY [facility] Last Admin: 02/08/18 10:24 Dose: 25 mg Zolpidem Tartrate (Ambien) 5 mg PO QPM PRN PRN Reason: Insomnia Allopurinol [Zyloprim] 100 mg PO DAILY 09/12/17 Dabigatran Etexilate Mesylate [Pradaxa] 150 mg PO BID 09/12/17 Lisinopril [Zestril] 20 mg PO BID 09/12/17 Furosemide [Lasix] 20 mg PO BIDDIURETIC 02/04/18 Metoprolol Succinate [Toprol Xl] 200 mg PO DAILY 02/04/18 Objective - Vital Signs/Intake & Output Reviewed Vital Signs: Yes Vital Signs: Vital Signs x48h Temp Pulse Pulse Resp BP Pulse Ox 02/08/18 12:46 36.8 C 86 16 99/72 96 02/08/18 10:21 109 H 133/99 H 02/08/18 08:21 36.4 C L 81 18 101/80 96 02/08/18 07:45 36.6 C 87 15 96 Intake & Output: Intake & Output 02/05/18 02/06/18 02/07/18 02/08/18 23:59 23:59 23:59 23:59 Intake Total 2514 823 7917 480 Output Total 4500 1775 800 975 Balance -2840 -839 622 -495 - Objective General Appearance: positive: No acute distress, Alert. negative: Lethargic Eyes Bilateral: positive: Normal inspection, PERRL, No lid inflammation, Conjunctivae nml ENT: positive: ENT inspection nml, Pharynx nml, No signs of dehydration. negative: Purulent nasal drainage, Pharyngeal erythema, Oral lesions Neck: positive: Nml inspection, Thyroid nml, No JVD, Trachea midline. negative: Thyromegaly, Lymphadenopathy (R), Lymphadenopathy (L), Stiff neck, Swelling/bruising, Tracheal deviation Respiratory: positive: Chest non-tender, No respiratory distress, Breath sounds nml. negative: Wheezes, Rales, Rhonchi Cardiovascular: positive: Regular rate & rhythm, No murmur, No gallop. negative: Irregularly irregular, Extrasystoles, Tachycardia, Bradycardia, JVD present, Systolic murmur, Diastolic murmur Peripheral Pulses: 2+ Radial (R), 2+ Radial (L), 2+ Dorsalis pedis (R), 2+ Dorsalis pedis (L) Abdomen: positive: Non-tender, No organomegaly, Nml bowel sounds, No distention. negative: Tenderness, Guarding, Rebound Back: positive: Nml inspection. negative: CVA tenderness (R), CVA tenderness (L) Skin: positive: Color nml, No rash, Warm, Dry. negative: Cyanosis, Diaphoresis, Pallor Extremities: positive: Non-tender, Full ROM, Nml appearance. negative: Calf tenderness, Joint swelling, Marika's sign/cords Neurologic/Psychiatric: positive: Oriented x3, Motor nml, Sensation nml, Mood/affect nml. negative: Weakness, Sensory loss, Facial droop, Slurred/abnml speech, Depressed mood/affect - Lab Results Fish Bones: 02/08/18 04:48 02/08/18 04:48 Other Labs: Lab Results x24hrs 02/08/18 02/08/18 02/08/18 Range/Units 04:48 04:48 04:48 WBC 6.4 (4.8-10.8) x10^3/uL RBC 4.36 L (4.70-6.10) 10^6/uL Hgb 13.3 L (14.0-18.0) g/dL Hct 40.9 L (42.0-52.0) % MCV 93.8 (80.0-94.0) fL MCH 30.6 (27.0-31.0) pg MCHC 32.6 (32.0-36.0) g/dL RDW 16.3 H (12.0-15.0) % Plt Count 172 (130-450) 10^3/uL MPV 7.6 (7.4-11.4) fL Neut # (Auto) 4.3 (1.5-6.6) 10^3/uL Lymph # (Auto) 0.7 L (1.5-3.5) 10^3/uL [place] # (Auto) 1.0 (0.0-1.0) 10^3/uL Eos # (Auto) 0.3 (0.0-0.7) 10^3/uL Baso # (Auto) 0.1 (0.0-0.1) 10^3/uL Absolute Nucleated RBC 0.00 x10^3/uL Nucleated RBC % 0.0 /100WBC Sodium 136 (135-145) mmol/L Potassium 4.3 (3.5-5.0) mmol/L Chloride 93 L (101-111) mmol/L Carbon Dioxide 36 H (21-32) mmol/L Anion Gap 7.0 (6-13) BUN 61 H (6-20) mg/dL Creatinine 2.0 H (0.6-1.2) mg/dL Estimated GFR (MDRD) 34 L (>89) Glucose 100 (70-100) mg/dL Calcium 9.5 (8.5-10.3) mg/dL Magnesium 2.3 (1.7-2.8) mg/dL B-Natriuretic Peptide 285 H (5-100) pg/mL ABX Reporting Has patient been on IV antibiotics over the past 48 hours?: No Assessment/Plan - Problem List (1) CHF exacerbation Impression: Impression: 02/08 pt's BNP is 280, pt report his symptom SOB is much improved. but pt still has YANICK gently hydration pt with decrease fluid restrict reduce Lasix to home regimen PO Lasix 20 mg bid check BNP tele and vital monitor 02/07 pt feel much better, BNP is 447 today from previous over 4000 continue lasix 40 mg daily IV from bid, because over-diuretics affect renal function. continue vital monitor and daily lab monitor 02/06 pt feel improvement for SOB, his BNP is 970 today comparing yesterday 2500 continue IV of Lasix daily lab monitor continue Fluid restriction, daily weight, low sodium diet 02/05 pt feel better, less shortness of breath on exertion, BNP is down to 2500 from 4700 discussed with pt about new ECHO finding, EF 20-25%. pt recognize the severity of his heart condition, advise follow up his six sigma black trainer very closely. pt also consider palliative care consult with palliative care continue IV of Lasix continue Fluid restriction, daily weight, low sodium diet continue tele, vital monitor pt present PNA, orthopnea, weight gain then SOB, and significant elevated BNP, recurrent CHF exacerbation., gain a few pound of weight before he had symptoms. pt's last ECHO reveals 35% EF Lasix IV of 40 mg bid ECHO, follow up tele, vital monitor daily lab monitor fluid restriction daily weight lower sodium cardiac diet (2) Hypoxia Conclusion/Plan: resolved. pt has 98% sats on room air 02/05 92% sats on 1 liter of O2. discuss with pt about the finding of his lung, which can affect his breathing and O2 sats, advise pt follow up his canvas shrinker appointment continue RT treatment 02/05 96% sats on 3 liter of O2 discussed with pt about the finding on chest CT, advise pt follow up his canvas shrinker very closely. pt state he has appointment with his canvas shrinker on end of continue RT treatment as needed pt present 87% sats at room air in ER. pt has hx of sarcoidosis, hx of cigarette smoker, CXR indicates spiculated ovoid. order PRN duoneb, albuteral O2 supplement PRN CT of chest, will followup (3) Afib Conclusion/Plan: stable, continue tele and vital monitor stable, HR is around 80 continue home meds beta-cary continue Pradaxa tele, vital monitor (4) hypotension pt's SBP is down to 86, HR is under 60. pt is asymptomatic, closely vital monitor pt, may consider reduce of his beta-cary dosage Conclusion/Plan: stable now, resume home meds (5) Sarcoidosis Conclusion/Plan: pt followup his canvas shrinker now, encourage pt continue, pt will have CT of chest and follow up, since CXR is not clearly for etiology (6) acute renal injury 02/08 creatinine still is 2 increase fluid to 2200ml daily decrease Lasix to 20 mg PO daily check lab pt has hx of renal failure. today his Creatinine to 2 from 1 on yesterday. it appear from over-diuretics reduce lasix bid to daily, increase Fluid restriction volume from 1800 to 2000 daily monitor lab, vital monitor
--- NOTE | 2018-02-08 19:47 | CONSULTATION NOTE ---
Palliative Care Consultation - Referral Referring Provider: Steffen MUELLER Time of Visit: 10:45-11:45 Referral setting: Hospitalized patient Referral Reason: CHF/Sarcoidosis/Goals of Care - Information Sources Records reviewed: Previous records reviewed History/Review of Systems obtained from: Patient Exam limitations: No limitations - History of Present Illness Brief History of Present Illness: This is a 62-year-old gentleman who presented with [facility] with increased shortness of breath, increased swelling in his legs, and increased difficulty with weakness. He does have known history of CHF, his past ejection fraction in September on admit was 35-40%, this was down from previous measurement of 65%, and th is admission shows poor left ventricular function at 20-25%. His BNP continues to improve it to 85 today, but continues with compromised kidney function of a BUN of 61, 2.0 creatinine and a GFR of 34. 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 Palliative care has been asked to meet with him secondary to the seriousness of his illness, and discussed goals of care. Medical/Surgical History - Past Medical History Cardiovascular: reports: Congestive heart failure, Hypertension, Atrial fibrillation, Arrhythmia (tachybrady syndrome requiring pacemaker placement) Respiratory: reports: Other (sarcoidois 2007). denies: CPAP use (has been recommentded in past and discontinued by patient) Neuro: None Endocrine/Autoimmune: reports: None GI: reports: Colon polyps : reports: Frequency HEENT: reports: None Psych: reports: None Musculoskeletal: reports: Chronic back pain Derm: reports: None MRSA Hx?: No - Past Surgical History General: reports: Colonoscopy Cardiovascular: reports: Pacemaker HEENT: reports: Tonsil/Adenoidectomy - Substance History Use: Uses substance without health or social issues: Tobacco (hx), Alcohol (hx not currently drinking), Cannabis (occasional use) Social History - Living Situation Living arrangement: Homeless Living Situation: Alone Support System: Patient actually lives out of his van, he does have his stuff stored in his parents home. He is working on [email or web address] and a play set up for the winter. 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 He was 40 years ago. Music is his passion and he likes to play the ball and goes. He perceives his quality of life is fairly good, but currently does have a girlfriend, his mom does have dementia, his dad is getting ready to sell the house. He is fairly pragmatic sort of janee, he does have a son in [place] and a daughter in [place] who he is close to. Family History - Family History Family History: Mother: Alive and Well, Alzheimer's Disease, Father: Alive and Well, CAD Medications/Allergies - Medications Active Medication List: Active Medications Acetaminophen (Tylenol) 650 mg PO Q4HR PRN PRN Reason: Pain 1 to 4 Albuterol () 2.5 mg INH QID PRN PRN Reason: Wheezing Albuterol/Ipratropium (Duoneb) 3 ml INH RTQID PRN PRN Reason: Shortness of Air/Wheezing Allopurinol (Zyloprim) 100 mg PO DAILY [facility] Last Admin: 02/08/18 10:22 Dose: 100 mg Dabigatran (Pradaxa) 150 mg PO BID [facility] Last Admin: 02/08/18 10:23 Dose: 150 mg Famotidine (Pepcid) 20 mg PO DAILY [facility] Last Admin: 02/08/18 10:23 Dose: 20 mg Furosemide (Lasix) 20 mg PO BIDDIURETIC [facility] Last Admin: 02/08/18 15:02 Dose: 20 mg Lisinopril (Zestril) 5 mg PO BID [facility] Last Admin: 02/08/18 10:23 Dose: 5 mg Metoprolol Succinate (Toprol Xl) 200 mg PO DAILY [facility] Last Admin: 02/08/18 10:24 Dose: 200 mg Ondansetron HCl (Zofran Inj) 4 mg IVP Q6HR PRN PRN Reason: Nausea / Vomiting Polyethylene Glycol (Miralax) 17 gm PO DAILY [facility] Last Admin: 02/08/18 10:24 Dose: Not Given Sodium Chloride (Normal Saline Flush 0.9%) 10 ml IVP PRN PRN PRN Reason: NEEDED PER PROVIDER ORDERS Last Admin: 02/06/18 15:33 Dose: 10 ml Sodium Chloride (Normal Saline Flush 0.9%) 10 ml IVP 0100,0900,1700 [facility] Last Admin: 02/08/18 10:25 Dose: 10 ml Spironolactone (Aldactone) 25 mg PO DAILY [facility] Last Admin: 02/08/18 10:24 Dose: 25 mg Zolpidem Tartrate (Ambien) 5 mg PO QPM PRN PRN Reason: Insomnia Allopurinol [Zyloprim] 100 mg PO DAILY 09/12/17 Dabigatran Etexilate Mesylate [Pradaxa] 150 mg PO BID 09/12/17 Lisinopril [Zestril] 20 mg PO BID 09/12/17 Furosemide [Lasix] 20 mg PO BIDDIURETIC 02/04/18 Metoprolol Succinate [Toprol Xl] 200 mg PO DAILY 02/04/18 - Allergies Allergies/Adverse Reactions: Allergies Allergy/AdvReac Type Severity Reaction Status Date / Time No Known Drug Allergies Allergy Verified 02/04/18 13:16 Review of Systems - Constitutional Constitutional: reports: Fatigue, Weight loss (patient reports originally when dx with sarcoidosis was on prednisone for a year and was up t 350 pounds; has lost about 100 pounds reports on purpose and continues to loose weight). denies: Fever - Ears, Nose & Throat Ears, Nose & Throat: reports: Other (dentures) - Cardiovascular Cardiovascular: reports: Edema (prior to admit), Exertional dyspnea, Decr. exercise tolerance - Respiratory Respiratory: reports: SOB at rest (improved), SOB with exertion - Gastrointestinal Gastrointestinal: reports: Good appetite. denies: Constipation, Nausea - Genitourinary Genitourinary: reports: Frequency - Musculoskeletal Musculoskeletal: reports: Back pain, Stiffness, Limited range of motion, Muscle weakness - Integumentary Integumentary: reports: Dryness - Neurological Neurological: reports: General weakness - Psychiatric Psychiatric: denies: Depression, Anxiety - Hematologic/Lymphatic Hematologic/Lymphatic: denies: Recurrent infections - All Other Systems All Other Systems: reports: Reviewed and negative Physical Exam - Vital Signs Vital Signs: Vital Signs x48h Temp Pulse Resp BP BP Pulse Ox 02/08/18 19:10 105 H 18 111/70 100 02/08/18 15:20 36.6 C 91 16 104/78 98 02/08/18 12:46 36.8 C 86 16 99/72 96 - Physical Exam General Appearance: positive: No acute distress Eyes Bilateral: positive: Normal inspection ENT: positive: No signs of dehydration Neck: positive: No JVD, Trachea midline Cardiovascular: positive: Regular rate & rhythm Respiratory: positive: Diminished throughout Abdomen: positive: Soft Skin: positive: Pallor, Dryness Extremities: positive: Pedal edema (trace up to midcalf) Neurologic/Psychiatric: positive: Oriented x3, Mood/affect nml Palliative Care - POLST Patient has POLST: No POLST Status: Full Code Pain: Pain unchanged, Location (chronic back pain) Tiredness/Fatigue: Moderate (4-6) Drowsiness/Sedation: Mild (1-3) Performance Status: Patient does report increasing functional status since diuresis. Is feeling better as far shortness of breath, but does have a baseline activity intolerance. Needs to pace himself this short distances, and space out activities. He is quite anxious to get back to his van and he is looking at transitioning to getting his self set up at his new home setting. "Sitting here is making him crazy". - Palliative Care Discussion: Patient's understanding is of his disease is that his heart failure has worsened, but he does feel better. He does report dizziness with standing and increased shortness of breath from his baseline, but is anxious to be dis charged. 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 He is more concerned about having a conversation with his son and daughter, and what the kids would want. He does understand the seriousness of needing to define a durable power of health lens silverer for medical decision making. We did review in the context of that role and what is important that they understand about his wishes. He is hoping to continue to follow through on his appointments, he reports he is medication compliant, though does recognize he has had ongoing decline is anxious to work towards things that will improve his health. Results - Lab Results Lab results reviewed: Yes Fish Bones: 02/08/18 04:48 02/08/18 04:48 Lab and Imaging Results: Lab Results x24hrs 02/08/18 02/08/18 02/08/18 Range/Units 04:48 04:48 04:48 WBC 6.4 (4.8-10.8) x10^3/uL RBC 4.36 L (4.70-6.10) 10^6/uL Hgb 13.3 L (14.0-18.0) g/dL Hct 40.9 L (42.0-52.0) % MCV 93.8 (80.0-94.0) fL MCH 30.6 (27.0-31.0) pg MCHC 32.6 (32.0-36.0) g/dL RDW 16.3 H (12.0-15.0) % Plt Count 172 (130-450) 10^3/uL MPV 7.6 (7.4-11.4) fL Neut # (Auto) 4.3 (1.5-6.6) 10^3/uL Lymph # (Auto) 0.7 L (1.5-3.5) 10^3/uL [place] # (Auto) 1.0 (0.0-1.0) 10^3/uL Eos # (Auto) 0.3 (0.0-0.7) 10^3/uL Baso # (Auto) 0.1 (0.0-0.1) 10^3/uL Absolute Nucleated RBC 0.00 x10^3/uL Nucleated RBC % 0.0 /100WBC Sodium 136 (135-145) mmol/L Potassium 4.3 (3.5-5.0) mmol/L Chloride 93 L (101-111) mmol/L Carbon Dioxide 36 H (21-32) mmol/L Anion Gap 7.0 (6-13) BUN 61 H (6-20) mg/dL Creatinine 2.0 H (0.6-1.2) mg/dL Estimated GFR (MDRD) 34 L (>89) Glucose 100 (70-100) mg/dL Calcium 9.5 (8.5-10.3) mg/dL Magnesium 2.3 (1.7-2.8) mg/dL B-Natriuretic Peptide 285 H (5-100) pg/mL Impression and Recommendations - Palliative Care Impression: This is a 62-year-old gentleman who presented with acute on chronic heart failure, with worsening ejection 20-25%, worsening kidney function with a GFR of 34 now, and decline in functional status as well as increase in symptom burden. Palliative care to meet with patient regarding discussion of goals of care. Recommendations/Counseling Done: 1. Sarcoidosis. Patient does have ongoing relationship with Dr. Rai in pulmonology, given patient's recent CT findings, recommended follow up on discharge. In agreement. 2. Acute on chronic heart failure. Patient now has to follow-up with new energy analyst secondary to [facility]'s changes. He already has an appointment set up on 03/02. We did discuss in the context of perceived urgency, to go ahead and call secondary to recent hospitalization and get on waiting list. Patient is discouraged to have to be established new relationship, but is aware of the importance given his recent hospitalization. Patient does report he is comp liant, has a good relationship with his PCP Lindsey Pantoja, and will follow up accordingly. 3. Advanced care planning. Patient is not concerned regarding his future "whatever happens nexthappens". We did discuss in the context of the medical system, needing to understand his goals and if he were unable to speak for himself to be able to get guidance in the context of what is most important to him. He would like to further define this with his son and daughter, given they do have a good relationship. I did provide 5 wishes, the durable power of medical lens silverer document and how to fill this out, as well as the conversation project. We did discuss in the role of health proxy, that they are going to need to understand what is most important to him, what treatments are acceptable and not acceptable, and given his decline in health this is much more urgent than previously. He did appreciate the conversation and information provided, did discuss in the future in the context if things were to worsen or he had further concerns that he could follow-up with his PCP for referral for pa lliative care if needed did provide him a card for contact information Time Spent: 60 minutes with greater than 50% of this done in counseling regarding anticipatory guidance, goals of care, exploring patient's healthcare believes and impact on current decision-making.
[2018-02-09 06:02] LABS: CALCIUM 9.4 mg/dL (8.5-10.3); CREATININE 1.6 mg/dL (0.6-1.2); MAGNESIUM 2.3 mg/dL (1.7-2.8)
[2018-02-09] MEDS: FUROSEMIDE 20 MG TABLET PO SCH (06:39)
[2018-02-09] MEDS: SODIUM CHLORIDE FLUSH 0.9% 10 ML SYRINGE IVP SCH ×2 (06:39→08:12)
[2018-02-09] MEDS: ALLOPURINOL 100 MG TABLET PO SCH (08:10)
[2018-02-09] MEDS: FAMOTIDINE 20 MG TABLET PO SCH (08:10)
[2018-02-09] MEDS: DABIGATRAN 75 MG CAPSULE PO SCH (08:10)
[2018-02-09] MEDS: LISINOPRIL 5 MG TABLET PO SCH (08:10)
[2018-02-09] MEDS: POLYETHYLENE GLYCOL 3350 17 GM PACKET PO SCH (08:11)
[2018-02-09] MEDS: METOPROLOL SUCCINATE 50 MG TABLET PO SCH (08:11)
[2018-02-09 08:14] VITALS: BP 116/72
[2018-02-09] MEDS: SPIRONOLACTONE 25 MG TABLET PO SCH (08:16)
--- NOTE | 2018-02-09 10:40 | Discharge Plan ---
Discharge Plan Disposition: 01 Home, Self Care Condition: Good Prescriptions: Lisinopril [Zestril] 5 mg PO BID #30 tablet Diet: Low Sodium Activity Restrictions: Activity as Tolerated Shower Restrictions: No Driving Restrictions: No Weight Bearing: Full Weight Instruction Topics: Lisinopril tablets, Heart Failure, Heart Failure Tracking Weight, Heart Failure Diet Changes Additional Instructions or Follow Up instructions: You were admitted for congestive heart failure exacerbation and were given high dose diuretics. Your kidney function became worse, so you had a prolonged hospital stay. Today, your fluid status is on target, your labs are improved, and you no longer require oxygen. Continue to take all medications as prescribed and weigh your self each day. Your daily lisinopril dose has been reduced, and a new prescription is at your pharmacy. This was adjusted to a lower dose to preserve your kidney function. Please follow up with your primary care provider within one week to ensure that you continue on the right path. No Smoking: If you smoke, Please STOP! Call for help. Follow-up with: Lindsey Pantoja ARNP [Primary Care Provider] -
--- NOTE | 2018-02-09 10:44 | DISCHARGE SUMMARY ---
Discharge Summary Admit Date: 02/04/18 Discharge Date: 02/09/18 Discharging Provider: ERVIN [place] Primary Care Provider: Lindsey Pantoja Code Status: Attempt Resuscitation Condition at Discharge: Good Discharge Disposition: 01 Home, Self Care - DIAGNOSES Admission Diagnoses: CHF exacerbation (I50.9) COPD with hypoxia (J44.9) Afib (I48.91) HTN (hypertension) (I10) Sarcoidosis (D86.9) Discharge Diagnoses with Status of Each Condition: Acute on chronic combined systolic and diastolic heart failure, NYHA class 2 (I5 0.43) improved, stable weight, no oxygen needs. CHF exacerbation (I50.9) resolved. Acute kidney injury (N17.9) improved, lisinopril dose adjusted to prevent further injury. COPD with hypoxia (J44.9) resolved. Afib (I48.91) chronic, stable. HTN (hypertension) (I10) chronic, stable. Sarcoidosis (D86.9) chronic, stable. H/O cor pulmonale (Z86.79) chronic, stable. - HPI History of Present Illness: Edward Houser is a 62-year-old male with a past medical history of hypertension, tachy-parag syndrome requiring a pacemaker implant about 4 yrs ago, CHF, chronic atrial fibrillation on Pradaxa, chronic back pain, hyperlipidemia, sarcoidosis, and obesity. The patient presented to the emergency department for a 3-4 day history of worsening shortness of breath. He states, after he stayed at his mother home, in which he ate more of "good food" his mother made, he noticed worsening shortness of breath. He admits to gaining 3-4 pounds in the past few days, increased leg edema, orthopnea, and relates it to his CHF. The patient reported that he had a similar episode about 4 months ago, in which he was admitted in the hospital. The patient denies home oxygen use ,chest pain, fever, chill, or a cough. Labs show a significant elevation in the BNP at 4700 from 270 on last admission. A chest x-ray reveals ovoid, spiculated opacity in the right suprahilar region, neoplasm cannot be excluded, no significant changes in hazy bibasilar opacities, also raises the possibility of pulmonary arterial hypertension. A follow up chest CT is pending. The patient was admitted to inpatient for further treatment of this CHF exacerbation using IV diuretics, telemetry monitoring, and lab monitoring. - HOSPITAL COURSE Hospital Course: (1) Acute on chronic combined systolic and diastolic CHF exacerbation, NYHA class 2 The patient has been hospitalized in the past for CHF exacerbation, and admitted to "eating too much good food" at his mother's house prior to presenting to the ED. The patient had an extended length of stay due to difficulties with ongoing dyspnea with exertion and YANICK that is resolved upon discharge. Final echo results show a worsening EF of 20-25%, and severe global hypokinesis. Upon this admission, the patient's BNP was ~4700, that slowly improved to a final value of 285 at the time of discharge, which may have been influenced by his YANICK. The patient was put on a cardiac diet/fluid restriction. He required oxygen early in his hospital stay, that was gradually weaned off to room air. He was first given high dose IV lasix, that was transitioned to his usual home dose of 20mg PO BID, and his spironolactone was continued. (2) Hypoxia The patient presented to the ED with hypoxia and had an oxygen saturation of 87% on room air. He has a known history of sarccoidosis, long standing tobacco abuse, and sees a local hazmat driver regularly. There was a questionable right upper lobe nodule on a chest x-ray, and a follow up chest CT and a PET scan is recommended, but this will be deferred to the patient's PCP, pulmonology team. The patient was given PRN duonebs, albuterol, and was placed on supplemental oxygen at 1-3L per nasal cannula that was weaned off the day prior to discharge. (3) Afib The patient has a long history of this and is rate controlled using Metoprolol at 200mg PO daily, and is anticoagulated with Pradaxa, BOTH of which was continued for his hospital stay. He was continuously monitored on telemetry, showing atrial fib/flutter, paced rate in the 60-100's. His vital signs were monitored and and this condition is in stable condition upon discharge. (4) hypotension The patient had a mild decrease in his documented blood pressure readings with the lowest at 94/65 AND remained asymptomatic throughout his stay. This may have been from his high dose IV lasix, which was weaned to an oral dose. His Lisinopril dose was held, and resumed at only 5mg daily to prevent further kidney injury and this prescription was sent to the pharmacy. There were no other adjustments made and this condition is considered to be resolved upon discharge. (5) Sarcoidosis In addition to this known disease a chest CT indicated a PET scan for determination of a possible right upper lobe nodule. The patient has a planned followup with his local hazmat driver. The patient was not having any other lung symptoms and denied hemoptysis during this stay. He is not dependent on home oxygen and was having oxygen saturations in the high 90's on room air prior to discharge. (6) acute renal injury The patient has a favorable baseline creatinine of 1.0, and a creatinine max of 2.4 that was noted back on the year 2014. After a few days of heavy IV diuretic therapy, the patient was found to have acute kidney injury with an elevated creatinine of 2.0, that improved to 1.6 at the time of discharge. The patient continued to have adequate urinary output per I/O. The patient's home lisinopril was reduced from 20 mg PO daily, to just 5mg daily and his lasix and spironolactone remained at his previous amounts. Another contributing factor for this abnormality is his worsening EF of 20-25%. Disposition: The patient was independently ambulating in his room, did not require oxygen and was anxious to return home. His kidney injury had improved, and his lisinopril was adjusted to lessen the likelihood of continued nephrotoxic effects. - ALLERGIES Allergies/Adverse Reactions: Allergies Allergy/AdvReac Type Severity Reaction Status Date / Time No Known Drug Allergies Allergy Verified 02/04/18 13:16 - MEDICATIONS Home Medications: Ambulatory Orders Medication Instructions Recorded Confirmed Allopurinol [Zyloprim] 100 mg PO DAILY 09/12/17 02/04/18 Dabigatran Etexilate Mesylate 150 mg PO BID 09/12/17 02/04/18 [Pradaxa] Spironolactone [Aldactone] 25 mg PO DAILY #30 tablet 09/17/17 02/04/18 Furosemide [Lasix] 20 mg PO BIDDIURETIC 02/04/18 02/04/18 Metoprolol Succinate [Toprol Xl] 200 mg PO DAILY 02/04/18 02/04/18 Lisinopril [Zestril] 5 mg PO BID #30 tablet 02/09/18 - PHYSICAL EXAM AT DISCHARGE General Appearance: positive: No acute distress, Alert Eyes Bilateral: positive: Normal inspection, PERRL ENT: positive: ENT inspection nml, Pharynx nml, No signs of dehydration Neck: positive: Nml inspection, Thyroid nml, No JVD, Trachea midline Respiratory: positive: Chest non-tender, No respiratory distress, Breath sounds nml, Other (diminished, Bilaterally) Cardiovascular: positive: No gallop, Irregularly irregular, Systolic murmur Peripheral Pulses: positive: 1+ Abdomen: positive: Non-tender, Nml bowel sounds, Other (obese, soft) Back: positive: Nml inspection Skin: positive: No rash, Warm, Dry Extremities: positive: Non-tender, Full ROM, Pedal edema (mild, pitting BLE, dependent.) Neurologic/Psychiatric: positive: Oriented x3, CN's nml (2-12), Motor nml, Sensation nml, Mood/affect nml Reflexes: Bicep (R): 3+, Bicep (L): 3+ - LABS Result Diagrams: 02/08/18 04:48 02/09/18 05:43 - DIAGNOSTIC IMAGING Diagnostic Imaging Results: Final report reviewed Diagnostic Imaging Results Comments: EXAM: CHEST RADIOGRAPHY EXAM DATE: 02/04/2018 12:42 PM. IMPRESSION: 1. Ovoid, somewhat spiculated opacity in the right suprahilar region appears increased in density since 2017. Neoplasm cannot be excluded. Chest CT is recommended for further evaluation. 2. No significant change in hazy bibasilar opacities and small bilateral pleural effusions. Opacities may represent atelectasis or infiltrate. 3. Bilateral hilar prominence, present on multiple prior examinations and suggestive of pulmonary arterial enlargement, which raises the possibility of pulmonary arterial hypertension. EXAM: CT CHEST EXAM DATE: 02/04/2018 02:26 PM. IMPRESSION: 1. Thick, irregular linear opacity in the right upper lobe may reflect a chronic process but underlying neoplasm is not excluded. PET/CT or biopsy is recommended for further evaluation. 2. Mediastinal lymphadenopathy, possible retroperitoneal lymphadenopathy, and bilateral pleural effusions. ECHOCARDIOGRAM Final read by Ruby Pinto MD 1. Mild LV enlargement. 2. Mild concentric LV hypertrophy. 3. Overall LV systolic function is severely impaired with an EF of 20-25%. 4. There is severe global hypokinesis of LV contractility. 5. Moderate RV enlargement. 6. The RV systolic function is moderately impaired. 7. Pacemaker leads seen in the RA and RV. 8. Mildly abnormal right heart pressures. 9. The RVSP at rest is 48 mmHg. 10. The aortic root and ascending aorta are dilated measuring up to 4.1 cm. 11. The inferior vena cava is dilated (>2 cm) with <50% inspiratory collapse which is suggestive of RAP of at least 15 mmHg. - FOLLOW UP Follow Up: Disposition: 01 Home, Self Care Condition: Good Prescriptions: Lisinopril [Zestril] 5 mg PO BID #30 tablet Diet: Low Sodium Activity Restrictions: Activity as Tolerated Shower Restrictions: No Driving Restrictions: No Weight Bearing: Full Weight Instruction Topics: Lisinopril tablets, Heart Failure, Heart Failure Tracking Weight, Heart Failure Diet Changes Additional Instructions or Follow Up instructions: You were admitted for congestive heart failure exacerbation and were given high dose diuretics. Your kidney function became worse, so you had a prolonged hospital stay. Today, your fluid status is on target, your labs are improved, and you no longer require oxygen. Continue to take all medications as prescribed and weigh your self each day. Your daily lisinopril dose has been reduced, and a new prescription is at your pharmacy. This was adjusted to a lower dose to preserve your kidney function. Please follow up with your primary care provider within one week to ensure that you continue on the right path. *Admitting provider informed the patient of the possible right upper lung nodule. - TIME SPENT Time Spent in Discharge (Minutes): 40
== END 2018-02-09 11:41 | disposition home or self-care (01) | DRG 292 ==
LOC: ED 11:54 → MS2 14:02
PROVIDERS: ADMIT Nurse Practitioner Gerontology; ATTEND Nurse Practitioner
DX: I11.0 Hypertensive heart disease with heart failure (principal); I50.9 Heart failure, unspecified; N17.9 Acute kidney failure, unspecified; I50.43 Acute on chronic combined systolic (congestive) and diastolic (congestive) heart failure; R91.8 Other nonspecific abnormal finding of lung field; F17.200 Nicotine dependence, unspecified, uncomplicated; I50.1 Left ventricular failure, unspecified; I48.91 Unspecified atrial fibrillation; J44.9 Chronic obstructive pulmonary disease, unspecified; D86.9 Sarcoidosis, unspecified; R94.2 Abnormal results of pulmonary function studies; R59.1 Generalized enlarged lymph nodes; E78.5 Hyperlipidemia, unspecified; E66.9 Obesity, unspecified; Z68.32 Body mass index [BMI] 32.0-32.9, adult; R09.02 Hypoxemia; I95.9 Hypotension, unspecified; T50.1X5A Adverse effect of loop [high-ceiling] diuretics, initial encounter; Y92.230 Patient room in hospital as the place of occurrence of the external cause; Z59.0 Homelessness; Z51.5 Encounter for palliative care; Z79.899 Other long term (current) drug therapy; Z79.02 Long term (current) use of antithrombotics/antiplatelets; Z95.0 Presence of cardiac pacemaker; Z87.891 Personal history of nicotine dependence
CPT/HCPCS: 36415; 71046; 71260; 80048; 80053; 83690; 83735; 83880; 84484; 85025; 90686; 93005; 93306; 94640; 94664; 96374; 99222; 99284

== ENCOUNTER 2018-02-16 10:47 | Outpatient (CLI) | payer MEDICARE ==
[2018-02-16 17:26] LABS: BASOPHILS # (AUTO) 0.1 10^3/uL (0.0-0.1); BASOPHILS % (AUTO) 0.8 %; EOSINOPHILS # (AUTO) 0.2 10^3/uL (0.0-0.7); EOSINOPHILS % (AUTO) 1.9 %; HGB - HEMOGLOBIN 13.7 g/dL (14.0-18.0); LYMPHOCYTES # (AUTO) 0.5 10^3/uL (1.5-3.5); LYMPHOCYTES % (AUTO) 5.7 %; MEAN CORPUSCULAR HEMOGLOBIN 30.6 pg (27.0-31.0); MEAN CORPUSCULAR HGB CONC 31.9 g/dL (32.0-36.0); MEAN CORPUSCULAR VOLUME 95.8 fL (80.0-94.0); MEAN PLATELET VOLUME 8.5 fL (7.4-11.4); MONOCYTES # (AUTO) 0.6 10^3/uL (0.0-1.0); MONOCYTES % (AUTO) 7.1 %; NEUTROPHILS # (AUTO) 7.1 10^3/uL (1.5-6.6); NEUTROPHILS % (AUTO) 84.5 %; PLT - PLATELET COUNT 179 10^3/uL (130-450); RED BLOOD COUNT 4.48 10^6/uL (4.70-6.10); RED CELL DISTRIBUTION WIDTH 16.6 % (12.0-15.0); WHITE BLOOD COUNT 8.5 x10^3/uL (4.8-10.8)
[2018-02-16 17:29] LABS: CREATININE 1.1 mg/dL (0.6-1.2)
== END 2018-02-16 10:48 | disposition home or self-care (01) ==
LOC: LAB.F 10:47
PROVIDERS: ATTEND Nurse Practitioner Family
DX: I50.9 Heart failure, unspecified (principal); R94.4 Abnormal results of kidney function studies
CPT/HCPCS: 36415; 80048; 83880; 85025

== ENCOUNTER 2018-02-17 12:05 | Outpatient (CLI) | payer MEDICARE | END 2018-02-17 12:06 | disposition critical access hospital (66) | LOC: EMS 12:05 | PROVIDERS: ATTEND Surgery | DX: R06.02 Shortness of breath (principal) | CPT/HCPCS: A0425; A0429 ==

== ENCOUNTER 2018-02-17 12:38 | Emergency (ER) | payer MEDICARE ==
--- NOTE | 2018-02-17 12:48 | ED Physician Documentation ---
PD HPI DYSPNEA - Stated complaint Stated Complaint: SOA - Chief complaint Chief Complaint: Resp - Additional information Additional information: 62-year-old male with a history of congestive heart failure Who was recently admitted to the hospital for an acute congestive heart failure exacerbation presents with increased shortness of breath. The patient did not fill his prescription for Lasix and has not been taking his Lasix since leaving the hospital. The patient reports increased dyspnea on exertion and fluid gain. The patient denies chest pain, URI symptoms, fevers, peripheral edema or new or different changes. Symptoms are described as moderate. No other associated symptoms. Review of Systems Constitutional: denies: Fever, Fatigue Eyes: denies: Discharge Ears: denies: Ear pain Nose: denies: Congestion Cardiac: denies: Palpitations Respiratory: reports: Dyspnea GI: denies: Abdominal Pain, Nausea : denies: Dysuria Skin: denies: Rash Musculoskeletal: denies: Neck pain Neurologic: denies: Generalized weakness Psychiatric: denies: Hallucinations PD PAST MEDICAL HISTORY - Past Medical History Past Medical History: No Cardiovascular: Congestive heart failure, Hypertension, Atrial fibrillation, Arrhythmia Respiratory: Other Neuro: None Endocrine/Autoimmune: None GI: Colon polyps : Frequency HEENT: None Psych: None Musculoskeletal: Chronic back pain Derm: None Other Past Medical History: bilateral sarcoidosis - Past Surgical History Past Surgical History: Yes General: Colonoscopy Cardiovascular: Pacemaker, AAA HEENT: Tonsil/Adenoidectomy - Present Medications Home Medications: Ambulatory Orders Medication Instructions Recorded Confirmed Allopurinol [Zyloprim] 100 mg PO DAILY 09/12/17 02/04/18 Dabigatran Etexilate Mesylate 150 mg PO BID 09/12/17 02/04/18 [Pradaxa] Spironolactone [Aldactone] 25 mg PO DAILY #30 tablet 09/17/17 02/04/18 Furosemide [Lasix] 20 mg PO BIDDIURETIC 02/04/18 02/04/18 Metoprolol Succinate [Toprol Xl] 200 mg PO DAILY 02/04/18 02/04/18 Lisinopril [Zestril] 5 mg PO BID #30 tablet 02/09/18 Furosemide [Lasix] 20 mg PO BID #60 tablet 02/17/18 - Allergies Allergies/Adverse Reactions: Allergies Allergy/AdvReac Type Severity Reaction Status Date / Time No Known Drug Allergies Allergy Verified 02/17/18 12:41 - Social History Does the pt smoke?: No Smoking Status: Never smoker Does the pt drink ETOH?: Yes Does the pt have substance abuse?: Yes Substance Use and Type: Marijuana - Immunizations Immunizations are current?: Yes - POLST Patient has POLST: No PD ED PE NORMAL - General General: Alert and oriented X 3, No acute distress - HEENT HEENT: Atraumatic, PERRL, EOMI, Ears normal - Neck Neck: Supple, no meningeal sign - Cardiac Cardiac: Other (Irregular rhythm) - Respiratory Respiratory: No respiratory distress, Other (The patient has bilateral lower rails) - Abdomen Abdomen: Soft, Non tender - Derm Derm: Normal color - Extremities Extremities: No deformity, No edema - Neuro Neuro: Alert and oriented X 3, Normal speech - Psych Psych: Normal affect Results - Vitals Vitals: Vital Signs - 24 hr 02/17/18 02/17/18 02/17/18 12:39 14:02 14:49 Temperature 36.5 C Heart Rate 108 H 105 H 104 H Respiratory 18 24 24 Rate Blood Pressure 146/112 H 126/102 H 130/90 H O2 Saturation 92 95 94 02/17/18 02/17/18 02/17/18 15:00 15:07 15:12 Temperature Heart Rate 95 105 H 92 Respiratory 23 21 23 Rate Blood Pressure 128/100 H 124/102 H 133/90 H O2 Saturation 92 92 92 02/17/18 02/17/18 02/17/18 15:24 15:38 15:45 Temperature Heart Rate 98 100 87 Respiratory 24 23 21 Rate Blood Pressure 122/95 H 119/89 H 119/89 H O2 Saturation 92 88 L 94 Oxygen O2 Source [] Room air O2 Source [] Room air O2 Source Room air - EKG (time done) 12:40 Rate: Rate (enter#) Rhythm: Atrial fibrillation Intervals: QRS normal QRS: Normal Ischemia: Non specific changes Other comments: Other comments (Atrial fibrillation with nonspecific EKG changes) - Labs Labs: Laboratory Tests 02/17/18 02/17/18 02/17/18 13:18 13:18 13:18 WBC 7.9 RBC 4.38 L Hgb 13.8 L Hct 41.1 L MCV 93.6 MCH 31.4 H MCHC 33.5 RDW 16.3 H Plt Count 179 MPV 7.4 Neut # (Auto) 6.1 Lymph # (Auto) 0.6 L Sargent # (Auto) 0.9 Eos # (Auto) 0.2 Baso # (Auto) 0.1 Absolute Nucleated RBC 0.00 Nucleated RBC % 0.0 PT 16.3 H INR 1.5 H APTT 51.4 H Sodium Potassium Chloride Carbon Dioxide Anion Gap BUN Creatinine Estimated GFR (MDRD) Glucose Calcium Total Bilirubin AST ALT Alkaline Phosphatase Troponin I < 0.04 B-Natriuretic Peptide Total Protein Albumin Globulin Albumin/Globulin Ratio Lipase 02/17/18 02/17/18 13:18 13:24 WBC RBC Hgb Hct MCV MCH MCHC RDW Plt Count MPV Neut # (Auto) Lymph # (Auto) Sargent # (Auto) Eos # (Auto) Baso # (Auto) Absolute Nucleated RBC Nucleated RBC % PT INR APTT Sodium 138 Potassium 4.4 Chloride 106 Carbon Dioxide 28 Anion Gap 4.0 L BUN 17 Creatinine 0.9 Estimated GFR (MDRD) 85 L Glucose 84 Calcium 9.2 Total Bilirubin 0.8 AST 17 ALT 14 Alkaline Phosphatase 78 Troponin I B-Natriuretic Peptide 1230 H Total Protein 6.7 Albumin 3.5 Globulin 3.2 Albumin/Globulin Ratio 1.1 Lipase 34 - Rads (name of study) CXR Radiology: Final report received (1. Stable right suprahilar spiculated lesion since 2013. This favors benign etiology such as scarring. Please note that scar carcinoma still not excluded. Correlate clinically to determine if a dedicated chest CT should be considered to define this gentleman's baseline. 2. Increasing very small bilateral pleural effusions. 3. Mild cardiomegaly. Suspect mild vascular congestion. Pacer 4. Chronic lung disease. ) PD MEDICAL DECISION MAKING - ED course ED course: The patient was treated with Lasix in the emergency department sent had significant results. The patient clinically had improved, the patient was able to ambulate a reasonable distance and had no elevation his heart rate or hypoxia. The patient reports being at his baseline for his breathing. Presentl y, the patient appears appropriate for discharge and ongoing outpatient management. I wrote a prescription for his Lasix and advised the patient that he needs to have this filled at the pharmacy and take medications on a daily basis to help prevent recurrence of his congestive heart failure. I also discussed with the patient the findings seen on x-ray regarding the nodule, the patient is aware of this finding and is scheduled to see pulmonology and is in the process of having an outpatient CT scan performed. Presently, I do not see any findings on physical that would necessitate an emergent CT scan presently. Currently the patient appears appropriate for discharge and ongoing outpatient management. I discussed with the patient warning signs and recommended returning to the emergency department immediately for worsening symptoms or any concerns. Departure - Departure Disposition: 01 Home, Self Care Clinical Impression: Pulmonary nodule Congestive heart failure Qualifiers: Heart failure type: unspecified Heart failure chronicity: acute on chronic Qualified Code(s): I50.9 - Heart failure, unspecified Condition: Good Instructions: Heart Failure Meds Control, Heart Failure Follow-Up: Lindsey Pantoja ARNP [Primary Care Provider] - Within 3 Days Prescriptions: Furosemide [Lasix] 20 mg PO BID #60 tablet Comments: Please take your Lasix as prescribed. Please have this filled today at the pharmacy. Please return to the emergency department for any worsening or any concerns.
[2018-02-17] MEDS ORDERED: ASPIRIN CHEW 81 MG TABLET PO STA (12:51)
[2018-02-17] MEDS ORDERED: NITROGLYCERIN 2% PASTE TOP STA (12:52)
[2018-02-17] MEDS ORDERED: FUROSEMIDE 20 MG/2 ML VIAL IVP STA (12:52)
[2018-02-17 13:32] LABS: BASOPHILS # (AUTO) 0.1 10^3/uL (0.0-0.1); BASOPHILS % (AUTO) 1.3 %; EOSINOPHILS # (AUTO) 0.2 10^3/uL (0.0-0.7); HGB - HEMOGLOBIN 13.8 g/dL (14.0-18.0); LYMPHOCYTES # (AUTO) 0.6 10^3/uL (1.5-3.5); LYMPHOCYTES % (AUTO) 7.8 %; MEAN CORPUSCULAR HEMOGLOBIN 31.4 pg (27.0-31.0); MEAN CORPUSCULAR HGB CONC 33.5 g/dL (32.0-36.0); MEAN CORPUSCULAR VOLUME 93.6 fL (80.0-94.0); MEAN PLATELET VOLUME 7.4 fL (7.4-11.4); MONOCYTES # (AUTO) 0.9 10^3/uL (0.0-1.0); MONOCYTES % (AUTO) 11.2 %; NEUTROPHILS # (AUTO) 6.1 10^3/uL (1.5-6.6); NEUTROPHILS % (AUTO) 76.7 %; PLT - PLATELET COUNT 179 10^3/uL (130-450); RED BLOOD COUNT 4.38 10^6/uL (4.70-6.10); RED CELL DISTRIBUTION WIDTH 16.3 % (12.0-15.0); WHITE BLOOD COUNT 7.9 x10^3/uL (4.8-10.8)
[2018-02-17 13:39] LABS: INR 1.5 (0.8-1.2); PT - PROTHROMBIN TIME 16.3 secs (9.9-12.6)
[2018-02-17 13:41] LABS: ALBUMIN 3.5 g/dL (3.2-5.5); ALBUMIN/GLOBULIN RATIO 1.1 (1.0-2.2); BILIRUBIN,TOTAL 0.8 mg/dL (0.2-1.0); CALCIUM 9.2 mg/dL (8.5-10.3); CREATININE 0.9 mg/dL (0.6-1.2); TOTAL PROTEIN 6.7 g/dL (6.7-8.2)
--- NOTE | 2018-02-17 14:01 | XRAY Report ---
Reason: CP Procedure Date: 02/17/2018 Accession Number: [id number] / [id number] Procedure: XR - Chest 2 View X-Ray CPT Code: 18852 FULL RESULT: EXAM: CHEST RADIOGRAPHY EXAM DATE: 02/17/2018 01:39 PM. CLINICAL HISTORY: Chest pain. Shortness of breath. COMPARISON: CHEST 2 VIEW 02/04/2018 12:33 PM CHEST 2 VIEW PA/LAT 04/06/2014 11:09 AM. TECHNIQUE: 2 views. FINDINGS: Lungs/Pleura: 3 x 1.5 cm obliquely oriented irregular spiculated lesion right suprahilar region, grossly stable. Bibasilar interstitial fibrosis. Persistent mild bilateral perihilar interstitial prominence. Slight increase in the degree of mild blunting of both posterior costophrenic angles. Overexpanded lungs. No pneumothorax. Mediastinum: Stable mild cardiomegaly. Stable dual-lead left subclavian pacer. No tracheal shift. Other: None. IMPRESSION: 1. Stable right suprahilar spiculated lesion since 2013. This favors benign etiology such as scarring. Please note that scar carcinoma still not excluded. Correlate clinically to determine if a dedicated chest CT should be considered to define this gentleman's baseline. 2. Increasing very small bilateral pleural effusions. 3. Mild cardiomegaly. Suspect mild vascular congestion. Pacer. 4. Chronic lung disease. RADIA
[2018-02-17] MEDS ORDERED: diltiaZEM INJ 5 MG/ML VIAL IVP STA (14:35)
[2018-02-17] MEDS ORDERED: METOPROLOL 5 MG/5 ML VIAL IVP STA (14:35)
[2018-02-17 15:39] VITALS: BP 119/89
== END 2018-02-17 15:54 | disposition home or self-care (01) ==
LOC: EDUNIT# → ED 12:38
DX: I50.9 Heart failure, unspecified (principal); R91.1 Solitary pulmonary nodule; T50.1X6A Underdosing of loop [high-ceiling] diuretics, initial encounter; I48.91 Unspecified atrial fibrillation; I51.7 Cardiomegaly; J90 Pleural effusion, not elsewhere classified; I10 Essential (primary) hypertension; Z95.0 Presence of cardiac pacemaker
CPT/HCPCS: 36415; 71046; 80053; 83690; 83880; 84484; 85025; 85610; 85730; 93005; 99284; 99285; A9270

== ENCOUNTER 2018-04-05 08:00 | Outpatient (CLI) | payer MEDICARE | END 2018-04-05 23:59 | disposition home or self-care (01) | LOC: LAB.S 08:00 | PROVIDERS: ATTEND Nurse Practitioner | DX: M10.9 Gout, unspecified (principal) | CPT/HCPCS: 36415; 84550 ==

== ENCOUNTER 2018-08-05 11:18 | Outpatient (CLI) | payer MEDICARE | END 2018-08-05 11:19 | disposition EMS.NT | LOC: EMS 11:18 | PROVIDERS: ATTEND Surgery ==